=== PATIENT | male | born 1965 | race Caucasian/White ===

== ENCOUNTER 2016-03-30 17:09 | Emergency (ER) | payer BC, OTHER ==
[2016-03-30] MEDS ORDERED: TAMSULOSIN 0.4 MG CAP As Ordered ONE (18:34)
[2016-03-30] MEDS ORDERED: KETOROLAC 30 MG/ML VIAL (J1885) As Ordered ONE (18:34)
[2016-03-30 18:57] LABS: BASO # 0.2 K/mm3 (0.0-0.2); BASO % 2.6 % (0.0-1.0); EOS # 0.1 K/mm3 (0.0-0.50); EOS % 1.7 % (0.0-3.0); LARGE UNSTAINED CELL # 0.2 K/mm3 (0.0-0.4); LARGE UNSTAINED CELL % 2.3 % (0.0-4.0); LYMPH % 22.6 % (24.0-44.0); MEAN CORPUSCULAR HEMOGLOBIN 29.3 pg (27.0-33.0); MEAN CORPUSCULAR HGB CONC 33.4 g/dl (32.0-36.5); MEAN CORPUSCULAR VOLUME 87.9 fl (80.0-96.0); MONO # 0.6 K/mm3 (0.0-0.8); NEUTROPHILS # 5.2 K/mm3 (1.8-7.7); NEUTROPHILS % 63.8 % (36.0-66.0); PLATELET COUNT, AUTOMATED 298 k/mm3 (150-450); RED CELL DISTRIBUTION WIDTH 13.4 % (11.5-14.5); WHITE BLOOD COUNT 8.1 K/mm3 (4.0-10.0)
[2016-03-30 19:35] LABS: ALBUMIN 4.2 GM/DL (3.2-5.2); ALBUMIN/GLOBULIN RATIO 1.08 (1.00-1.93); ALKALINE PHOSPHATASE 65 U/L (45-117); ALT/SGPT 64 U/L (12-78); AMYLASE 64 U/L (25-115); ANION GAP 7 MEQ/L (8-16); AST/SGOT 29 U/L (15-37); BILIRUBIN,DIRECT 0.1 MG/DL (0.0-0.2); BILIRUBIN,TOTAL 0.6 MG/DL (0.2-1.0); BLOOD UREA NITROGEN 14 MG/DL (7-18); CALCIUM LEVEL 9.2 MG/DL (8.5-10.1); CARBON DIOXIDE LEVEL 30 MEQ/L (21-32); CHLORIDE LEVEL 104 MEQ/L (98-107); CREATININE FOR GFR 0.91 MG/DL (0.70-1.30); GLOMERULAR FILTRATION RATE > 60.0 (>60); GLUCOSE, FASTING 97 MG/DL (70-105); SODIUM LEVEL 141 MEQ/L (136-145); TOTAL PROTEIN 8.1 GM/DL (6.4-8.2)
[2016-03-30] MEDS ORDERED: METOCLOPRAMIDE INJ 10MG/2ML VIAL (J2765) As Ordered ONE (19:48)
[2016-03-30] MEDS ORDERED: diphenhydrAMINE INJ 50MG/ML VIAL (J1200) As Ordered ONE (19:48)
--- NOTE | 2016-03-30 20:25 | REP ---
Clinical: Right flank pain. Comparison: 02/17/2016. Findings: Lung bases are clear and stable. Fatty infiltration of the liver appreciated without focal hepatic lesion. Spleen, pancreas, bilateral adrenal glands are normal for noncontrast examination. Cholelithiasis noted without CT evidence for acute cholecystitis. Kidneys demonstrate mild, symmetric, chronic perinephric stranding without hydroureteronephrosis, intrarenal, or obstructing ureteral calculi. The enteric system is without obstruction or acute inflammatory process and a normal terminal ileum and appendix are identified in the right lower quadrant. Pelvis demonstrates normal bladder and age appropriate prostate/seminal vesicles. No ascites. No adenopathy. No free air. Vasculature is normal. Musculoskeletal structures demonstrate chronic L5 spondylolysis with grade 1 anterolisthesis. Impression: 1. Fatty infiltration to the liver. 2. Cholelithiasis without CT evidence for acute cholecystitis. 3. No acute urinary tract pathology. 4. Chronic L5 spondylolysis with grade 1 spondylolisthesis. 5. No free fluid and no acute intra-abdominal or pelvic pathology appreciated. Signed by Boston Beavers MD 03/30/2016 08:16 P
--- NOTE | 2016-03-30 21:12 | EDDOCDS ---
Nurse's Notes [facility] Name: Bang Natarajan Age: 50 yrs Sex: Male : 1965 Arrival Date: 03/30/2016 Time: 17:09 Bed I2 / M2 Private MD: Garrett Diallo P. Diagnosis: Spondylolisthesis, lumbar region;Spondylolysis, lumbar region Presentation: 03/30 17:19 Presenting complaint: Patient states: he was here a month ago for his GB - had an kcs appointment with Dr. Benavides but he got sick and could not go -has another appointment in 2 weeks but he is having another attack today. Mechanism of Injury: No Mechanism of Injury. Adult Sepsis Screening: The patient does not have new or worsening altered mentation. Patient's respiratory rate is less than 22. Systolic blood pressure is greater than 100. Patient has a qSOFA score of 0- Negative Sepsis Screen. Suicide/Homicide risk assessment- the patient denies having any suicidal and/or homicidal ideations and does not present with any other emotional, behavioral or mental health complaints. 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 Transition of care: patient was not received from another setting of care. 17:19 Acuity: RACHEL Level 3 kcs 17:19 Method Of Arrival: Walkin/Carried/Asstd kcs 21:11 Acute neurological deficits are not present. dsf Triage Assessment: 17:21 General: Appears comfortable, well developed, well nourished, well groomed, Behavior is kcs cooperative, pleasant. Pain: Location: Right flank Pain currently is 6 out of 10 on a pain scale. HIV screening NA for this visit Offered previously. Neurological: Level of Consciousness is awake, alert. Respiratory: Airway is patent Respiratory effort is even, unlabored, Respiratory pattern is regular, symmetrical. GI: Denies nausea, vomiting. Derm: Skin is intact, is healthy with good turgor, Skin is dry, Skin is normal. Historical: - Allergies: No known drug Allergies; - Home Meds: 1. omeprazole 20 mg Oral cpDR 1 cap once daily - PMHx: GERD; Cholecystitis; - PSHx: Hernia repair- Umbilical; - Social history: Smoking status: Patient states former smoker of tobacco. No barriers to communication noted, The patient speaks fluent Occitan. - Family history: Not pertinent. - : The pt / caregiver states he / she is not on anticoagulants. Home medication list is obtained from the patient, [employer] import data. - Exposure Risk Screening:: None identified. Screenin:07 Screening information is obtained from the patient. Fall risk: No risks identified. dsf Assistance ADL's: requires no assistance with activities of daily living. Abuse/DV Screen: The patient / caregiver reports he/she is: not in a situation that causes fear, pain or injury. Nutritional screening: No deficits noted. Advance Directives: Currently, there is no health care proxy. home support is adequate. Assessment: 20:18 Adult Sepsis Screening: The patient does not have new or worsening altered mentation. dsf Patient's respiratory rate is less than 22. Systolic blood pressure is greater than 100. Patient has a qSOFA score of 0- Negative Sepsis Screen. General: Appears in no apparent distress, uncomfortable, Behavior is appropriate for age, cooperative. Pain: Location: right flank Pain currently is 7 out of 10 on a pain scale. Quality of pain is described as sharp. Neurological: Level of Consciousness is awake, alert. Cardiovascular: Capillary refill < 3 seconds. Respiratory: Airway is patent Respiratory effort is even, unlabored, Respiratory pattern is regular, symmetrical. Derm: Skin is pink, warm & dry. Musculoskeletal: No deficits noted. 20:44 General: Appears in no apparent distress, comfortable, Behavior is appropriate for age, dsf cooperative. Pain: Location: right flank Pain currently is 3 out of 10 on a pain scale. Cardiovascular: No deficits noted. Respiratory: No deficits noted. Derm: Skin is pink, warm & dry. 21:07 Adult Sepsis Screening: The patient does not have new or worsening altered mentation. dsf Patient's respiratory rate is less than 22. Systolic blood pressure is greater than 100. Patient has a qSOFA score of 0- Negative Sepsis Screen. General: Appears in no apparent distress, comfortable, Behavior is appropriate for age, cooperative. Pain: Pain currently is 3 out of 10 on a pain scale. Neurological: Level of Consciousness is awake, alert. Cardiovascular: No deficits noted. Respiratory: No deficits noted. Derm: Skin is pink, warm & dry. Vital Signs: 17:11 BP 158 / 87; Pulse 76; Resp 18; Temp 97.7(O); Pulse Ox 96% ; Weight 120.2 kg; Height 6 cmb ft. 1 in. (185.42 cm); Pain 6/10; 20:43 Pain 3/10; dsf 20:43 Pain 3/10; dsf 21:07 BP 129 / 72; Pulse 81; Resp 20; Temp 97.0(O); Pulse Ox 96% on R/A; Pain 3/10; dsf 17:11 Body Mass Index 34.96 (120.20 kg, 185.42 cm) cmb Vitals: 17:11 Log In Time: March 30, 2016 at 17:09. cmb ED Course: 17:10 Patient visited by Cynthia Spear. cmb 17:10 Garrett Diallo is Private Physician. cmb 17:10 Patient moved to Waiting cmb 17:12 Patient moved to Pre RCE cmb 17:20 Triage Initiated kcs 18:11 Patient moved to Triage 3 jrd 18:24 Yamil Maddox PA is PHCP. btw 18:24 Janes Zambrano MD is Attending Physician. btw 18:24 Patient visited by Yamil Maddox PA. btw 18:43 Urinalysis Sent. jrd 18:43 Urine Culture Sent. jrd 18:44 Patient moved to TR2 jrd 18:48 Amylase Sent. rs3 18:49 Basic Metabolic Profile Sent. rs3 18:49 CBC with Diff Sent. rs3 18:49 Lipase Sent. rs3 18:49 Liver Profile Sent. rs3 18:52 [facility] Payment Agreement was scanned into [employer] and attached to record. ks16 19:40 Patient moved to PR1 / 25 dsf 19:45 Patient moved to PD2 / 27 dsf 19:45 Patient moved to I2 / M2 dsf 20:18 Inserted saline lock: 20 gauge in right hand The patient tolerated the procedure well. dsf 20:19 Patient visited by Sofia Pimentel,RN. dsf 20:44 Patient visited by Sofia Pimentel,SKY. dsf 20:55 CT ABD & PELVIS: No Contrast Returned. EDMS 21:02 Garrett Diallo is Referral Physician. btw 21:07 The patient / caregiver is instructed regarding the plan of care and ED course. dsf 21:07 Discontinued lock intact, bleeding controlled, pressure dressing applied, No dsf redness/swelling at site. No procedures done that require assistance. Administered Medications: 18:48 Drug: ketorolac 30 mg [ketorolac 30 mg/mL (1 mL) injection solution (1 mL)] Route: IM; rs3 Site: left gluteus; 18:48 Drug: Tamsulosin 0.4 mg [tamsulosin 0.4 mg capsule (1 caps)] Route: PO; rs3 19:47 CANCELLED (Other Intervention Used): Robaxin 500 mg IVPB at 200 mL/hr once over 15 btw mins; dilute in 50mL of NS 20:18 Drug: Metoclopramide 20 mg [metoclopramide 5 mg/mL injection solution] Route: IV; Rate: dsf 80 mg/hr; Infused Over: 15 mins; Site: right hand; 20:43 Follow up: Pain 3/10 Adult; IV Status: Completed infusion; IV Intake: 50ml dsf 20:43 Follow up: Pain 310 Adult dsf 20:18 Drug: diphenhydrAMINE 50 mg [diphenhydramine 50 mg/mL injection solution (1 mL)] Route: dsf IVP; Site: right hand; Intake: 20:43 IV: 50.00ml; Total: 50.00ml. dsf Order Results: Lab Order: Amylase; SPEC'M 03/30/16 18:44 Test: AMYLASE; Value: 64; Range: 25-115; Units: U/L; Status: F Lab Order: Basic Metabolic Profile; SPEC'M 03/30/16 18:44 Test: GLUCOSE, FASTING; Value: 97; Range: 70-105; Units: MG/DL; Status: F Test: BLOOD UREA NITROGEN; Value: 14; Range: 7-18; Units: MG/DL; Status: F Test: CREATININE FOR GFR; Value: 0.91; Range: 0.70-1.30; Units: MG/DL; Status: F Test: GLOMERULAR FILTRATION RATE; Value: > 60.0; Range: >60; Status: F Test: SODIUM LEVEL; Value: 141; Range: 136-145; Units: MEQ/L; Status: F Test: POTASSIUM SERUM; Value: 4.0; Range: 3.5-5.1; Units: MEQ/L; Status: F Test: CHLORIDE LEVEL; Value: 104; Range: 98-107; Units: MEQ/L; Status: F Test: CARBON DIOXIDE LEVEL; Value: 30; Range: 21-32; Units: MEQ/L; Status: F Test: ANION GAP; Value: 7; Range: 8-16; Abnormal: Below low normal; Units: MEQ/L; Status: F Test: CALCIUM LEVEL; Value: 9.2; Range: 8.5-10.1; Units: MG/DL; Status: F Test Note: ; Units are mL/min/1.73 m2 Chronic Kidney Disease Staging per NKF: Stage I & II GFR >=60 Normal to Mildly Decreased Stage III GFR 30-59 Moderately Decreased Stage IV GFR 15-29 Severely Decreased Stage V GFR <15 Very Little GFR Left ESRD GFR <15 on ORDERLIES 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 Lab Order: CBC with Diff; SPEC'M 03/30/16 18:44 Test: WHITE BLOOD COUNT; Value: 8.1; Range: 4.0-10.0; Units: K/mm3; Status: F Test: RED BLOOD COUNT; Value: 5.09; Range: 4.30-6.10; Units: M/mm3; Status: F Test: HEMOGLOBIN; Value: 14.9; Range: 14.0-18.0; Units: g/dl; Status: F Test: HEMATOCRIT; Value: 44.7; Range: 42.0-52.0; Units: %; Status: F Test: MEAN CORPUSCULAR VOLUME; Value: 87.9; Range: 80.0-96.0; Units: fl; Status: F Test: MEAN CORPUSCULAR HEMOGLOBIN; Value: 29.3; Range: 27.0-33.0; Units: pg; Status: F Test: MEAN CORPUSCULAR HGB CONC; Value: 33.4; Range: 32.0-36.5; Units: g/dl; Status: F Test: RED CELL DISTRIBUTION WIDTH; Value: 13.4; Range: 11.5-14.5; Units: %; Status: F Test: PLATELET COUNT, AUTOMATED; Value: 298; Range: 150-450; Units: k/mm3; Status: F Test: NEUTROPHILS %; Value: 63.8; Range: 36.0-66.0; Units: %; Status: F Test: LYMPH %; Value: 22.6; Range: 24.0-44.0; Abnormal: Below low normal; Units: %; Status: F Test: MONO %; Value: 7.0; Range: 0.0-5.0; Abnormal: Above high normal; Units: %; Status: F Test: EOS %; Value: 1.7; Range: 0.0-3.0; Units: %; Status: F Test: BASO %; Value: 2.6; Range: 0.0-1.0; Abnormal: Above high normal; Units: %; Status: F Test: LARGE UNSTAINED CELL %; Value: 2.3; Range: 0.0-4.0; Units: %; Status: F Test: NEUTROPHILS #; Value: 5.2; Range: 1.8-7.7; Units: K/mm3; Status: F Test: LYMPH #; Value: 2.0; Range: 1.5-4.5; Units: K/mm3; Status: F Test: MONO #; Value: 0.6; Range: 0.0-0.8; Units: K/mm3; Status: F Test: EOS #; Value: 0.1; Range: 0.0-0.50; Units: K/mm3; Status: F Test: BASO #; Value: 0.2; Range: 0.0-0.2; Units: K/mm3; Status: F Test: LARGE UNSTAINED CELL #; Value: 0.2; Range: 0.0-0.4; Units: K/mm3; Status: F Lab Order: Lipase; [facility]' 03/30/16 18:44 Test: LIPASE; Value: 135; Range: 73-393; Units: U/L; Status: F Lab Order: Liver Profile; [facility]' 03/30/16 18:44 Test: AST/SGOT; Value: 29; Range: 15-37; Units: U/L; Status: F Test: ALT/SGPT; Value: 64; Range: 12-78; Units: U/L; Status: F Test: ALKALINE PHOSPHATASE; Value: 65; Range: 45-117; Units: U/L; Status: F Test: BILIRUBIN,TOTAL; Value: 0.6; Range: 0.2-1.0; Units: MG/DL; Status: F Test: BILIRUBIN,DIRECT; Value: 0.1; Range: 0.0-0.2; Units: MG/DL; Status: F Test: TOTAL PROTEIN; Value: 8.1; Range: 6.4-8.2; Units: GM/DL; Status: F Test: ALBUMIN; Value: 4.2; Range: 3.2-5.2; Units: GM/DL; Status: F Test: ALBUMIN/GLOBULIN RATIO; Value: 1.08; Range: 1.00-1.93; Status: F Lab Order: Urinalysis; SPEC'M 03/30/16 18:37 Test: APPEARANCE, URINE; Value: HAZY; Range: CLEAR; Status: F Test: COLOR, URINE; Value: YELLOW; Range: YELLOW; Status: F Test: PH,URINE; Value: 5.0; Range: 5.0-9.0; Units: UNITS; Status: F Test: SPECIFIC GRAVITY URINE AUTO; Value: 1.032; Range: 1.002-1.035; Status: F Test: PROTEIN, URINE AUTO; Value: 1+; Range: NEGATIVE; Abnormal: Above high normal; Units: mg/dL; Status: F Test: GLUCOSE, URINE (UA) AUTO; Value: NEGATIVE; Range: NEGATIVE; Units: mg/dL; Status: F Test: KETONE, URINE AUTO; Value: NEGATIVE; Range: NEGATIVE; Units: mg/dL; Status: F Test: UROBILINOGEN, URINE AUTO; Value: 0.2; Range: 0.0-2.0; Units: mg/dL; Status: F Test: BILIRUBIN, URINE AUTO; Value: NEGATIVE; Range: NEGATIVE; Status: F Test: NITRITE, URINE AUTO; Value: NEGATIVE; Range: NEGATIVE; Status: F Test: LEUKOCYTE ESTERASE, URINE AUTO; Value: NEGATIVE; Range: NEGATIVE; Status: F Test: BLOOD, URINE BLOOD; Value: NEGATIVE; Range: NEGATIVE; Status: F Test: WBC, URINE AUTO; Value: 4; Range: 0-3; Abnormal: Above high normal; Units: /HPF; Status: F Test: RBC, URINE AUTO; Value: 1; Range: 0-3; Units: /HPF; Status: F Test: BACTERIA, URINE AUTO; Value: NEGATIVE; Range: NEGATIVE; Status: F Test: SQUAMOUS EPITHELIAL CELL UR AU; Value: 0; Range: 0-6; Units: /HPF; Status: F Test: MUCUS, URINE; Value: MODERATE; Range: NEGATIVE; Status: F Test: HYALINE CAST, URINE AUTO; Value: 1; Range: 0-1; Units: /LPF; Status: F Radiology Order: CT ABD & PELVIS: No Contrast Test: CT ABD & PELVIS: No Contrast REASON FOR EXAMINATION: R flank pain; Clinical: Right flank pain.; ; Comparison: 02/17/2016.; ; Findings:; Lung bases are clear and stable.; ; Fatty infiltration of the liver appreciated without focal hepatic lesion.; Spleen, pancreas, bilateral adrenal glands are normal for noncontrast; examination. Cholelithiasis noted without CT evidence for acute cholecystitis.; Kidneys demonstrate mild, symmetric, chronic perinephric stranding without; hydroureteronephrosis, intrarenal, or obstructing ureteral calculi. The enteric; system is without obstruction or acute inflammatory process and a normal terminal; ileum and appendix are identified in the right lower quadrant. Pelvis; demonstrates normal bladder and age appropriate prostate/seminal vesicles. No; ascites. No adenopathy. No free air. Vasculature is normal. Musculoskeletal; structures demonstrate chronic L5 spondylolysis with grade 1 anterolisthesis.; ; Impression:; 1. Fatty infiltration to the liver.; 2. Cholelithiasis without CT evidence for acute cholecystitis.; 3. No acute urinary tract pathology.; 4. 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 No free fluid and no acute intra-abdominal or pelvic pathology appreciated.; ; ; Signed by; Boston Beavers MD 03/30/2016 08:16 P; Outcome: 21:02 Discharge ordered by Provider. btw 21:07 Discharge Assessment: Patient awake, alert and oriented x 3. No cognitive and/or dsf functional deficits noted. Patient verbalized understanding of disposition instructions. patient administered narcotics - no. The following High Risk Discharge criteria are identified: None. Discharged to home ambulatory. Condition: stable. Discharge instructions given to patient, Instructed on discharge instructions, follow up and referral plans. medication usage, no driving heavy equipment, Demonstrated understanding of instructions, medications, Pt was receptive of discharge instructions/ teaching. Prescriptions given X 2, Work note provided to patient. CT Study completed. Property sent home with patient. 21:11 Patient left the ED. dsf Signatures: Dispatcher [facility] Tamela Del Rosario RN RN kcs Lois MistryRN RN rs3 Yamil Maddox PA PA btw Fuller, Desiree,RN RN Cynthia Candelaria Joseph, SHARMILA RN SURGERY ICU jrd Cindy Negron, Reg Reg ks16 MTDD
--- NOTE | 2016-03-30 21:12 | EDDOCDS ---
Physician Documentation [facility] Name: Bang Natarajan Age: 50 yrs Sex: Male : 1965 Arrival Date: 03/30/2016 Time: 17:09 Bed I2 / M2 Private MD: Garrett Diallo P. Disposition: 03/30/16 21:02 Discharged to Home/Self Care. Impression: Spondylolisthesis, lumbar region, Spondylolysis, lumbar region. - Condition is Stable. - Discharge Instructions: Back Pain, Adult. - Prescriptions for Medrol (Watson) 4 mg Oral Tablets, Dose Pack - take 1 Pack by ORAL route as directed - follow package instructions; 1 packet. Robaxin- 750 750 mg Oral Tablet - take 1 tablet by ORAL route every 6 hours As needed; 40 tablet. - Medication Reconciliation, Local Pharmacy Hours form. - Follow up: Garrett Diallo; When: 1 - 2 days; Reason: Further diagnostic work-up, Recheck today's complaints, Continuance of care. - Problem is an acute exacerbation. - Symptoms have improved. Historical: - Allergies: No known drug Allergies; - Home Meds: 1. omeprazole 20 mg Oral cpDR 1 cap once daily - PMHx: GERD; Cholecystitis; - PSHx: Hernia repair- Umbilical; - Social history: Smoking status: Patient states former smoker of tobacco. No barriers to communication noted, The patient speaks fluent Czech. - Family history: Not pertinent. - : The pt / caregiver states he / she is not on anticoagulants. Home medication list is obtained from the patient, [employer] import data. - Exposure Risk Screening:: None identified. Vital Signs: 03/30 17:11 BP 158 / 87; Pulse 76; Resp 18; Temp 97.7(O); Pulse Ox 96% ; Weight 120.2 kg / 265 lbs; cmb Height 6 ft. 1 in. (185.42 cm); Pain 6/10; 20:43 Pain 3/10; dsf 20:43 Pain 3/10; dsf 21:07 BP 129 / 72; Pulse 81; Resp 20; Temp 97.0(O); Pulse Ox 96% on R/A; Pain 3/10; dsf 17:11 Body Mass Index 34.96 (120.20 kg, 185.42 cm) cmb MDM: 18:32 ketorolac 30 mg IM once ordered. btw 18:32 Tamsulosin Extended Release 24 hour Capsule 0.4 mg PO once ordered. btw 18:33 Amylase Ordered. EDMS 18:33 Basic Metabolic Profile Ordered. EDMS 18:33 CBC with Diff Ordered. EDMS 18:33 Lipase Ordered. EDMS 18:33 Liver Profile Ordered. EDMS 18:33 Urinalysis Ordered. EDMS 18:33 Urine Culture Ordered. EDMS 18:33 NOTHING BY MOUTH+DIET ordered. EDMS 18:50 Financial registration complete. ks16 18:52 [facility] Payment Agreement was scanned into [employer] and attached to record. ks16 19:12 CBC with Diff Reviewed. btw 19:12 Urinalysis Reviewed. btw 19:38 Basic Metabolic Profile Reviewed. btw 19:38 Amylase Reviewed. btw 19:38 Lipase Reviewed. btw 19:38 Liver Profile Reviewed. btw 19:47 IV Saline Lock ordered. btw 19:47 Metoclopramide 20 mg IV at 80 mg/hr once over 15 mins ordered. btw 19:47 diphenhydrAMINE 50 mg IVP once ordered. btw 19:48 CT ABD & PELVIS: No Contrast Ordered. EDMS 20:56 CT ABD & PELVIS: No Contrast Reviewed. btw Administered Medications: 18:48 Drug: ketorolac 30 mg [ketorolac 30 mg/mL (1 mL) injection solution (1 mL)] Route: IM; rs3 Site: left gluteus; 18:48 Drug: Tamsulosin 0.4 mg [tamsulosin 0.4 mg capsule (1 caps)] Route: PO; rs3 19:47 CANCELLED (Other Intervention Used): Robaxin 500 mg IVPB at 200 mL/hr once over 15 btw mins; dilute in 50mL of NS 20:18 Drug: Metoclopramide 20 mg [metoclopramide 5 mg/mL injection solution] Route: IV; Rate: dsf 80 mg/hr; Infused Over: 15 mins; Site: right hand; 20:43 Follow up: Pain 3/10 Adult; IV Status: Completed infusion; IV Intake: 50ml dsf 20:43 Follow up: Pain 3/10 Adult dsf 20:18 Drug: diphenhydrAMINE 50 mg [diphenhydramine 50 mg/mL injection solution (1 mL)] Route: dsf IVP; Site: right hand; Signatures: Dispatcher [employer] Tamela Del Rosario RN RN kcs Wolfenden, Brandon, PA PA Sofia Higgins RN RN dsf Sorenson, Kimberly, Reg Reg ks16 Lois Mistry RN rs3 The chart was reviewed and I authenticate all verbal orders and agree with the evaluation and treatment provided.Corrections: (The following items were deleted from the chart) 19:47 19:47 Robaxin 500 mg IVPB at 200 mL/hr once over 15 mins; dilute in 50mL of NS ordered. shameka myles Attachments: 18:52 [facility] Payment Agreement [email or web address] MTDD
--- NOTE | 2016-04-01 22:12 | EDDOCDS ---
Nurse's Notes [facility] Name: Bang Natarajan Age: 50 yrs Sex: Male : 1965 Arrival Date: 03/30/2016 Time: 17:09 Bed I2 / M2 Private MD: Garrett Diallo P. Diagnosis: Spondylolisthesis, lumbar region;Spondylolysis, lumbar region Presentation: 03/30 17:19 Presenting complaint: Patient states: he was here a month ago for his GB - had an kcs appointment with Dr. Benavides but he got sick and could not go -has another appointment in 2 weeks but he is having another attack today. Mechanism of Injury: No Mechanism of Injury. Adult Sepsis Screening: The patient does not have new or worsening altered mentation. Patient's respiratory rate is less than 22. Systolic blood pressure is greater than 100. Patient has a qSOFA score of 0- Negative Sepsis Screen. Suicide/Homicide risk assessment- the patient denies having any suicidal and/or homicidal ideations and does not present with any other emotional, behavioral or mental health complaints. Status: Patient is not a health services manager or dependent. Transition of care: patient was not received from another setting of care. 17:19 Acuity: RACHEL Level 3 kcs 17:19 Method Of Arrival: Walkin/Carried/Asstd kcs 21:11 Acute neurological deficits are not present. dsf Triage Assessment: 17:21 General: Appears comfortable, well developed, well nourished, well groomed, Behavior is kcs cooperative, pleasant. Pain: Location: Right flank Pain currently is 6 out of 10 on a pain scale. HIV screening NA for this visit Offered previously. Neurological: Level of Consciousness is awake, alert. Respiratory: Airway is patent Respiratory effort is even, unlabored, Respiratory pattern is regular, symmetrical. GI: Denies nausea, vomiting. Derm: Skin is intact, is healthy with good turgor, Skin is dry, Skin is normal. Historical: - Allergies: No known drug Allergies; - Home Meds: 1. omeprazole 20 mg Oral cpDR 1 cap once daily - PMHx: GERD; Cholecystitis; - PSHx: Hernia repair- Umbilical; - Social history: Smoking status: Patient states former smoker of tobacco. No barriers to communication noted, The patient speaks fluent Amharic. - Family history: Not pertinent. - : The pt / caregiver states he / she is not on anticoagulants. Home medication list is obtained from the patient, [employer] import data. - Exposure Risk Screening:: None identified. Screenin:07 Screening information is obtained from the patient. Fall risk: No risks identified. dsf Assistance ADL's: requires no assistance with activities of daily living. Abuse/DV Screen: The patient / caregiver reports he/she is: not in a situation that causes fear, pain or injury. Nutritional screening: No deficits noted. Advance Directives: Currently, there is no health care proxy. home support is adequate. Assessment: 20:18 Adult Sepsis Screening: The patient does not have new or worsening altered mentation. dsf Patient's respiratory rate is less than 22. Systolic blood pressure is greater than 100. Patient has a qSOFA score of 0- Negative Sepsis Screen. General: Appears in no apparent distress, uncomfortable, Behavior is appropriate for age, cooperative. Pain: Location: right flank Pain currently is 7 out of 10 on a pain scale. Quality of pain is described as sharp. Neurological: Level of Consciousness is awake, alert. Cardiovascular: Capillary refill < 3 seconds. Respiratory: Airway is patent Respiratory effort is even, unlabored, Respiratory pattern is regular, symmetrical. Derm: Skin is pink, warm & dry. Musculoskeletal: No deficits noted. 20:44 General: Appears in no apparent distress, comfortable, Behavior is appropriate for age, dsf cooperative. Pain: Location: right flank Pain currently is 3 out of 10 on a pain scale. Cardiovascular: No deficits noted. Respiratory: No deficits noted. Derm: Skin is pink, warm & dry. 21:07 Adult Sepsis Screening: The patient does not have new or worsening altered mentation. dsf Patient's respiratory rate is less than 22. Systolic blood pressure is greater than 100. Patient has a qSOFA score of 0- Negative Sepsis Screen. General: Appears in no apparent distress, comfortable, Behavior is appropriate for age, cooperative. Pain: Pain currently is 3 out of 10 on a pain scale. Neurological: Level of Consciousness is awake, alert. Cardiovascular: No deficits noted. Respiratory: No deficits noted. Derm: Skin is pink, warm & dry. Vital Signs: 17:11 BP 158 / 87; Pulse 76; Resp 18; Temp 97.7(O); Pulse Ox 96% ; Weight 120.2 kg; Height 6 cmb ft. 1 in. (185.42 cm); Pain 6/10; 20:43 Pain 3/10; dsf 20:43 Pain 3/10; dsf 21:07 BP 129 / 72; Pulse 81; Resp 20; Temp 97.0(O); Pulse Ox 96% on R/A; Pain 3/10; dsf 17:11 Body Mass Index 34.96 (120.20 kg, 185.42 cm) cmb Vitals: 17:11 Log In Time: March 30, 2016 at 17:09. cmb ED Course: 17:10 Patient visited by Cynthia Spear. cmb 17:10 Garrett Diallo is Private Physician. cmb 17:10 Patient moved to Waiting cmb 17:12 Patient moved to Pre RCE cmb 17:20 Triage Initiated kcs 18:11 Patient moved to Triage 3 jrd 18:24 Yamil Maddox PA is PHCP. btw 18:24 Janes Zambrano MD is Attending Physician. btw 18:24 Patient visited by Yamil Maddox PA. btw 18:43 Urinalysis Sent. jrd 18:43 Urine Culture Sent. jrd 18:44 Patient moved to TR2 jrd 18:48 Amylase Sent. rs3 18:49 Basic Metabolic Profile Sent. rs3 18:49 CBC with Diff Sent. rs3 18:49 Lipase Sent. rs3 18:49 Liver Profile Sent. rs3 18:52 [facility] [place] Agreement was scanned into [employer] and attached to record. ks16 19:40 Patient moved to PR1 / 25 dsf 19:45 Patient moved to PD2 / 27 dsf 19:45 Patient moved to I2 / M2 dsf 20:18 Inserted saline lock: 20 gauge in right hand The patient tolerated the procedure well. dsf 20:19 Patient visited by Sofia Pimentel,RN. dsf 20:44 Patient visited by Sofia Pimentel,SKY. dsf 20:55 CT ABD & PELVIS: No Contrast Returned. EDMS 21:02 Garrett Diallo is Referral Physician. btw 21:07 The patient / caregiver is instructed regarding the plan of care and ED course. dsf 21:07 Discontinued lock intact, bleeding controlled, pressure dressing applied, No dsf redness/swelling at site. No procedures done that require assistance. 03/31 11:48 T-Sheet-- Draft Copy was scanned into [employer] and attached to record. gb Administered Medications: 03/30 18:48 Drug: ketorolac 30 mg [ketorolac 30 mg/mL (1 mL) injection solution (1 mL)] Route: IM; rs3 Site: left gluteus; 18:48 Drug: Tamsulosin 0.4 mg [tamsulosin 0.4 mg capsule (1 caps)] Route: PO; rs3 19:47 CANCELLED (Other Intervention Used): Robaxin 500 mg IVPB at 200 mL/hr once over 15 btw mins; dilute in 50mL of NS 20:18 Drug: Metoclopramide 20 mg [metoclopramide 5 mg/mL injection solution] Route: IV; Rate: dsf 80 mg/hr; Infused Over: 15 mins; Site: right hand; 20:43 Follow up: Pain 3/10 Adult; IV Status: Completed infusion; IV Intake: 50ml dsf 20:43 Follow up: Pain 3/10 Adult dsf 20:18 Drug: diphenhydrAMINE 50 mg [diphenhydramine 50 mg/mL injection solution (1 mL)] Route: dsf IVP; Site: right hand; Intake: 20:43 IV: 50.00ml; Total: 50.00ml. dsf Order Results: Lab Order: Amylase; SPEC'M 03/30/16 18:44 Test: AMYLASE; Value: 64; Range: 25-115; Units: U/L; Status: F Lab Order: Basic Metabolic Profile; SPEC'M 03/30/16 18:44 Test: GLUCOSE, FASTING; Value: 97; Range: 70-105; Units: MG/DL; Status: F Test: BLOOD UREA NITROGEN; Value: 14; Range: 7-18; Units: MG/DL; Status: F Test: CREATININE FOR GFR; Value: 0.91; Range: 0.70-1.30; Units: MG/DL; Status: F Test: GLOMERULAR FILTRATION RATE; Value: > 60.0; Range: >60; Status: F Test: SODIUM LEVEL; Value: 141; Range: 136-145; Units: MEQ/L; Status: F Test: POTASSIUM SERUM; Value: 4.0; Range: 3.5-5.1; Units: MEQ/L; Status: F Test: CHLORIDE LEVEL; Value: 104; Range: 98-107; Units: MEQ/L; Status: F Test: CARBON DIOXIDE LEVEL; Value: 30; Range: 21-32; Units: MEQ/L; Status: F Test: ANION GAP; Value: 7; Range: 8-16; Abnormal: Below low normal; Units: MEQ/L; Status: F Test: CALCIUM LEVEL; Value: 9.2; Range: 8.5-10.1; Units: MG/DL; Status: F Test Note: ; Units are mL/min/1.73 m2 Chronic Kidney Disease Staging per NKF: Stage I & II GFR >=60 Normal to Mildly Decreased Stage III GFR 30-59 Moderately Decreased Stage IV GFR 15-29 Severely Decreased Stage V GFR <15 Very Little GFR Left ESRD GFR <15 on [employer]INE [employer]OTOGR[employer] Lab Order: CBC with Diff; SPEC'M 03/30/16 18:44 Test: WHITE BLOOD COUNT; Value: 8.1; Range: 4.0-10.0; Units: K/mm3; Status: F Test: RED BLOOD COUNT; Value: 5.09; Range: 4.30-6.10; Units: M/mm3; Status: F Test: HEMOGLOBIN; Value: 14.9; Range: 14.0-18.0; Units: g/dl; Status: F Test: HEMATOCRIT; Value: 44.7; Range: 42.0-52.0; Units: %; Status: F Test: MEAN CORPUSCULAR VOLUME; Value: 87.9; Range: 80.0-96.0; Units: fl; Status: F Test: MEAN CORPUSCULAR HEMOGLOBIN; Value: 29.3; Range: 27.0-33.0; Units: pg; Status: F Test: MEAN CORPUSCULAR HGB CONC; Value: 33.4; Range: 32.0-36.5; Units: g/dl; Status: F Test: RED CELL DISTRIBUTION WIDTH; Value: 13.4; Range: 11.5-14.5; Units: %; Status: F Test: PLATELET COUNT, AUTOMATED; Value: 298; Range: 150-450; Units: k/mm3; Status: F Test: NEUTROPHILS %; Value: 63.8; Range: 36.0-66.0; Units: %; Status: F Test: LYMPH %; Value: 22.6; Range: 24.0-44.0; Abnormal: Below low normal; Units: %; Status: F Test: MONO %; Value: 7.0; Range: 0.0-5.0; Abnormal: Above high normal; Units: %; Status: F Test: EOS %; Value: 1.7; Range: 0.0-3.0; Units: %; Status: F Test: BASO %; Value: 2.6; Range: 0.0-1.0; Abnormal: Above high normal; Units: %; Status: F Test: LARGE UNSTAINED CELL %; Value: 2.3; Range: 0.0-4.0; Units: %; Status: F Test: NEUTROPHILS #; Value: 5.2; Range: 1.8-7.7; Units: K/mm3; Status: F Test: LYMPH #; Value: 2.0; Range: 1.5-4.5; Units: K/mm3; Status: F Test: MONO #; Value: 0.6; Range: 0.0-0.8; Units: K/mm3; Status: F Test: EOS #; Value: 0.1; Range: 0.0-0.50; Units: K/mm3; Status: F Test: BASO #; Value: 0.2; Range: 0.0-0.2; Units: K/mm3; Status: F Test: LARGE UNSTAINED CELL #; Value: 0.2; Range: 0.0-0.4; Units: K/mm3; Status: F Lab Order: Lipase; SPEC'M 03/30/16 18:44 Test: LIPASE; Value: 135; Range: 73-393; Units: U/L; Status: F Lab Order: Liver Profile; SPEC'M 03/30/16 18:44 Test: AST/SGOT; Value: 29; Range: 15-37; Units: U/L; Status: F Test: ALT/SGPT; Value: 64; Range: 12-78; Units: U/L; Status: F Test: ALKALINE PHOSPHATASE; Value: 65; Range: 45-117; Units: U/L; Status: F Test: BILIRUBIN,TOTAL; Value: 0.6; Range: 0.2-1.0; Units: MG/DL; Status: F Test: BILIRUBIN,DIRECT; Value: 0.1; Range: 0.0-0.2; Units: MG/DL; Status: F Test: TOTAL PROTEIN; Value: 8.1; Range: 6.4-8.2; Units: GM/DL; Status: F Test: ALBUMIN; Value: 4.2; Range: 3.2-5.2; Units: GM/DL; Status: F Test: ALBUMIN/GLOBULIN RATIO; Value: 1.08; Range: 1.00-1.93; Status: F Lab Order: Urinalysis; SPEC'M 03/30/16 18:37 Test: APPEARANCE, URINE; Value: HAZY; Range: CLEAR; Status: F Test: COLOR, URINE; Value: YELLOW; Range: YELLOW; Status: F Test: PH,URINE; Value: 5.0; Range: 5.0-9.0; Units: UNITS; Status: F Test: SPECIFIC GRAVITY URINE AUTO; Value: 1.032; Range: 1.002-1.035; Status: F Test: PROTEIN, URINE AUTO; Value: 1+; Range: NEGATIVE; Abnormal: Above high normal; Units: mg/dL; Status: F Test: GLUCOSE, URINE (UA) AUTO; Value: NEGATIVE; Range: NEGATIVE; Units: mg/dL; Status: F Test: KETONE, URINE AUTO; Value: NEGATIVE; Range: NEGATIVE; Units: mg/dL; Status: F Test: UROBILINOGEN, URINE AUTO; Value: 0.2; Range: 0.0-2.0; Units: mg/dL; Status: F Test: BILIRUBIN, URINE AUTO; Value: NEGATIVE; Range: NEGATIVE; Status: F Test: NITRITE, URINE AUTO; Value: NEGATIVE; Range: NEGATIVE; Status: F Test: LEUKOCYTE ESTERASE, URINE AUTO; Value: NEGATIVE; Range: NEGATIVE; Status: F Test: BLOOD, URINE BLOOD; Value: NEGATIVE; Range: NEGATIVE; Status: F Test: WBC, URINE AUTO; Value: 4; Range: 0-3; Abnormal: Above high normal; Units: /HPF; Status: F Test: RBC, URINE AUTO; Value: 1; Range: 0-3; Units: /HPF; Status: F Test: BACTERIA, URINE AUTO; Value: NEGATIVE; Range: NEGATIVE; Status: F Test: SQUAMOUS EPITHELIAL CELL UR AU; Value: 0; Range: 0-6; Units: /HPF; Status: F Test: MUCUS, URINE; Value: MODERATE; Range: NEGATIVE; Status: F Test: HYALINE CAST, URINE AUTO; Value: 1; Range: 0-1; Units: /LPF; Status: F Lab Order: Urine Culture; SPEC'M 03/30/16 18:37 Test: URINE CULTURE; Value: URINE CULTURE RESULT NO GROWTH; Status: F Radiology Order: CT ABD & PELVIS: No Contrast Test: CT ABD & PELVIS: No Contrast REASON FOR EXAMINATION: R flank pain; Clinical: Right flank pain.; ; Comparison: 02/17/2016.; ; Findings:; Lung bases are clear and stable.; ; Fatty infiltration of the liver appreciated without focal hepatic lesion.; Spleen, pancreas, bilateral adrenal glands are normal for noncontrast; examination. Cholelithiasis noted without CT evidence for acute cholecystitis.; Kidneys demonstrate mild, symmetric, chronic perinephric stranding without; hydroureteronephrosis, intrarenal, or obstructing ureteral calculi. The enteric; system is without obstruction or acute inflammatory process and a normal terminal; ileum and appendix are identified in the right lower quadrant. Pelvis; demonstrates normal bladder and age appropriate prostate/seminal vesicles. No; ascites. No adenopathy. No free air. Vasculature is normal. Musculoskeletal; structures demonstrate chronic L5 spondylolysis with grade 1 anterolisthesis.; ; Impression:; 1. Fatty infiltration to the liver.; 2. Cholelithiasis without CT evidence for acute cholecystitis.; 3. No acute urinary tract pathology.; 4. 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 No free fluid and no acute intra-abdominal or pelvic pathology appreciated.; ; ; Signed by; Boston Beavers MD 03/30/2016 08:16 P; Outcome: 21:02 Discharge ordered by Provider. btw 21:07 Discharge Assessment: Patient awake, alert and oriented x 3. No cognitive and/or dsf functional deficits noted. Patient verbalized understanding of disposition instructions. patient administered narcotics - no. The following High Risk Discharge criteria are identified: None. Discharged to home ambulatory. Condition: stable. Discharge instructions given to patient, Instructed on discharge instructions, follow up and referral plans. medication usage, no driving heavy equipment, Demonstrated understanding of instructions, medications, Pt was receptive of discharge instructions/ teaching. Prescriptions given X 2, Work note provided to patient. CT Study completed. Property sent home with patient. 21:11 Patient left the ED. dsf Signatures: Dispatcher [employer] EDTamela Hernandez, RN RN [facility] Siobhan Reynolds, Reg Reg gb Lois Mistry RN RN rs3 Yamil Maddox PA PA btw Fuller, Desiree, RN RN dsf Cynthia Spear Joseph, [employer] Cindy Suh, Reg Reg [email or web address] Chart Complete MTDD
--- NOTE | 2016-04-01 22:12 | EDDOCDS ---
Physician Documentation [facility] Name: Bang Natarajan Age: 50 yrs Sex: Male : 1965 Arrival Date: 03/30/2016 Time: 17:09 Bed I2 / M2 Private MD: Garrett Diallo P. Disposition: 03/30/16 21:02 Discharged to Home/Self Care. Impression: Spondylolisthesis, lumbar region, Spondylolysis, lumbar region. - Condition is Stable. - Discharge Instructions: Back Pain, Adult. - Prescriptions for Medrol (Watson) 4 mg Oral Tablets, Dose Pack - take 1 Pack by ORAL route as directed - follow package instructions; 1 packet. Robaxin- 750 750 mg Oral Tablet - take 1 tablet by ORAL route every 6 hours As needed; 40 tablet. - Medication Reconciliation, Local Pharmacy Hours form. - Follow up: Garrett Diallo; When: 1 - 2 days; Reason: Further diagnostic work-up, Recheck today's complaints, Continuance of care. - Problem is an acute exacerbation. - Symptoms have improved. Historical: - Allergies: No known drug Allergies; - Home Meds: 1. omeprazole 20 mg Oral cpDR 1 cap once daily - PMHx: GERD; Cholecystitis; - PSHx: Hernia repair- Umbilical; - Social history: Smoking status: Patient states former smoker of tobacco. No barriers to communication noted, The patient speaks fluent Arabic. - Family history: Not pertinent. - : The pt / caregiver states he / she is not on anticoagulants. Home medication list is obtained from the patient, [employer] import data. - Exposure Risk Screening:: None identified. Vital Signs: 03/30 17:11 BP 158 / 87; Pulse 76; Resp 18; Temp 97.7(O); Pulse Ox 96% ; Weight 120.2 kg / 265 lbs; cmb Height 6 ft. 1 in. (185.42 cm); Pain 6/10; 20:43 Pain 3/10; dsf 20:43 Pain 3/10; dsf 21:07 BP 129 / 72; Pulse 81; Resp 20; Temp 97.0(O); Pulse Ox 96% on R/A; Pain 3/10; dsf 17:11 Body Mass Index 34.96 (120.20 kg, 185.42 cm) cmb MDM: 18:32 ketorolac 30 mg IM once ordered. btw 18:32 Tamsulosin Extended Release 24 hour Capsule 0.4 mg PO once ordered. btw 18:33 Amylase Ordered. EDMS 18:33 Basic Metabolic Profile Ordered. EDMS 18:33 CBC with Diff Ordered. EDMS 18:33 Lipase Ordered. EDMS 18:33 Liver Profile Ordered. EDMS 18:33 Urinalysis Ordered. EDMS 18:33 Urine Culture Ordered. EDMS 18:33 NOTHING BY MOUTH+DIET ordered. EDMS 18:50 Financial registration complete. [email or web address] 18:52 [facility] Payment Agreement was scanned into [employer] and attached to record. ks16 19:12 CBC with Diff Reviewed. btw 19:12 Urinalysis Reviewed. btw 19:38 Basic Metabolic Profile Reviewed. btw 19:38 Amylase Reviewed. btw 19:38 Lipase Reviewed. btw 19:38 Liver Profile Reviewed. btw 19:47 IV Saline Lock ordered. btw 19:47 Metoclopramide 20 mg IV at 80 mg/hr once over 15 mins ordered. btw 19:47 diphenhydrAMINE 50 mg IVP once ordered. btw 19:48 CT ABD & PELVIS: No Contrast Ordered. EDMS 20:56 CT ABD & PELVIS: No Contrast Reviewed. btw 03/31 11:48 T-Sheet-- Draft Copy was scanned into [employer] and attached to record. gb Administered Medications: 03/30 18:48 Drug: ketorolac 30 mg [ketorolac 30 mg/mL (1 mL) injection solution (1 mL)] Route: IM; rs3 Site: left gluteus; 18:48 Drug: Tamsulosin 0.4 mg [tamsulosin 0.4 mg capsule (1 caps)] Route: PO; rs3 19:47 CANCELLED (Other Intervention Used): Robaxin 500 mg IVPB at 200 mL/hr once over 15 btw mins; dilute in 50mL of NS 20:18 Drug: Metoclopramide 20 mg [metoclopramide 5 mg/mL injection solution] Route: IV; Rate: dsf 80 mg/hr; Infused Over: 15 mins; Site: right hand; 20:43 Follow up: Pain 3/10 Adult; IV Status: Completed infusion; IV Intake: 50ml dsf 20:43 Follow up: Pain 3/10 Adult dsf 20:18 Drug: diphenhydrAMINE 50 mg [diphenhydramine 50 mg/mL injection solution (1 mL)] Route: dsf IVP; Site: right hand; Signatures: Dispatcher [employer] Tamela Del Rosario RN RN [facility] Siobhan Reynolds, Reg Reg gb Yamil Maddox PA PA btw Fuller, Desiree, RN RN dsf Cindy Negron, Reg Reg ks16 Lois Mistry RN rs3 The chart was reviewed and I authenticate all verbal orders and agree with the evaluation and treatment provided.Corrections: (The following items were deleted from the chart) 19:47 19:47 Robaxin 500 mg IVPB at 200 mL/hr once over 15 mins; dilute in 50mL of NS ordered. shameka myles Attachments: 18:52 [facility] Payment Agreement [email or web address] 03/31 11:48 T-Sheet-- Draft Copy Chart Complete MTDD
--- NOTE | 2016-04-01 22:12 | EDDOCDS ---
Physician Documentation [facility] Name: Bang Natarajan Age: 50 yrs Sex: Male : 1965 Arrival Date: 03/30/2016 Time: 17:09 Bed I2 / M2 Private MD: Garrett Diallo P. Disposition: 03/30/16 21:02 Discharged to Home/Self Care. Impression: Spondylolisthesis, lumbar region, Spondylolysis, lumbar region. - Condition is Stable. - Discharge Instructions: Back Pain, Adult. - Prescriptions for Medrol (Watson) 4 mg Oral Tablets, Dose Pack - take 1 Pack by ORAL route as directed - follow package instructions; 1 packet. Robaxin- 750 750 mg Oral Tablet - take 1 tablet by ORAL route every 6 hours As needed; 40 tablet. - Medication Reconciliation, Local Pharmacy Hours form. - Follow up: Garrett Diallo; When: 1 - 2 days; Reason: Further diagnostic work-up, Recheck today's complaints, Continuance of care. - Problem is an acute exacerbation. - Symptoms have improved. Historical: - Allergies: No known drug Allergies; - Home Meds: 1. omeprazole 20 mg Oral cpDR 1 cap once daily - PMHx: GERD; Cholecystitis; - PSHx: Hernia repair- Umbilical; - Social history: Smoking status: Patient states former smoker of tobacco. No barriers to communication noted, The patient speaks fluent Chinese. - Family history: Not pertinent. - : The pt / caregiver states he / she is not on anticoagulants. Home medication list is obtained from the patient, [employer] import data. - Exposure Risk Screening:: None identified. Vital Signs: 03/30 17:11 BP 158 / 87; Pulse 76; Resp 18; Temp 97.7(O); Pulse Ox 96% ; Weight 120.2 kg / 265 lbs; cmb Height 6 ft. 1 in. (185.42 cm); Pain 6/10; 20:43 Pain 3/10; dsf 20:43 Pain 3/10; dsf 21:07 BP 129 / 72; Pulse 81; Resp 20; Temp 97.0(O); Pulse Ox 96% on R/A; Pain 3/10; dsf 17:11 Body Mass Index 34.96 (120.20 kg, 185.42 cm) cmb MDM: 18:32 ketorolac 30 mg IM once ordered. btw 18:32 Tamsulosin Extended Release 24 hour Capsule 0.4 mg PO once ordered. btw 18:33 Amylase Ordered. EDMS 18:33 Basic Metabolic Profile Ordered. EDMS 18:33 CBC with Diff Ordered. EDMS 18:33 Lipase Ordered. EDMS 18:33 Liver Profile Ordered. EDMS 18:33 Urinalysis Ordered. EDMS 18:33 Urine Culture Ordered. EDMS 18:33 NOTHING BY MOUTH+DIET ordered. EDMS 18:50 Financial registration complete. [email or web address] 18:52 [facility] Payment Agreement was scanned into [employer] and attached to record. ks16 19:12 CBC with Diff Reviewed. btw 19:12 Urinalysis Reviewed. btw 19:38 Basic Metabolic Profile Reviewed. btw 19:38 Amylase Reviewed. btw 19:38 Lipase Reviewed. btw 19:38 Liver Profile Reviewed. btw 19:47 IV Saline Lock ordered. btw 19:47 Metoclopramide 20 mg IV at 80 mg/hr once over 15 mins ordered. btw 19:47 diphenhydrAMINE 50 mg IVP once ordered. btw 19:48 CT ABD & PELVIS: No Contrast Ordered. EDMS 20:56 CT ABD & PELVIS: No Contrast Reviewed. btw 03/31 11:48 T-Sheet-- Draft Copy was scanned into [employer] and attached to record. gb Administered Medications: 03/30 18:48 Drug: ketorolac 30 mg [ketorolac 30 mg/mL (1 mL) injection solution (1 mL)] Route: IM; rs3 Site: left gluteus; 18:48 Drug: Tamsulosin 0.4 mg [tamsulosin 0.4 mg capsule (1 caps)] Route: PO; rs3 19:47 CANCELLED (Other Intervention Used): Robaxin 500 mg IVPB at 200 mL/hr once over 15 btw mins; dilute in 50mL of NS 20:18 Drug: Metoclopramide 20 mg [metoclopramide 5 mg/mL injection solution] Route: IV; Rate: dsf 80 mg/hr; Infused Over: 15 mins; Site: right hand; 20:43 Follow up: Pain 3/10 Adult; IV Status: Completed infusion; IV Intake: 50ml dsf 20:43 Follow up: Pain 3/10 Adult dsf 20:18 Drug: diphenhydrAMINE 50 mg [diphenhydramine 50 mg/mL injection solution (1 mL)] Route: dsf IVP; Site: right hand; Signatures: Dispatcher [employer] Tamela Del Rosario RN RN [facility] Siobhan Reynolds, Reg Reg gb Yamil Maddox PA PA btw Fuller, Desiree, RN RN dsf Cindy Negron, Reg Reg ks16 Lois Mistry RN rs3 The chart was reviewed and I authenticate all verbal orders and agree with the evaluation and treatment provided.Corrections: (The following items were deleted from the chart) 19:47 19:47 Robaxin 500 mg IVPB at 200 mL/hr once over 15 mins; dilute in 50mL of NS ordered. shameka myles Attachments: 18:52 [facility] Payment Agreement [email or web address] 03/31 11:48 T-Sheet-- Draft Copy Chart Complete MTDD
== END 2016-03-30 21:11 | disposition home or self-care (01) ==
LOC: M ED 17:09
DX: R10.9 Unspecified abdominal pain (principal); K21.9 Gastro-esophageal reflux disease without esophagitis; Z79.899 Other long term (current) drug therapy
CPT/HCPCS: 74176; 80048; 80076; 81001; 82150; 83690; 85025; 87086; 96365; 96372; 96375; 99284; J1200; J1885; J2765

== ENCOUNTER → 2016-08-29 | Outpatient (REF) | payer OTHER ==
[2016-08-29 14:06] LABS: BASO % 0.7 % (0.0-1.0); EOS # 0.2 K/mm3 (0.0-0.50); EOS % 2.5 % (0.0-3.0); LARGE UNSTAINED CELL # 0.1 K/mm3 (0.0-0.4); LARGE UNSTAINED CELL % 1.9 % (0.0-4.0); LYMPH # 2.3 K/mm3 (1.5-4.5); MEAN CORPUSCULAR HEMOGLOBIN 30.7 pg (27.0-33.0); MEAN CORPUSCULAR HGB CONC 33.7 g/dl (32.0-36.5); MEAN CORPUSCULAR VOLUME 91.1 fl (80.0-96.0); MONO # 0.5 K/mm3 (0.0-0.8); MONO % 8.1 % (0.0-5.0); NEUTROPHILS # 3.3 K/mm3 (1.8-7.7); NEUTROPHILS % 52.9 % (36.0-66.0); PLATELET COUNT, AUTOMATED 217 k/mm3 (150-450); RED CELL DISTRIBUTION WIDTH 12.8 % (11.5-14.5); WHITE BLOOD COUNT 6.3 K/mm3 (4.0-10.0)
[2016-08-29 14:07] LABS: ANION GAP 5 MEQ/L (8-16); BLOOD UREA NITROGEN 13 MG/DL (7-18); CALCIUM LEVEL 8.9 MG/DL (8.5-10.1); CARBON DIOXIDE LEVEL 30 MEQ/L (21-32); CHLORIDE LEVEL 101 MEQ/L (98-107); CHOLESTEROL LEVEL 177 MG/DL (<200); CREATININE FOR GFR 0.91 MG/DL (0.70-1.30); GLOMERULAR FILTRATION RATE > 60.0 (>56); GLUCOSE, FASTING 105 MG/DL (70-105); POTASSIUM SERUM 3.9 MEQ/L (3.5-5.1); SODIUM LEVEL 136 MEQ/L (136-145); TRIGLYCERIDES LEVEL 156 MG/DL (<150)
== END ==
LOC: M LABWUC 13:31
PROVIDERS: ATTEND Physician Assistant Medical
DX: R42 Dizziness and giddiness (principal); R03.0 Elevated blood-pressure reading, without diagnosis of hypertension; R35.8 Other polyuria; Z83.3 Family history of diabetes mellitus; R63.1 Polydipsia

== ENCOUNTER 2017-06-11 15:28 | Emergency (ER) | payer BC, OTHER ==
[2017-06-11 16:16] LABS: BASO % 0.5 % (0.0-1.0); EOS # 0.1 10^3/uL (0.0-0.50); EOS % 1.3 % (0.0-3.0); HEMATOCRIT 41.9 % (42.0-52.0); HEMOGLOBIN 13.8 g/dl (14.0-18.0); IMMATURE GRANULOCYTE % 0.4 % (0-3.0); LYMPH # 2.1 10^3/uL (1.5-4.5); LYMPH % 25.1 % (24.0-44.0); MEAN CORPUSCULAR HEMOGLOBIN 29.6 pg (27.0-33.0); MEAN CORPUSCULAR HGB CONC 32.9 g/dl (32.0-36.5); MEAN CORPUSCULAR VOLUME 89.9 fl (80.0-96.0); MONO % 12.2 % (0.0-5.0); NEUTROPHILS # 4.9 10^3/uL (1.8-7.7); NEUTROPHILS % 60.5 % (36.0-66.0); PLATELET COUNT, AUTOMATED 238 10^3/uL (150-450); RED BLOOD COUNT 4.66 10^6/uL (4.30-6.10); RED CELL DISTRIBUTION WIDTH 12.6 % (11.5-14.5); WHITE BLOOD COUNT 8.2 10^3/uL (4.0-10.0)
[2017-06-11] MEDS: ASPIRIN 81 MG CHEW TABLET PO (16:24)
[2017-06-11 16:25] LABS: INR 0.89; PROTHROMBIN TIME 12.1 SECONDS (12.4-14.5)
[2017-06-11 16:26] LABS: PARTIAL THROMBOPLASTIN TIME 25.5 SECONDS (26.8-37.9)
[2017-06-11] MEDS: NITROGLYCERIN 0.4 MG SUBL TABLET SL (16:26)
[2017-06-11 16:35] LABS: ALBUMIN 3.9 GM/DL (3.2-5.2); ALBUMIN/GLOBULIN RATIO 1.08 (1.00-1.93); ALKALINE PHOSPHATASE 52 U/L (45-117); ALT/SGPT 50 U/L (12-78); ANION GAP 9 MEQ/L (8-16); AST/SGOT 23 U/L (7-37); BILIRUBIN,DIRECT < 0.1 MG/DL (0.0-0.2); BILIRUBIN,TOTAL 0.3 MG/DL (0.2-1.0); BLOOD UREA NITROGEN 17 MG/DL (7-18); CARBON DIOXIDE LEVEL 25 MEQ/L (21-32); CHLORIDE LEVEL 107 MEQ/L (98-107); CPK CREATINE PHOSPHOKINASE 255 U/L (39-308); CREATININE FOR GFR 0.88 MG/DL (0.70-1.30); GLOMERULAR FILTRATION RATE > 60.0 (>56); GLUCOSE, FASTING 88 MG/DL (70-100); LIPASE 163 U/L (73-393); SODIUM LEVEL 141 MEQ/L (136-145); TOTAL PROTEIN 7.5 GM/DL (6.4-8.2); TROPONIN I < 0.02 NG/ML (< 0.10)
[2017-06-11] MEDS: NS 500 ML IV (16:36)
[2017-06-11 16:41] LABS: CK-MB VALUE MASS 2.5 NG/ML (<3.6); MB/CK RELATIVE INDEX 0.98 (< OR =4); NT-PRO BNP 28 PG/ML (<125); THYROID STIMULATING HORMONE 0.986 uIU/ML (0.358-3.740)
[2017-06-11 22:52] LABS: CK-MB VALUE MASS 2.2 NG/ML (<3.6); CPK CREATINE PHOSPHOKINASE 192 U/L (39-308); MB/CK RELATIVE INDEX 1.14 (< OR =4); TROPONIN I < 0.02 NG/ML (< 0.10)
== END 2017-06-11 23:37 | disposition home or self-care (01) ==
LOC: M ED 15:28
DX: R07.89 Other chest pain (principal); R00.1 Bradycardia, unspecified; R06.02 Shortness of breath; K21.9 Gastro-esophageal reflux disease without esophagitis; E66.9 Obesity, unspecified; Z87.828 Personal history of other (healed) physical injury and trauma; Z87.19 Personal history of other diseases of the digestive system; Z87.891 Personal history of nicotine dependence
CPT/HCPCS: 71045

== ENCOUNTER 2017-11-19 19:13 | Emergency (ER) | payer BC, OTHER ==
[2017-11-19] MEDS: PANTOPRAZOLE 40MG INJ (PROTONIX) (C9113) IV (20:06)
[2017-11-19] MEDS: MORPHINE 2 MG/ML 1ML SYRINGE (J2270) IV (20:07)
[2017-11-19] MEDS: ASPIRIN 325 MG TAB PO (20:07)
[2017-11-19 20:16] LABS: BASO # 0.1 10^3/uL (0.0-0.2); BASO % 0.8 % (0.0-1.0); EOS # 0.1 10^3/uL (0.0-0.50); EOS % 1.6 % (0.0-3.0); HEMATOCRIT 40.7 % (42.0-52.0); HEMOGLOBIN 13.5 g/dl (13.5-17.5); IMMATURE GRANULOCYTE % 0.4 % (0-3.0); LYMPH # 2.2 10^3/uL (1.5-4.5); LYMPH % 29.3 % (24.0-44.0); MEAN CORPUSCULAR HEMOGLOBIN 29.9 pg (27.0-33.0); MEAN CORPUSCULAR HGB CONC 33.2 g/dl (32.0-36.5); MEAN CORPUSCULAR VOLUME 90.2 fl (80.0-96.0); MONO # 0.7 10^3/uL (0.0-0.8); MONO % 9.8 % (0.0-5.0); NEUTROPHILS # 4.3 10^3/uL (1.8-7.7); NEUTROPHILS % 58.1 % (36.0-66.0); PLATELET COUNT, AUTOMATED 227 10^3/uL (150-450); RED BLOOD COUNT 4.51 10^6/uL (4.30-6.10); RED CELL DISTRIBUTION WIDTH 12.8 % (11.5-14.5); WHITE BLOOD COUNT 7.4 10^3/uL (4.0-10.0)
[2017-11-19 20:26] LABS: INR 0.99; PROTHROMBIN TIME 13.2 SECONDS (12.1-14.4)
[2017-11-19 20:27] LABS: PARTIAL THROMBOPLASTIN TIME 25.1 SECONDS (25.4-37.6)
[2017-11-19 20:40] LABS: ALBUMIN 3.7 GM/DL (3.2-5.2); ALBUMIN/GLOBULIN RATIO 1.06 (1.00-1.93); ALKALINE PHOSPHATASE 52 U/L (45-117); ALT/SGPT 52 U/L (12-78); ANION GAP 9 MEQ/L (8-16); AST/SGOT 26 U/L (7-37); BILIRUBIN,DIRECT < 0.1 MG/DL (0.0-0.2); BILIRUBIN,TOTAL 0.3 MG/DL (0.2-1.0); BLOOD UREA NITROGEN 13 MG/DL (7-18); CARBON DIOXIDE LEVEL 25 MEQ/L (21-32); CHLORIDE LEVEL 108 MEQ/L (98-107); CPK CREATINE PHOSPHOKINASE 178 U/L (39-308); CREATININE FOR GFR 0.95 MG/DL (0.70-1.30); GLOMERULAR FILTRATION RATE > 60.0 (>56); GLUCOSE, FASTING 126 MG/DL (70-100); LIPASE 181 U/L (73-393); MB/CK RELATIVE INDEX 1.68 (< OR =4); POTASSIUM SERUM 3.7 MEQ/L (3.5-5.1); SODIUM LEVEL 142 MEQ/L (136-145); TOTAL PROTEIN 7.2 GM/DL (6.4-8.2); TROPONIN I < 0.02 NG/ML (< 0.10)
[2017-11-19] MEDS: LORazepam 2 MG/ML VIAL (J2060) IV (20:59)
[2017-11-19] MEDS ORDERED: ISOVUE-370 76% 100ML VIAL (Q9967) As Ordered (21:30)
[2017-11-20 01:36] LABS: CK-MB VALUE MASS 2.3 NG/ML (<3.6); CPK CREATINE PHOSPHOKINASE 147 U/L (39-308); MB/CK RELATIVE INDEX 1.56 (< OR =4); TROPONIN I < 0.02 NG/ML (< 0.10)
== END 2017-11-20 03:16 | disposition home or self-care (01) ==
LOC: M ED 11-20 03:16
DX: R07.89 Other chest pain (principal); F41.1 Generalized anxiety disorder; R20.2 Paresthesia of skin; K21.9 Gastro-esophageal reflux disease without esophagitis; Z87.891 Personal history of nicotine dependence; Z79.899 Other long term (current) drug therapy
CPT/HCPCS: C9113

== ENCOUNTER 2018-10-22 20:03 | Emergency (ER) | payer BC, OTHER ==
[~2018-10-22] VITALS: Ht 185.4 cm; Wt 122.7 kg
[~2018-10-22 20:03] MED LIST: OMEP40CA97 PO
[2018-10-22] MEDS ORDERED: DIAZ2TAB (20:17)
[2018-10-22] MEDS ORDERED: NS 1,000 ML IV SCH (20:32)
[2018-10-22] MEDS ORDERED: ASPIRIN 81 MG CHEW TABLET PO ONE (20:45)
[2018-10-22 21:27] LABS: BASO % 0.6 % (0.0-1.0); EOS # 0.1 10^3/uL (0.0-0.50); EOS % 1.9 % (0.0-3.0); HEMATOCRIT 39.4 % (42.0-52.0); HEMOGLOBIN 13.3 g/dl (13.5-17.5); LYMPH % 29.4 % (24.0-44.0); MEAN CORPUSCULAR HGB CONC 33.8 g/dl (32.0-36.5); MEAN CORPUSCULAR VOLUME 91.8 fl (80.0-96.0); MONO # 0.8 10^3/uL (0.0-0.8); MONO % 11.7 % (0.0-5.0); NEUTROPHILS # 3.9 10^3/uL (1.8-7.7); NEUTROPHILS % 56.1 % (36.0-66.0); PLATELET COUNT, AUTOMATED 210 10^3/uL (150-450); RED BLOOD COUNT 4.29 10^6/uL (4.30-6.10); WHITE BLOOD COUNT 6.9 10^3/uL (4.0-10.0)
[2018-10-22 21:38] LABS: INR 1.06; PROTHROMBIN TIME 13.5 SECONDS (11.8-14.0)
[2018-10-22 21:40] LABS: D-DIMER QUANT 376.67 ng/ml (<500)
[2018-10-22 22:03] LABS: ALBUMIN 3.7 GM/DL (3.2-5.2); ALT/SGPT 53 U/L (12-78); BILIRUBIN,DIRECT < 0.1 MG/DL (0.0-0.2); BILIRUBIN,TOTAL 0.3 MG/DL (0.2-1.0); BLOOD UREA NITROGEN 16 MG/DL (7-18); CALCIUM LEVEL 9.1 MG/DL (8.5-10.1); CARBON DIOXIDE LEVEL 29 MEQ/L (21-32); CHLORIDE LEVEL 110 MEQ/L (98-107); CK-MB VALUE MASS 3.9 NG/ML (<3.6); CPK CREATINE PHOSPHOKINASE 274 U/L (39-308); CREATININE FOR GFR 0.91 MG/DL (0.70-1.30); FREE T4 0.85 NG/DL (0.76-1.46); GLOMERULAR FILTRATION RATE > 60.0 (>56); GLUCOSE, FASTING 93 MG/DL (70-100); LIPASE 128 U/L (73-393); MB/CK RELATIVE INDEX 1.42 (< OR =4); POTASSIUM SERUM 4.7 MEQ/L (3.5-5.1); SODIUM LEVEL 143 MEQ/L (136-145); TROPONIN I < 0.02 NG/ML (< 0.10)
[2018-10-22] MEDS ORDERED: ASPI81TA85 PO (22:14)
[2018-10-22 22:36] VITALS: BP 134/68
--- NOTE | 2018-10-23 01:53 | REP ---
Clinical: Acute chest pain . Comparison: 06/11/2017 . Technique: PA and lateral. Findings: The mediastinum and cardiac silhouette are normal. The lung polanco are clear and without acute consolidation, effusion, or pneumothorax. The skeletal structures are intact and normal. Foreign body material overlies the left shoulder and remain stable. Impression: 1. No acute cardiopulmonary process. Electronically Signed by Boston Beavers MD 10/23/2018 01:44 A
--- NOTE | 2018-10-23 05:44 | ECGEPIP ---
[facility] - ED Test Date: 2018-10-22 Pat Name: DAYNE ENRIQUEZ Department: Room: - Gender: Male Client Support Consultant: melecio : 1965 Requested By: BRANNON BARR Order Number: [id number] Reading MD: Janes Zambrano Measurements Intervals [place] Rate: 73 P: 23 [place]: 186 QRS: -15 QRSD: 93 T: 29 QT: 353 QTc: 390 Interpretive Statements SINUS RHYTHM VOLTAGE CRITERIA FOR LVH NONSPECIFIC T-WAVE ABNORMALITY SIMILAR TO 11/20/17 Electronically Signed on 10-23-2018 5:44:26 EDT by Janes Zambrano
== END 2018-10-22 23:00 | disposition home or self-care (01) ==
LOC: M ED 20:03
DX: R07.89 Other chest pain (principal); F41.9 Anxiety disorder, unspecified; K21.9 Gastro-esophageal reflux disease without esophagitis; Z79.899 Other long term (current) drug therapy; Z79.82 Long term (current) use of aspirin; Z87.891 Personal history of nicotine dependence

== ENCOUNTER 2019-07-08 13:14 | Observation (INO) | payer BC, OTHER ==
[~2019-07-08] VITALS: Ht 182.9 cm; Wt 123.5 kg
[~2019-07-08 13:14] MED LIST changes: +ASPI81TA85 PO; +DIAZ2TAB
[2019-07-08] MEDS ORDERED: ISOVUE-370 76% 100ML VIAL As Ordered ONE (13:25)
[2019-07-08 13:48] LABS: BASO % 0.6 % (0.0-1.0); EOS # 0.1 10^3/uL (0.0-0.5); EOS % 2.2 % (0.0-3.0); HEMATOCRIT 42.9 % (42.0-52.0); LYMPH # 2.1 10^3/uL (1.5-5.0); LYMPH % 32.8 % (24.0-44.0); MEAN CORPUSCULAR HEMOGLOBIN 29.4 pg (27.0-33.0); MEAN CORPUSCULAR HGB CONC 32.6 g/dl (32.0-36.5); MEAN CORPUSCULAR VOLUME 89.9 fl (80.0-96.0); MONO # 0.8 10^3/uL (0.0-0.8); MONO % 11.8 % (0.0-5.0); NEUTROPHILS # 3.3 10^3/uL (1.5-8.5); NEUTROPHILS % 52.1 % (36.0-66.0); PLATELET COUNT, AUTOMATED 259 10^3/uL (150-450); RED BLOOD COUNT 4.77 10^6/uL (4.30-6.10); WHITE BLOOD COUNT 6.4 10^3/uL (4.0-10.0)
[2019-07-08 13:54] LABS: PROTHROMBIN TIME 12.9 SECONDS (11.8-14.0)
[2019-07-08 13:55] LABS: PARTIAL THROMBOPLASTIN TIME 26.8 SECONDS (25.0-38.4)
[2019-07-08] MEDS ORDERED: FAMO40TA3 PO (14:00)
[2019-07-08 14:15] LABS: CPK CREATINE PHOSPHOKINASE 196 U/L (39-308); MB/CK RELATIVE INDEX 1.53 (< OR =4); TROPONIN I < 0.02 NG/ML (< 0.10)
--- NOTE | 2019-07-08 14:44 | REP ---
REASON: Stroke-like symptoms. Single frontal view is obtained. FINDINGS: The superior mediastinal structures are midline. The cardiac silhouette is unremarkable in size, shape, and position. The diaphragmatic surfaces of the lungs are regular, and the costophrenic angles are clear. The pulmonary polanco are clear. The imaged osseous structures are intact. IMPRESSION: There is no acute cardiopulmonary disease. There appears to be artifact from metallic radiodensities in the left shoulder, unchanged from prior chest radiograph, 10/22/2018. Electronically Signed by Sumeet Hsieh DO 07/08/2019 04:50 P
--- NOTE | 2019-07-08 14:44 | REP ---
REASON: Stroke-like symptoms. TECHNIQUE: 4.5 mm contiguous transaxial sections were obtained from the skull base to the cerebral convexities with thin cuts through the posterior fossa without the administration of intravenous contrast. FINDINGS: The ventricles and sulci are consistent with the patient's age. There are no extra-axial fluid collections. There is no mass effect. The deep cerebral white matter is consistent with the patient's age. The orbital and petrous structures , cerebellopontine angles, and posterior fossa are unremarkable. The sella turcica, cavernous, and paracavernous structures are essentially unremarkable. The visualized portions of the paranasal sinuses and mastoid air cells are clear. Images of the skull base show no gross abnormality. IMPRESSION: Essentially unremarkable CT examination of the brain. There has been no significant change compared to the prior exam of 03/29/2009. Electronically Signed by Sumeet Hsieh DO 07/08/2019 04:50 P
--- NOTE | 2019-07-08 14:49 | REP ---
CT ANGIOGRAM OF THE NECK: CT angiogram of the neck is performed following the intravenous administration of 100 mL of Isovue 370. Sagittal, coronal, and 3D MIP reconstruction images are performed. Both common carotid and internal carotid arteries are patent with no significant stenosis. There is no arterial occlusion. There is some mild plaquing of the carotid bulbs bilaterally. Vertebral arteries are patent. There is a small right vertebral with a dominant left vertebral artery. Soft tissue structures appear unremarkable. There are mild degenerative changes of the cervical spine. IMPRESSION: Very mild plaquing of the carotid bulbs with no evidence of significant arterial stenosis. No arterial occlusion of the common carotid or internal carotid arteries bilaterally. Electronically Signed by Ba Mooney MD 07/08/2019 05:02 P
--- NOTE | 2019-07-08 14:51 | REP ---
CT ANGIOGRAM OF THE BRAIN: CT angiogram of the brain is performed following the intravenous administration of 100 mL of Isovue-370. Sagittal, coronal, and 3D MIP reconstruction images are performed. There is dominant left vertebral artery with a thin right vertebral artery. Basilar artery demonstrates no stenosis. Posterior communicating arteries are patent. Posterior cerebral arteries are symmetrical in appearance and patent. Intracranial carotid arteries are patent. Anterior communicating arteries are patent. The anterior and middle cerebral arteries are symmetrical and patent with no evidence for significant arterial stenosis. I see no aneurysm or AVM. IMPRESSION: Essentially negative CT angiogram of the brain, as discussed above. Electronically Signed by Ba Mooney MD 07/08/2019 05:02 P
[2019-07-08] MEDS ORDERED: POTASSIUM CHLORIDE 10 MEQ SR TABLET PO ONE (16:00)
[2019-07-08 16:09] LABS: MAGNESIUM LEVEL 2.1 MG/DL (1.8-2.4); PHOSPHORUS LEVEL 3.5 MG/DL (2.5-4.9)
--- NOTE | 2019-07-08 16:09 | HPEPDOC ---
General Date of Admission 07/08/19 Date of Service: Jul 08, 2019 Chief Complaint The patient is a 54-year-old male admitted with a reason for visit of Neuro Sx. Source: Patient Exam Limitations: No limitations Timing/Duration: 4-6 hours Severity: Mild History of Present Illness Patient is 54 years old male with past medical history of acid reflux presented to the hospital with intermittent face, left arm, left hand numbness. Patient stated that a few hours ago he started feeling numbness in his lips which subsequently spread to his face in both sides. Also patient noticed numbness in his left arm and hand. Patient stated that his numbness sensation was intermittent lasting about 10-15 minutes and then subsided. Patient denied any focal weakness. Patient stated that he has never had this symptoms before. In ER imaging study CT head, neck CTA, CT brain were done and it were negative for bleeding or artery stenosis. Also patient was found to have low ionized calcium level of 4.4 Home Medications Scheduled Famotidine (Famotidine) 40 Mg Tablet, 40 MG PO QPM, (Reported) Omeprazole (Omeprazole) 40 Mg Cap, 40 MG PO DAILY, (Reported) Allergies Coded Allergies: No Known Allergies (Verified , 11/14/07) Past Medical History Medical History GERD Family History His father from cancer, mother has a breast cancer Social History * Smoker: Denies Alcohol: Denies Drugs: denies A-FIB/CHADSVASC A-FIB History Current/History of A-Fib/PAF?: No Current PO Anticoag Therapy: No Review of Systems Constitutional: Denies: Chills, Fever Eyes: Denies: Pain, Vision change ENT: Denies: Head Aches Skin: Denies: Rash, Lesions Pulmonary: Denies: Dyspnea, Cough Cardiovascular: Denies: Chest Pain, Palpitations Gastrointestinal: Denies: Nausea, Vomiting Genitourinary: Denies: Dysuria Hematologic: Denies: Bruising Endocrine: Denies: Polydipsia, Polyphagia Musculoskeletal: Denies: Neck Pain Neurological: Reports: Numbness; Denies: Weakness, Change in speech, Confusion Psych: Reports: Mood Normal Physical Examination General Exam: Positive: Alert, Cooperative Eye Exam: Positive: PERRLA, Conjunctiva & lids normal ENT Exam: Positive: Atraumatic Neck Exam: Positive: Supple; Negative: JVD Heart Exam: Positive: Rate Normal Telemetry: Positive: No significant arrhythmia Abdomen Exam: Positive: Normal bowel sounds Extremity Exam: Negative: Clubbing, Cyanosis Skin Exam: Positive: Nl turgor and temperature Neuro Exam: Positive: Normal Gait, Normal Speech, Strength at 5/5 X4 ext, Normal Tone, Sensation Intact, Cranial Nerves 3-12 NL, Reflexes 2+ Psych Exam: Positive: Mental status NL Vital Signs Vital Signs Date Time Temp Pulse Resp B/P (MAP) Pulse Ox O2 Delivery O2 Flow Rate FiO2 07/08/19 14:04 07/08/19 13:14 97.6 83 18 97 Room Air Laboratory Data Labs 24H Laboratory Tests 2 07/08/19 13:28: Immature Granulocyte % (Auto) 0.5, Neutrophils (%) (Auto) 52.1, Lymphocytes (%) (Auto) 32.8, Monocytes (%) (Auto) 11.8H, Eosinophils (%) (Auto) 2.2, Basophils (%) (Auto) 0.6, Neutrophils # (Auto) 3.3, Lymphocytes # (Auto) 2.1, Monocytes # (Auto) 0.8, Eosinophils # (Auto) 0.1, Basophils # (Auto) 0.0, Nucleated Red Blood Cells % (auto) 0.0, Prothrombin Time 12.9, Prothromb Time International Ratio 1.00, Activated Partial Thromboplast Time 26.8, Total Creatine Kinase 196, Creatine Kinase MB 3.0, Creatine Kinase MB Relative Index 1.53, Troponin I < 0.02 07/08/19 13:31: POC Glucose (Misc Panel) 108H, POC Sodium (Misc Panel) 139, POC Potassium (Misc Panel) 3.3L, POC Chloride (Misc Panel) 99, POC Total CO2 (Misc Panel) 27.0, POC Blood Urea Nitrogen (Misc Panel 14, POC Ionized Calcium (Misc Panel) 4.4L, POC Creatinine (Misc Panel) 0.8, POC Hematocrit (Misc Panel) 43.0 CBC/BMP Laboratory Tests 07/08/19 13:28 Assessment/Plan Patient is 54 years old male with past medical history of acid reflux presented to the hospital with intermittent face, left arm, left hand numbness. Patient stated that a few hours ago he started feeling numbness in his lips which subsequently spread to his face in both sides. Also patient noticed numbness in his left arm and hand. Patient stated that his numbness sensation was intermittent lasting about 10-15 minutes and then subsided. Patient denied any focal weakness. Patient stated that he has never had this symptoms before. In ER imaging study CT head, neck CTA, CT brain were done and it were negative for bl eeding or artery stenosis. Also patient was found to have low ionized calcium level of 4.4 Problems (1) Numbness and tingling Status: Acute Problem Text: Most likely secondary to hypocalcemia Well-known effect with perioral numbness, patient complains of the numbness of his lips and face I will check PTH, vitamin D, recheck calcium, magnesium, phosphorus I will give him calcium gluconate IV We will stop Famotidine (2) TIA (transient ischemic attack) Status: Acute Problem Text: Unlikely given the presentation as bilateral face numbness, or oral numbness. CT of the brain, CTA brain, CTA neck negative Neurology team recommended proceed with MRI brain Plan / VTE VTE Prophylaxis Ordered?: Yes VERO MENDEZ DO Jul 08, 2019 16:09
[2019-07-08] MEDS ORDERED: CALCIUM GLUCONATE 1,000 MG in D5W MINI-BAG PLUS 100 ML IV ONE (16:15)
[2019-07-08 16:21] LABS: PTH INTACT 88.1 PG/ML (18.5-88.0); TOTAL 25(OH) VITAMIN D 14.5 NG/ML (30.0-100.0)
[2019-07-08 16:28] LABS: CALCIUM LEVEL 9.5 MG/DL (8.5-10.1)
[2019-07-08 17:00] VITALS: BP 155/82
--- NOTE | 2019-07-08 19:25 | REPVR ---
PROCEDURE INFORMATION: Exam: MR Head Without Contrast Exam date and time: 07/08/2019 7:01 PM Age: 54 years old Clinical indication: Numbness / parasthesia; Left; Additional info: TIA TECHNIQUE: Imaging protocol: MR of the head without contrast. COMPARISON: CT Head without contrast 07/08/2019 1:18 PM FINDINGS: Brain: No acute infarct identified on the diffusion-weighted imaging. No parenchymal hemorrhage. The T2 weighted imaging demonstrates a few scattered punctate foci of increased signal intensity in the deep and subcortical white matter most likely representing trace chronic small vessel ischemic change. Ventricles: Normal. No ventriculomegaly. Bones/joints: Unremarkable. Soft tissues: Unremarkable. Sinuses: Trace bilateral ethmoid sinus mucosal thickening. Tiny retention cyst or polyp in the left maxillary sinus. No air-fluid levels. Mastoid air cells: Normal as visualized. No mastoid effusion. Orbits: Unremarkable. IMPRESSION: No evidence of acute infarct. Electronically signed by: Natasha Key On 07/08/2019 19:25:21 PM
[2019-07-08] MEDS: HEPARIN SOD (PORCINE) 5000UNITS/ML VIAL (J1644 PER 1000UNITS) SC SCH (20:04)
[2019-07-08 22:00] VITALS: BP 144/82
--- NOTE | 2019-07-09 03:24 | ECGEPIP ---
[facility] - ED Test Date: 2019-07-08 Pat Name: DAYNE ENRIQUEZ Department: Room: - Gender: Male Records Analyst: ej gonzalez : 1965 Requested By: Sonia Lizama Order Number: [id number] Reading MD: Darryn Guerrero Measurements Intervals [place] Rate: 75 P: 15 MD: 188 QRS: -16 QRSD: 100 T: 11 QT: 382 QTc: 427 Interpretive Statements SINUS RHYTHM Left ventricular hypertrophy by aVL criteria Nonspecific T wave abnormality Similar to tracing done 10-22-18 Electronically Signed on 07-09-2019 3:24:14 EDT by Darryn Guerrero
[2019-07-09 06:00] VITALS: BP 116/74
[2019-07-09 06:37] LABS: HEMATOCRIT 40.4 % (42.0-52.0); HEMOGLOBIN 13.1 g/dl (13.5-17.5); MEAN CORPUSCULAR HEMOGLOBIN 29.5 pg (27.0-33.0); MEAN CORPUSCULAR HGB CONC 32.4 g/dl (32.0-36.5); PLATELET COUNT, AUTOMATED 247 10^3/uL (150-450); RED BLOOD COUNT 4.44 10^6/uL (4.30-6.10)
[2019-07-09 07:26] LABS: ALBUMIN 3.6 GM/DL (3.2-5.2); ALT/SGPT 82 U/L (12-78); BILIRUBIN,TOTAL 0.6 MG/DL (0.2-1.0); BLOOD UREA NITROGEN 11 MG/DL (7-18); CALCIUM LEVEL 9.4 MG/DL (8.5-10.1); CARBON DIOXIDE LEVEL 30 MEQ/L (21-32); CHLORIDE LEVEL 104 MEQ/L (98-107); GLOMERULAR FILTRATION RATE > 60.0 (>56); GLUCOSE, FASTING 98 MG/DL (70-100); MAGNESIUM LEVEL 2.5 MG/DL (1.8-2.4); POTASSIUM SERUM 4.1 MEQ/L (3.5-5.1); SODIUM LEVEL 139 MEQ/L (136-145); TOTAL PROTEIN 7.1 GM/DL (6.4-8.2)
[2019-07-09] MEDS: HEPARIN SOD (PORCINE) 5000UNITS/ML VIAL (J1644 PER 1000UNITS) SC SCH (07:54)
[2019-07-09] MEDS ORDERED: OMEPRAZOLE 20 MG CAP PO SCH (09:00)
[2019-07-09] MEDS ORDERED: VITAD1000T PO (12:09)
--- NOTE | 2019-07-09 16:36 | DS.PDOC ---
Discharge Summary General Date of Admission Jul 08, 2019 at 13:15 Date of Discharge 07/09/19 Discharge Summary PROCEDURES PERFORMED DURING STAY: [None]. ADMITTING DIAGNOSES: Numbness and tingling TIA (transient ischemic attack) DISCHARGE DIAGNOSES: Numbness and tingling TIA (transient ischemic attack) COMPLICATIONS/CHIEF COMPLAINT: TIA. HISTORY OF PRESENT ILLNESS: Patient is 54 years old male with past medical history of acid reflux presented to the hospital with intermittent face, left arm, left hand numbness. Patient stated that a few hours ago he started feeling numbness in his lips which subsequently spread to his face in both sides. Also patient noticed numbness in his left arm and hand. Patient stated that his numbness sensation was intermittent lasting about 10-15 minutes and then sub sided. Patient denied any focal weakness. Patient stated that he has never had this symptoms before. In ER imaging study CT head, neck CTA, CT brain were done and it were negative for bleeding or artery stenosis. Also patient was found to have low ionized calcium level of 4.4, and low vitamin D level with elevated PTH HOSPITAL COURSE: During hospital stay following issue addressed (1) Numbness and tingling Most likely secondary to hypocalcemia Well-known effect with perioral numbness, patient complains of the numbness of his lips and face PTH 88.1, vitamin D 14.5 Patient received calcium gluconate IV stopped Famotidine (2) TIA (transient ischemic attack) Status: Acute Problem Text: Unlikely given the presentation as bilateral face numbness, or oral numbness. CT of the brain, CTA brain, CTA neck negative Neurology team recommended proceed with MRI brain, which came back negative DISCHARGE MEDICATIONS: Please see below. ALLERGIES: Please see below. PHYSICAL EXAMINATION ON DISCHARGE: VITAL SIGNS: Please see below. PHYSICAL EXAMINATION ON DISCHARGE: VITAL SIGNS: Please see below. GENERAL: awake, alert, NAD HEENT: NCAT, anicteric sclera, MARCELLA NECK: supple, no JVD CARDIOVASCULAR EXAMINATION: NS1S2, regular rate/rhythm RESPIRATORY EXAMINATION: CTA b/l, no wheezes/rales/rhonchi ABDOMINAL EXAMINATION: positive bowel sounds x 4, NT EXTREMITIES: no cyanosis, clubbing, edema SKIN: warm, no rashes. NEUROLOGICAL EXAMINATION: AAO x 3, no motor/sensory deficits PSYCHIATRIC EXAMINATION: calm, normal affect LABORATORY DATA: Please see below. IMAGING: PROCEDURE INFORMATION: Exam: MR Head Without Contrast Exam date and time: 07/08/2019 7:01 PM Age: 54 years old Clinical indication: Numbness / parasthesia; Left; Additional info: TIA TECHNIQUE: Imaging protocol: MR of the head without contrast. COMPARISON: CT Head without contrast 07/08/2019 1:18 PM FINDINGS: Brain: No acute infarct identified on the diffusion-weighted imaging. No parenchymal hemorrhage. The T2 weighted imaging demonstrates a few scattered punctate foci of increased signal intensity in the deep and subcortical white matter most likely representing trace chronic small vessel ischemic change. Ventricles: Normal. No ventriculomegaly. Bones/joints: Unremarkable. Soft tissues: Unremarkable. Sinuses: Trace bilateral ethmoid sinus mucosal thickening. Tiny retention cyst or polyp in the left maxillary sinus. No air-fluid levels. Mastoid air cells: Normal as visualized. No mastoid effusion. Orbits: Unremarkable. IMPRESSION: No evidence of acute infarct. PROGNOSIS: Good ACTIVITY: [As tolerated]. DIET: Regular DISPOSITION: 01 Home, Self-Care. DISCHARGE INSTRUCTIONS: Take vitamin D ITEMS TO FOLLOWUP ON ON OUTPATIENT: Follow-up with PCP and neurologist DISCHARGE CONDITION: [Stable]. TIME SPENT ON DISCHARGE: Greater than 20 minutes. Vital Signs/I&Os Vital Signs Date Time Temp Pulse Resp B/P (MAP) Pulse Ox O2 Delivery O2 Flow Rate FiO2 07/09/19 06:00 98.0 66 17 116/74 (88) 94 Room Air I&O- Last 24 Hours up to 6 AM 07/09/19 06:00 Intake Total 500 ml Output Total 650 ml Balance -150 ml Laboratory Data Labs 24H Laboratory Tests 2 07/09/19 06:10: Nucleated Red Blood Cells % (auto) 0.0, Anion Gap 5L, Glomerular Filtration Rate > 60.0, Calcium Level 9.4, Magnesium Level 2.5H, Total Bilirubin 0.6, Aspartate Amino Transf (AST/SGOT) 52H, Alanine Aminotransferase (ALT/SGPT) 82H, Alkaline Phosphatase 46, Total Protein 7.1, Albumin 3.6, Albumin/Globulin Ratio 1.03 CBC/BMP Laboratory Tests 07/09/19 06:10 Discharge Medications Scheduled Cholecalciferol (Vitamin D3) (Vitamin D3) 1,000 Unit Tablet, 1,000 UNITS PO DAILY Omeprazole (Omeprazole) 40 Mg Cap, 40 MG PO DAILY, (Reported) Allergies Coded Allergies: No Known Allergies (Verified , 11/14/07) VERO MENDEZ DO Jul 09, 2019 16:36
== END 2019-07-09 13:45 | disposition home or self-care (01) ==
LOC: M ED 13:14 → M ED INP 13:15 → ENRESERV 16:17 → M MSPAV 17:09
PROVIDERS: ADMIT Internal Medicine; ATTEND Internal Medicine
DX: G45.9 Transient cerebral ischemic attack, unspecified (principal); E83.51 Hypocalcemia; R29.700 NIHSS score 0; R20.0 Anesthesia of skin; K21.9 Gastro-esophageal reflux disease without esophagitis; Z79.899 Other long term (current) drug therapy
CPT/HCPCS: 36415; 70450; 70496; 70498; 70551; 71045; 80053; 82306; 82550; 82553; 83735; 83970; 84100; 84484; 85025; 85027; 85610; 85730; 86850; 86900; 86901; 93005; 93041; 94760; 96372; 99285; J0610; J1644; Q9967

== ENCOUNTER → 2019-08-20 | Outpatient (CLI) | payer BC, OTHER ==
[~2019-08-20] MED LIST changes: +FAMO40TA3 PO; +ISOVUE-370 76% 100ML VIAL As Ordered ONE; +VITAD1000T PO
--- NOTE | 2019-08-22 08:04 | REP ---
Clinical: Suspicion for abdominal aortic aneurysm by recent ultrasound. Technique: Axial angiographic images obtained from the lung bases to the pubic symphysis with coronal and sagittal re-formations, multiplanar MIP reconstructions and post process 3-D volume rendered aortic angiogram. 100 ml Isovue 370 intravenous contrast material administered without complication. Findings: The distal descending thoracic aorta and abdominal aorta through the bifurcation to common iliac arteries is normal in caliber and there is no evidence for aneurysmal dilatation, periaortic inflammatory stranding or dissection. The abdominal aorta measures up to 2.8 cm maximal diameter measured just above the level of the celiac axis and tapers to 2.2 cm maximal diameter before the bifurcation to common iliac arteries. Very minimal scattered atheromatous changes are noted. The celiac axis, superior mesenteric artery, bilateral renal arteries, inferior mesenteric artery and common iliac arteries are patent and without evidence for stenosis or occlusion. Liver, spleen, pancreas, bilateral adrenal glands and kidneys are normal. Cholelithiasis noted without acute cholecystitis. Visualized enteric system is without obstruction or acute inflammatory process. Scattered colonic diverticula noted without acute diverticulitis. Normal terminal ileum and appendix are identified in the visualized right lower quadrant. No ascites. No free air. No adenopathy. Lung bases are clear. Impression: 1. Essentially normal appearance to the abdominal aorta and branch vessels without evidence for aneurysm. Minimal atheromatous changes are identified. 2. Cholelithiasis. 3. Scattered colonic diverticula without acute diverticulitis. Electronically Signed by Boston Beavers MD 08/22/2019 07:56 A
== END ==
LOC: M RAD 10:19
PROVIDERS: ATTEND Physician Assistant Medical
DX: R10.11 Right upper quadrant pain (principal)
CPT/HCPCS: 74175; Q9967

== ENCOUNTER → 2020-02-17 | Outpatient (CLI) | payer BC, OTHER ==
[~2020-02-17] MED LIST changes: -ASPI81TA85 PO; +ASPI81TA86 PO; +D31000TA2 PO; -ISOVUE-370 76% 100ML VIAL As Ordered ONE; -VITAD1000T PO
== END ==
LOC: M LABSMTC 13:30
PROVIDERS: ATTEND Family Medicine
DX: Z20.828 Contact with and (suspected) exposure to other viral communicable diseases (principal)

== ENCOUNTER 2020-02-29 08:06 | Emergency (ER) | payer BC, OTHER ==
[~2020-02-29] VITALS: Ht 182.9 cm; Wt 122.7 kg
[2020-02-29 08:54] LABS: BASO # 0.1 10^3/uL (0.0-0.2); BASO % 0.7 % (0.0-1.0); EOS # 0.1 10^3/uL (0.0-0.5); EOS % 1.3 % (0.0-3.0); HEMATOCRIT 43.6 % (42.0-52.0); HEMOGLOBIN 13.8 g/dl (13.5-17.5); LYMPH # 1.6 10^3/uL (1.5-5.0); LYMPH % 23.4 % (24.0-44.0); MEAN CORPUSCULAR HEMOGLOBIN 28.8 pg (27.0-33.0); MEAN CORPUSCULAR HGB CONC 31.7 g/dl (32.0-36.5); MONO # 0.8 10^3/uL (0.0-0.8); NEUTROPHILS # 4.4 10^3/uL (1.5-8.5); NEUTROPHILS % 63.2 % (36.0-66.0); PLATELET COUNT, AUTOMATED 216 10^3/uL (150-450); RED BLOOD COUNT 4.79 10^6/uL (4.30-6.10); WHITE BLOOD COUNT 6.9 10^3/uL (4.0-10.0)
[2020-02-29 09:15] LABS: BLOOD UREA NITROGEN 16 MG/DL (7-18); CALCIUM LEVEL 8.8 MG/DL (8.5-10.1); CARBON DIOXIDE LEVEL 28 MEQ/L (21-32); CHLORIDE LEVEL 107 MEQ/L (98-107); CK-MB VALUE MASS 1.8 NG/ML (<3.6); CPK CREATINE PHOSPHOKINASE 121 U/L (39-308); CREATININE FOR GFR 0.84 MG/DL (0.70-1.30); GLOMERULAR FILTRATION RATE > 60.0 (>56); GLUCOSE, FASTING 107 MG/DL (70-100); MAGNESIUM LEVEL 2.3 MG/DL (1.8-2.4); MB/CK RELATIVE INDEX 1.49 (< OR =4); POTASSIUM SERUM 3.8 MEQ/L (3.5-5.1); SODIUM LEVEL 141 MEQ/L (136-145); TROPONIN I < 0.02 NG/ML (< 0.10)
[2020-02-29 09:21] LABS: APPEARANCE, URINE CLEAR (CLEAR); BACTERIA, URINE AUTO NEGATIVE (NEGATIVE); BILIRUBIN, URINE AUTO NEGATIVE (NEGATIVE); BLOOD, URINE BLOOD NEGATIVE (NEGATIVE); COLOR, URINE COLORLESS (YELLOW); GLUCOSE, URINE (UA) AUTO NEGATIVE (NEGATIVE); KETONE, URINE AUTO NEGATIVE (NEGATIVE); LEUKOCYTE ESTERASE, URINE AUTO NEGATIVE (NEGATIVE); NITRITE, URINE AUTO NEGATIVE (NEGATIVE); PROTEIN, URINE AUTO NEGATIVE (NEGATIVE); RBC, URINE AUTO 0 /HPF (0-3); SPECIFIC GRAVITY URINE AUTO 1.004 (1.002-1.035); SQUAMOUS EPITHELIAL CELL UR AU 0 /HPF (0-6); UROBILINOGEN, URINE AUTO 0.2 mg/dL (0.0-2.0); WBC, URINE AUTO 0 /HPF (0-3)
[2020-02-29 09:25] LABS: INR 0.96
[2020-02-29 10:00] VITALS: BP 119/67
--- NOTE | 2020-02-29 18:11 | ECGEPIP ---
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
== END 2020-02-29 10:19 | disposition home or self-care (01) ==
LOC: EDBD 08:06 → M ED 08:06
DX: R00.2 Palpitations (principal); Z87.891 Personal history of nicotine dependence; Z79.899 Other long term (current) drug therapy

== ENCOUNTER 2020-03-10 10:18 | Emergency (ER) | payer BC, OTHER ==
[~2020-03-10] VITALS: Ht 182.9 cm; Wt 122.7 kg
--- NOTE | 2020-03-10 10:53 | REP ---
INDICATION: CHEST PAIN COMPARISON: 07/08/2019 TECHNIQUE: Portable AP view of the chest FINDINGS: The mediastinum and cardiac silhouette are stable and within normal limits for portable technique. The lung polanco are clear without acute consolidation, effusion, or pneumothorax. Skeletal structures are intact. Fragmented metallic foreign body material overlies left shoulder and remains stable IMPRESSION: No acute cardiopulmonary process appreciated. <Electronically signed by Boston Beavers > 03/10/20 1040
[2020-03-10 10:58] LABS: BASO # 0.1 10^3/uL (0.0-0.2); BASO % 0.7 % (0.0-1.0); EOS # 0.1 10^3/uL (0.0-0.5); EOS % 1.1 % (0.0-3.0); HEMOGLOBIN 14.4 g/dl (13.5-17.5); LYMPH # 1.8 10^3/uL (1.5-5.0); LYMPH % 25.2 % (24.0-44.0); MEAN CORPUSCULAR HEMOGLOBIN 28.9 pg (27.0-33.0); MEAN CORPUSCULAR VOLUME 90.4 fl (80.0-96.0); MONO # 0.7 10^3/uL (0.0-0.8); MONO % 9.5 % (0.0-5.0); NEUTROPHILS # 4.5 10^3/uL (1.5-8.5); NEUTROPHILS % 63.1 % (36.0-66.0); PLATELET COUNT, AUTOMATED 236 10^3/uL (150-450); RED BLOOD COUNT 4.98 10^6/uL (4.30-6.10); WHITE BLOOD COUNT 7.1 10^3/uL (4.0-10.0)
[2020-03-10 11:08] LABS: INR 0.98; PARTIAL THROMBOPLASTIN TIME 25.3 SECONDS (24.2-38.5); PROTHROMBIN TIME 13.2 SECONDS (12.5-14.3)
[2020-03-10 11:28] LABS: ALT/SGPT 56 U/L (12-78); BILIRUBIN,DIRECT 0.1 MG/DL (0.0-0.2); BILIRUBIN,TOTAL 0.4 MG/DL (0.2-1.0); BLOOD UREA NITROGEN 11 MG/DL (7-18); CALCIUM LEVEL 9.2 MG/DL (8.5-10.1); CARBON DIOXIDE LEVEL 30 MEQ/L (21-32); CHLORIDE LEVEL 103 MEQ/L (98-107); CK-MB VALUE MASS 1.7 NG/ML (<3.6); CPK CREATINE PHOSPHOKINASE 113 U/L (39-308); CREATININE FOR GFR 0.88 MG/DL (0.70-1.30); D-DIMER QUANT < 270 ng/ml (<500); FREE T4 0.91 NG/DL (0.76-1.46); GLOMERULAR FILTRATION RATE > 60.0 (>56); GLUCOSE, FASTING 109 MG/DL (70-100); LIPASE 112 U/L (73-393); MAGNESIUM LEVEL 2.3 MG/DL (1.8-2.4); POTASSIUM SERUM 4.4 MEQ/L (3.5-5.1); SODIUM LEVEL 138 MEQ/L (136-145); THYROID STIMULATING HORMONE 0.683 uIU/ML (0.358-3.740); TOTAL PROTEIN 7.3 GM/DL (6.4-8.2); TROPONIN I < 0.02 NG/ML (< 0.10)
[2020-03-10 14:06] LABS: AMPHETAMINES LEVEL URINE NEGATIVE (NEGATIVE); BARBITURATES URINE NEGATIVE (NEGATIVE); BENZODIAZEPINES URINE NEGATIVE (NEGATIVE); CANNABINOIDS URINE NEGATIVE (NEGATIVE); COCAINE METABOLITE URINE NEGATIVE (NEGATIVE); METHADONE URINE NEGATIVE (NEGATIVE); OPIATES URINE NEGATIVE (NEGATIVE); PHENCYCLIDINE URINE NEGATIVE (NEGATIVE)
[2020-03-10 14:15] LABS: CK-MB VALUE MASS 2.3 NG/ML (<3.6); CPK CREATINE PHOSPHOKINASE 98 U/L (39-308); MB/CK RELATIVE INDEX 2.35 (< OR =4); TROPONIN I < 0.02 NG/ML (< 0.10)
[2020-03-10 15:24] VITALS: BP 147/78
--- NOTE | 2020-03-12 07:30 | ECGEPIP ---
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
--- NOTE | 2020-03-12 07:31 | ECGEPIP ---
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 Order Number: [id number] Reading MD: Sonia Lizama Measurements Intervals [place] Rate: 69 P: 3 [place]: 179 QRS: -14 QRSD: 102 T: 12 QT: 355 QTc: 383 Interpretive Statements SINUS RHYTHM MODERATE VOLTAGE CRITERIA FOR LVH, CONSIDER NORMAL VARIANT NSTTW abnormalities SIMILAR 03/10/20 Electronically Signed on 03-12-2020 7:31:24 EST by Sonia Lizama
== END 2020-03-10 15:40 | disposition home or self-care (01) ==
LOC: M ED 10:18
DX: R00.2 Palpitations (principal); R55 Syncope and collapse; Z79.899 Other long term (current) drug therapy

== ENCOUNTER → 2020-03-10 | Outpatient (CLI) | payer BC, OTHER | LOC: M LABSMTC 09:42 | PROVIDERS: ATTEND Family Medicine | DX: Z11.59 Encounter for screening for other viral diseases (principal) ==

== ENCOUNTER 2020-05-03 21:22 | Emergency (ER) | payer BC, OTHER ==
[~2020-05-03] VITALS: Ht 182.9 cm; Wt 122.7 kg
--- OUTSIDE RECORDS SUMMARY | 2020-05-03 21:27 | CCD | Continuity of Care Document ---
Author Author Bang GORDON Organization Unknown Address Formerly [facility] [employer] [facility], [place] [address] Phone [phone] Care Team Providers Care Vocational Rehabilitation Consultant Name Role Phone Simeon Zavala MD AUTM [phone] Kayla Saldana MD AUTM [phone] Axel Barrett AUTM [phone] Problems Active Problems Provider Date Palpitations Simeon Zavala MD Onset: 02/11/2020 Disturbance in sleep behavior Simeon Zavala MD Onset: Edema Simeon Zavala MD Onset: 02/11/2020 Heart murmur Simeon Zavala MD Onset: 02/11/2020 Dyspnea Simeon Zavala MD Onset: 02/11/2020 Body mass index 30+ - obesity Simeon Zavala MD Onset: Gastroesophageal reflux disease Simeon Zavala MD Onset: 1 04/12/2019 Electrocardiogram abnormal Simeon Zavala MD Onset: 2019 Elevated blood-pressure reading without diagnosis of h ypertension Simeon Zavala MD Onset: 02/11/2020 Dizziness and giddiness Simeon Zavala MD Onset: 0 Precordial pain Simeon Zavala MD Onset: 02/11/2020 Social History Type Date Description Comments Sex Unknown ETOH Use Occasionally consumes beer Tobacco Use Start: Unknown End: Unknown Patient is a former smoker started at age 16, at most 1.5 ppd, quit in 1992 Smoking Status Reviewed: 02/11/20 Patient is a former smoker st arted at age 16, at most 1.5 ppd, quit in 1992 Exercise Type/Frequency Does housework twice a w [place] Exercise Type/Frequency Does yardwork three time s a week Exercise Limitations None Allergies, Adverse Reactions, Alerts Active Allergies Reaction Severity Comments Date Nitroglycerin Low BP 02/11/2020 Inactive Allergies NKDA 03/23/2008 Medications Active Medications SIG Qnty Indications Ordering Provide r Date Omeprazole 40mg Capsules DR 1 by mouth every day Unknown 02/10/2020 Immunizations Description No Information Available Vital Signs Date Vital Result Comment 02/11/2020 12:47pm Weight 269.00 lb Height 72 inches 6'0" BMI (Body Mass Index) 36.5 kg/m2 Heart Rate 72 /min regular Respiratory Rate 16 /min BP Systolic Sitting 133 mmHg large cuff, Ra; 134/ 82 LA BP Diastolic Sitting 80 mmHg large cuff, Ra; 134 /82 LA BP Systolic Lying Down 142 mmHg Ra BP Diastolic Lying Down 85 mmHg Ra Results Test Acquired Date Facility Test Result H/L Range Note Basic Metabolic Panel 02/29/2020 [facility] - not interfac ed (315)- - Glucose 107 83-110 Blood Urea Nitrogen 14 7-18 Creatinine 0.84 0.6-1.0 Sodium 141 136-145 Potassium 3.8 3.5-5.1 Chloride 107 98-107 Carbon Dioxide 28 21-32 Calcium 8.8 8.2-9.6 GFR (Calculated) >60.0 >32 CPK & CPK MB 02/29/2020 [facility] - not interfaced (315)- - CPK 121 CPK-MB 1.8 Laboratory test finding 02/29/2020 [facility] - not interf aced (315)- - Magnesium Level 2.3 1.8-2.4 Troponin <0.02 Thyroid Stimulating Hormone 1.130 CBC without Differential 02/29/2020 [facility] - not inter faced (315)- - White Blood Count 6.9 4.0-10.0 Red Blood Count 4.79 4.30-6.10 Platelets 216 172-450 Hemoglobin 13.8 Hematocrit 43.6 Procedures Date Code Description Status 03/24/2020 18634 Echocardiogram 2-D Doppler Color Completed 03/17/2020 87462 Treadmill/Pharmacological Monito ring Completed 02/11/2020 05633 ECG 12-Lead Completed Medical Devices Description No Information Available Encounters Type Date Location Provider Dx Diagnosis Office Visit 02/11/2020 12:45p Main Office Simeon Zavala MD R07.2 Precordial pain R06.02 Shortness of breath R00.2 Palpitations R01.1 Cardiac murmur, unspecified R60.0 Localized edema R94.31 Abnormal electrocardiogram [ ECG] [EKG] G47.9 Sleep disorder, unspecified K21.9 Gastro-esophageal reflux dis ease without esophagitis Z68.36 Body mass index [BMI] 36.0-3 6.9, adult Assessments Date Code Description Provider 03/24/2020 R06.02 Shortness of breath ECHO 03/24/2020 R01.1 Cardiac murmur, unspecified ECHO 03/24/2020 R07.9 Chest pain, unspecified ECHO 03/17/2020 R07.2 Precordial pain Stress Nuclear/R eg Treadmill 03/17/2020 R06.02 Shortness of breath Stress Nucle ar/Reg Treadmill 03/17/2020 R94.31 Abnormal electrocardiogram [ECG] [EKG] Stress Nuclear/Reg Treadmill 02/11/2020 R07.2 Precordial pain Simeon Zavala MD 02/11/2020 R06.02 Shortness of breath Simeon phillip MD 02/11/2020 R00.2 Palpitations Simeon Zavala MD 02/11/2020 R01.1 Cardiac murmur, unspecified Todd Zavala MD 02/11/2020 R60.0 Localized edema Simeon Zavala MD 02/11/2020 R94.31 Abnormal electrocardiogram [ECG] [EKG] Simeon Zavala MD 02/11/2020 G47.9 Sleep disorder, unspecified Todd Zavala MD 02/11/2020 K21.9 Gastro-esophageal reflux disease without esophagitis Simeon Zavala MD 02/11/2020 Z68.36 Body mass index [BMI] 36.0-36.9, adult Simeon Zavala MD Plan of Treatment Future Appointment(s):* 03/25/2020 3:30 pm - Holter/Event/Telemetry at Main Office 02/11/2020 - Simeon Zavala MD* R07.2 Precordial pain* New Labs:* Sedimentation Rate, Scheduled: 02/12/20 * C-Reactive Protein, Scheduled: 02/12/20 * Lipid Panel, Scheduled: 02/12/20 * Recommendations:* Have requested a sedimentation rate, C-reactive protein, and fasting lipid profile. Would also recommend and objective definition of his coronary prognosis. In the absence of baseline repolarization abnormality, a regular treadmill study has been suggested. * R06.02 Shortness of breath* Recommendations:* In light of this symptom, his heart murmur and localized edema, and echocardiogram/Doppler study has been requested to evaluate cardiac chamber sizes and function. Would encourage dietary measures and regular aerobic exercise walking at his own pace for at least 30-60 minutes daily if possible. * R00.2 Palpitations* New Orders:* Event Monitor, Scheduled: 03/25/20 * Recommendations:* In light of this symptom and history of possible transient ischemic attack June 2019, we have requested a 30 day event recording of spontaneous rhythm and have encouraged continued avoiding of all caffeinated beverages, alcohol, nicotine and zhbe-wrx-vcyrici decongestants, pep pills, dietary aids etc. * R01.1 Cardiac murmur, unspecified* Recommendations:* Echocardiogram/Doppler study will document whether there is any valvular structural or functional disturbance that may require followup. * R60.0 Localized edema* Recommendations:* His echocardiogram/Doppler study will allow us to assess right heart chamber sizes, pulmonary arterial and central venous pressures. I am convinced this will improve with dietary measures and weight reduction. Should avoid cooking with salt, adding salt to food at the table, or eating foods that taste salty. * R94.31 Abnormal electrocardiogram [ECG] [EKG]* Recommendations:* Pending noninvasive test findings. * G47.9 Sleep disorder, unspecified* Recommendations:* Should his echocardiogram/Doppler study to document pulmonary hypertension, would recommend an official sleep study be performed. * K21.9 Gastro-esophageal reflux disease without esophagitis* Recommendations:* Would encourage his continued antireflux measures including avoiding eating or drinking for 2-3 hours prior to lying down, and minimizing caffeine and alcohol ingestion. This problem will clearly improve with weight reduction and reduced pressure on his stomach. Remains on omeprazole. * Z68.36 Body mass index [BMI] 36.0-36.9, adult* Recommendations:* Have encouraged a low carbohydrate diet (avoiding bread, potatoes, pasta, rice, fruit, candy, desserts, and beer etc.) as these, along with regular exercise, have been shown to be more effective in leading to weight loss. * All * Comments:* I will ensure that the aforementioned test findings are reported to you along with any further recommendations. Thank you for allowing me to participate in the care of your patient. Best regards. * Follow up:* Clinic visit post testing Functional Status Functional Condition Comment Date Status Independent with all ADL's Activ e Mental Status Description No Information Available Referrals Description No Information Available
--- OUTSIDE RECORDS SUMMARY | 2020-05-03 21:27 | CCD | Continuity of Care Document ---
Author Bang Bryan M.D. Organization Unknown Address [address] [place] [address] Phone [phone] Care Team Providers Care Excel Analyst Name Role Phone [facility] - Physical Therapist AUTM [phone] [facility] Gastroenterology AUTM [phone] Problems Active Problems Provider Date Atopic dermatitis Garrett Diallo M.D. Onset: 2014 Constipation Garrett Diallo M.D. Onset: 2014 Vitamin D deficiency Garrett Diallo M.D. Onset: 04/02 Social History Type Date Description Comments Sex Unknown Tobacco Use Start: Unknown Former Cigarette Smoker Packs Da liz 1 1/2 for 10 years Tobacco Use Start: Unknown , quit 1997 Tobacco Use Start: Unknown Never Used Smokeless Tobacco ETOH Use Currently consumes alcohol ETOH Use , 10-12 drinks a week Tobacco Use Start: Unknown End: Patient is a former smoker Recreational Drug Use Denies Drug Use Smoking Status Reviewed: 05/21/19 Patient is a former smoker Exercise Type/Frequency Exercises sporadically Sun Exposure Moderate amount of sun exposure Sun Exposure Uses sunscreen sometimes Seat Belt/Car Seat Always uses seat belt Bike Helmet Never does not bike ri de Smoke Alarms Yes Smoke Alarms Carbon Monoxide Detector: Yes Allergies, Adverse Reactions, Alerts Active Allergies Reaction Severity Comments Date Nitrostat severe dropped in BP and Pulse 06/15/2017 Inactive Allergies NKDA 01/07/2010 Medications Active Medications SIG Qnty Indications Ordering Provide r Date Amoxicillin/Clavulanate Potassium 875-125mg Tablets 1 by mouth twice a day for 10 days 20tabs J01.90 Kasie Haq ch, FNP 03/02/2020 Cyclobenzaprine HCL 10mg Tablets take one tab by mouth three times a day as needed for muscle spasm 30tabs M5 4.6 Kayla Saldana M.D. 08/25/2019 Vitamin D-3 25mcg (1000 Ut) Capsul es 1 tabs once daily Unknown 07/09/[address] take one capsule by mouth every day for heartburn/acid reflux 90caps K21.9 Kayla Saldana M.D. 08/28/2018 History Medications Medrol 4mg Tablets take each days pills at once in the morning with food 1tabs M94.0 Kayla Saldana M.D. 01/08/2020 - 03/02/2020 Immunizations Description No Information Available Vital Signs Date Vital Result Comment 01/08/2020 10:39am BP Systolic 133 mmHg BP Diastolic 78 mmHg Heart Rate 75 /min Body Temperature 97.1 F Respiratory Rate 20 /min Height 73 inches 6'1" Weight 271.38 lb O2 % BldC Oximetry 97 % Peak Expiratory Flow Rate 576 Estimated Peak Flow Rate Naper Body Weight 184 lb BMI (Body Mass Index) 35.8 kg/m2 05/21/2019 9:47am BP Systolic 119 mmHg BP Diastolic 72 mmHg Heart Rate 75 /min Body Temperature 98.2 F Respiratory Rate 16 /min Height 73 inches 6'1" Weight 278.00 lb O2 % BldC Oximetry 97 % Peak Expiratory Flow Rate 576 Estimated Peak Flow Rate Naper Body Weight 184 lb BMI (Body Mass Index) 36.7 kg/m2 Results Test Acquired Date Facility Test Result H/L Range Note Drug Eval Toxicology ED Only 03/10/2020 Patient Ser vice [facility] [place] [address] [phone] Amphetamines Level Urine NEGATIVE Normal Negativ e Barbiturates Urine NEGATIVE Normal Negative Benzodiazepines Urine NEGATIVE Normal Negative Cannabinoids Urine NEGATIVE Normal Negative Cocaine Metabolite Urine NEGATIVE Normal Negative Methadone Urine NEGATIVE Normal Negative Opiates Urine NEGATIVE Normal Negative Phencyclidine Urine NEGATIVE Normal Negative 1 Cardiac Marker Panel 03/10/2020 Patient Service [facility] [place] [address] [phone] CPK Creatine Phosphokinase 98 U/L Normal 39-30 8 CK-MB Value Mass 2.3 NG/ML Normal <3.6 MB/CK Relative Index 2.35 Normal < Or =4 2 Troponin I < 0.02 NG/ML Normal < 0.10 3 CBC With Differential 03/10/2020 Patient [place] [address] [phone] White Blood Count 7.1 10 Normal 4.0-10.0 Red Blood Count 4.98 10 Normal 4.30-6.10 Hemoglobin 14.4 g/dL Normal 13.5-17.5 Hematocrit 45.0 % Normal 42.0-52.0 Mean Corpuscular Volume 90.4 fl Normal 80.0-96.0 Mean Corpuscular Hemoglobin 28.9 pg Normal 27.0-33.0 Mean Corpuscular HGB Conc 32.0 g/dL Normal 32.0-36.5 Red Cell Distribution Width 12.7 % Normal 11.5-14.5 Platelet Count, Automated 236 10 Normal 150-450 Neutrophils % 63.1 % Normal 36.0-66.0 Lymph % 25.2 % Normal 24.0-44.0 Garfield % 9.5 % High 0.0-5.0 Eos % 1.1 % Normal 0.0-3.0 Baso % 0.7 % Normal 0.0-1.0 Immature Granulocyte % 0.4 % Normal 0-3.0 Nucleated Red Blood Cell % 0.0 % Normal 0-0 Neutrophils # 4.5 10 Normal 1.5-8.5 Lymph # 1.8 10 Normal 1.5-5.0 Garfield # 0.7 10 Normal 0.0-0.8 Eos # 0.1 10 Normal 0.0-0.5 Baso # 0.1 10 Normal 0.0-0.2 Prothrombin Time/Inr 03/10/2020 [place] [address] [phone] Prothrombin Time 13.2 seconds Normal 12.5-14.3 Inr 0.98 Normal 4 Laboratory test finding 03/10/2020 [place] [address] [phone] Partial Thromboplastin Time 25.3 seconds Normal 24 .2-38.5 Cardiac Marker Panel 03/10/2020 [place] [address] [phone] CPK Creatine Phosphokinase 113 U/L Normal 39-30 8 CK-MB Value Mass 1.7 NG/ML Normal <3.6 MB/CK Relative Index 1.50 Normal < Or =4 5 Troponin I < 0.02 NG/ML Normal < 0.10 6 Liver Profile 03/10/2020 Patient Service [place], [place] [id number] [phone] Ast/Sgot 23 U/L Normal 7-37 Alt/SGPT 56 U/L Normal 12-78 Alkaline Phosphatase 57 U/L Normal 45-117 Bilirubin,Total 0.4 mg/dL Normal 0.2-1.0 Bilirubin,Direct 0.1 mg/dL Normal 0.0-0.2 Total Protein 7.3 GM/DL Normal 6.4-8.2 Albumin 4.0 GM/DL Normal 3.2-5.2 Albumin/Globulin Ratio 1.2 Normal Basic Metabolic Profile 03/10/2020 Patient Service [place], [place] [id number] [phone] Glucose, Fasting 109 mg/dL High 70-100 Blood Urea Nitrogen 11 mg/dL Normal 7-18 Creatinine For GFR 0.88 mg/dL Normal 0.70-1.30 Glomerular Filtration Rate > 60.0 Normal >56 7 Sodium Level 138 mEq/L Normal 136-145 Potassium Serum 4.4 mEq/L Normal 3.5-5.1 Chloride Level 103 mEq/L Normal 98-107 Carbon Dioxide Level 30 mEq/L Normal 21-32 Anion Gap 5 mEq/L Low 8-16 Calcium Level 9.2 mg/dL Normal 8.5-10.1 Laboratory test finding 03/10/2020 Patient Service [place], [place] [id number] [phone] Magnesium Level 2.3 mg/dL Normal 1.8-2.4 8 Lipase 112 U/L Normal 73-393 9 Thyroid Stimulating Hormone 0.683 uIU/ML Normal 0.358-3.740 10 Free T4 0.91 ng/dL Normal 0.76-1.46 11 D-Dimer Quant < 270 ng/ml Normal <500 Coronavirus 2019 Nasopharygeal 03/10/2020 Patient S ervice [place], [place] [id number] [phone] Coronavirus 2019 Nasopharygeal This nucleic aci <SEE N OTE> 12 Coronavirus 2019 Nasopharygeal 02/17/2020 [facility] [place] [address] [phone] Coronavirus 2019 Nasopharygeal This nucleic aci <SEE N OTE> 13 1 ALL PRESUMPTIVE POSITIVE FINDINGS ARE UNCONFIRMED THRESHOLD IN NG/ML AMPHETAMINES/METHAMPHET 1000 BARBITURATES 200 BENZODIAZEPINES 200 CANNABINOIDS (THC) 50 COCAINE METABOLITE 300 METHADONE 300 OPIATES 300 PHENCYCLIDINE 25 RESULTS ARE FOR MEDICAL PURPOSES ONLY. ALL URINE SPECIMENS WILL BE SAVED FOR 3 DAYS. IF CONFIRMATION OF A PRESUMPTIVE POSITIVE SCREEN RESULT IS DESIRED, CALL CHEMISTRY ([phone]) AND REQUEST URINE TO BE SENT TO REFERENCE LAB. FOR A LIST OF CLOSELY RELATED COMPOUNDS PLEASE CALL THE LAB. 2 DIAGNOSIS CRITERIA MMB ng/ml Relative Index (RI) NON-AMI < or = 5 N/A HERRERA ZONE > 5 < or = 4 AMI > 5 > 4 3 Troponin I Reference Interva l for [email or web address]: 99th Percentile= 0.00-0.045 ng/ml Risk Stratification: <= 0.10 ng/ml Decreased Risk for Adverse Clinical Events. 0.10-1.50 ng/ml Increased Risk for Adv erse Clinical Events. Evaluation of additional criterion and/or repeat testing in 2-6 hours is suggested to rule out myocardial damage. >= 1.50 ng/ml Indicative of Myocardial Injury. 4 THERAPUTIC HUMAN INR VALUES INDICATIONS NORMAL RANGES PROPHYLAXIS/TREATMENT OF: VENOUS THROMBOSIS 2.0-3.0 PULMONARY EMBOLISM 2.0-3.0 PREVENTION OF SYSTEMIC EMBOLISM FROM: TISSUE HEART VALVES 2.0-3.0 ACUTE MYOCARDIAL INFARCTION 2.0-3.0 VALVULAR HEART DISEASE 2.0-3.0 ATRIAL FIBRILLATION 2.0-3.0 MECHANICAL VALVES(HIGH RISK) 2.5-3.5 RECURRENT MYOCARDIAL INFARCTION 2.5-3.5 5 DIAGNOSIS CRITERIA MMB ng/ml Relative Index (RI) NON-AMI < or = 5 N/A HERRERA ZONE > 5 < or = 4 AMI > 5 > 4 6 Troponin I Reference Interva l for [employer]: 99th Percentile= 0.00-0.045 ng/ml Risk Stratification: <= 0.10 ng/ml Decreased Risk for Adverse Clinical Events. 0.10-1.50 ng/ml Increased Risk for Adv erse Clinical Events. Evaluation of additional criterion and/or repeat testing in 2-6 hours is suggested to rule out myocardial damage. >= 1.50 ng/ml Indicative of Myocardial Injury. 7 Units are mL/min/1.73 m2 Chronic Kidney Disease Staging per NKF: Stage I & II GFR >=60 Normal to Mildly Decreased Stage III GFR 30-59 Moderately Decreased Stage IV GFR 15-29 Severely Decreased Stage V GFR <15 Very Little GFR Left ESRD GFR <15 on PERSONNEL ADVISER 8 COMMENT--- 9 COMMENT--- 10 COMMENT--- 11 COMMENT--- 12 This nucleic acid amplificat ion test was developed and its performance characteristics determined by [facility]. Nucleic acid amplification tests include PCR and TMA. This test has not been FDA cleared or approved. This test has been authorized by FDA under an Emergency Use Authorization (EUA). This test is only authorized for the duration of time the declaration that circumstances exist justifying the authorization of the emergency use of in vitro diagnostic tests for detection of SARS-CoV-2 virus and/or diagnosis of COVID-19 infection under section 564(b)(1) of the Act, 21 U.S.C. 360bbb-3 (b) (1), unless the authorization is terminated or revoked sooner. When diagnostic testing is negative, the possibility of a false negative result should be considered in the context of a patient's recent exposures and the presence of clinical signs and symptoms consistent with COVID-19. An individual without symptoms of COVID-19 and who is not shedding SARS-CoV-2 virus would expect to have a negative (not detected) result in this assay. Performed at: [email or web address] [address] [facility] [facility], [place], [place] [id number] Business Continuity Global Director: Pooja Vidal PhD, Phone: [phone] Not Detected 13 This nucleic acid amplificat ion test was developed and its performance characteristics determined by [facility]. Nucleic acid amplification tests include PCR and TMA. This test has not been FDA cleared or approved. This test has been authorized by FDA under an Emergency Use Authorization (EUA). This test is only authorized for the duration of time the declaration that circumstances exist justifying the authorization of the emergency use of in vitro diagnostic tests for detection of SARS-CoV-2 virus and/or diagnosis of COVID-19 infection under section 564(b)(1) of the Act, 21 U.S.C. 360bbb-3 (b) (1), unless the authorization is terminated or revoked sooner. When diagnostic testing is negative, the possibility of a false negative result should be considered in the context of a patient's recent exposures and the presence of clinical signs and symptoms consistent with COVID-19. An individual without symptoms of COVID-19 and who is not shedding SARS-CoV-2 virus would expect to have a negative (not detected) result in this assay. Performed at: [email or web address] [address] [facility], [place], [place] [id number] Business Continuity Global Director: Pooja Vidal PhD, Phone: [phone] Not Detected Procedures Description No Information Available Medical Devices Description No Information Available Encounters Type Date Location Provider Dx Diagnosis Office Visit 03/02/2020 8:15a Main Office Kasie Smith FNP J01.9 0 Acute sinusitis, unspecified Office Visit 01/08/2020 10:30a Main Office Ines Wilkins PA M94.0 Chondrocostal junction syndrome [Tietze] Assessments Date Code Description Provider 03/02/2020 J01.90 Acute sinusitis, unspecified Kasie Pathak FNP 01/08/2020 M94.0 Chondrocostal junction syndrome [Tietze] Ines Wilkins PA Plan of Treatment 03/02/2020 - Kasie Smith FNP* J01.90 Acute sinusitis, unspecified* New Medication:* Amoxicillin/Clavulanate Potassium 875-125 mg - 1 by mouth twice a day for 10 days Functional Status Functional Condition Comment Date Status Bifocal glasses Active Independent with all ADL's Activ e Mental Status Mental Condition Comment Date Status None Active Referrals Description No Information Available
--- OUTSIDE RECORDS SUMMARY | 2020-05-03 21:27 | CCD | Continuity of Care Document ---
Author Author Bang SMITH Organization Unknown Address [address] [place] [address] Phone [phone] Care Team Providers Care Bit Sharpener Name Role Phone [facility] - Physical Therapist AUTM [phone] [facility] AUTM Problems Active Problems Provider Date Gastroesophageal reflux disease Kasie Smith FNP Onset: 04/27/2020 Vitamin D deficiency Kasie Smith FNP Onset: 04/27/2020 Social History Type Date Description Comments Sex [...] Use Denies Drug Use Smoking Status Reviewed: 04/27/20 Patient is a former smoker Exercise Type/Frequency [...] SIG Qnty Indications Ordering Provide r Date Vitamin D-3 25mcg (1000 Ut) Capsul es 1 tabs once daily Unknown 07/09/[address] take one capsule by mouth every day for heartburn/acid reflux 90caps K21.9 Kayla Saldana M.D. 08/28/2018 Centrum Silver Tablets 1 by mouth every day Unknown Zinc Gummie one daily Unknown History Medications Amoxicillin/Clavulanate Potassium 875-125mg Tablets 1 by mouth twice a day for 10 days 20tabs J01.90 Kasie Haq ch, FNP 03/02/2020 - 04/27/2020 Medrol 4mg Tablets take each days pills at once in the morning with food 1tabs M94.0 Kayla Saldana M.D. 01/08/2020 - 03/02/2020 Immunizations Description No Information Available Vital Signs Date Vital Result Comment 04/27/2020 10:45am BP Systolic 129 mmHg BP Diastolic 69 mmHg Heart Rate 75 /min Body Temperature 97.4 F Respiratory Rate 16 /min Height 73 inches 6'1" Weight 270.50 lb O2 % BldC Oximetry 98 % Peak Expiratory Flow Rate 576 Estimated Peak Flow Rate [place] Body Weight 184 lb BMI (Body Mass Index) 35.7 kg/m2 01/08/2020 10:39am BP Systolic 133 mmHg BP Diastolic 78 mmHg Heart Rate 75 /min Body Temperature 97.1 F Respiratory Rate 20 /min Height 73 inches 6'1" Weight 271.38 lb O2 % BldC Oximetry 97 % Peak Expiratory Flow Rate 576 Estimated Peak Flow Rate [place] Body Weight 184 lb BMI (Body Mass Index) 35.8 kg/m2 Results Test Acquired Date Facility Test Result H/L Range Note Metabolic Panel (14), Comprehensive 04/27/[address] [facility] [address] [address] [phone] Glucose 108 mg/dL High 65-99 BUN 13 mg/dL 6-24 Creatinine 0.78 mg/dL 0.76-1.27 eGFR If NonAfricn Am 103 mL/min/1.73 >59 eGFR If Africn Am 119 mL/min/1.73 >59 BUN/Creatinine Ratio 17 9-20 Sodium 143 mmol/L 134-144 Potassium 4.2 mmol/L 3.5-5.2 Chloride 103 mmol/L 96-106 Carbon Dioxide, Total 25 mmol/L 20-29 Calcium 9.5 mg/dL 8.7-10.2 Protein, Total 7.0 g/dL 6.0-8.5 Albumin 4.3 g/dL 3.8-4.9 Globulin, Total 2.7 g/dL 1.5-4.5 A/G Ratio 1.6 1.2-2.2 Bilirubin, Total 0.3 mg/dL 0.0-1.2 Alkaline Phosphatase 59 IU/L 39-117 Ast (Sgot) 22 IU/L 0-40 Alt (SGPT) 37 IU/L 0-44 Laboratory test finding 04/27/[address] [facility] [address] [place] [address] [phone] Thyroxine (T4) Free, Direct, S 1.09 ng/dL 0 .82-1.77 Vitamin B12 & Folate 04/27/2020 [place] [address] [phone] Folate (Folic Acid), Serum 16.0 ng/mL >3.0 1 Laboratory test finding 04/27/2020 [place] [address] [phone] Vitamin D, 25-Hydroxy 35.3 ng/mL 30.0-100.0 2 TSH And T4 Free ([place]) 04/27/2020 [facility] [place] [id number] [phone] TSH 0.862 uIU/mL 0.450-4.500 Laboratory test finding 04/27/[address] [address] [phone] Rheumatoid Arthritis Factor <10.0 IU/mL 0.0 -13.9 Laboratory test finding 04/27/[address] [facility] [address] [place], [place] [address] [phone] Sedimentation Rate-Westergren 20 mm/hr 0- 30 CBC With Differential 04/27/2020 [place] [address] [phone] WBC 7.4 x10E3/uL 3.4-10.8 RBC 4.85 x10E6/uL 4.14-5.80 Hemoglobin 14.2 g/dL 13.0-17.7 Hematocrit 43.1 % 37.5-51.0 MCV 89 fL 79-97 MCH 29.3 pg 26.6-33.0 MCHC 32.9 g/dL 31.5-35.7 RDW 12.9 % 11.6-15.4 Platelets 236 x10E3/uL 150-450 Neutrophils 61 % Not Estab. Lymphs 26 % Not Estab. Monocytes 10 % Not Estab. Eos 1 % Not Estab. Basos 1 % Not Estab. Immature Cells TNP Neutrophils (Absolute) 4.6 x10E3/uL 1.4-7.0 Lymphs (Absolute) 2.0 x10E3/uL 0.7-3.1 Monocytes(Absolute) 0.8 x10E3/uL 0.1-0.9 Eos (Absolute) 0.1 x10E3/uL 0.0-0.4 Baso (Absolute) 0.1 x10E3/uL 0.0-0.2 Immature Granulocytes 1 % Not Estab. Immature Grans (Abs) 0.1 x10E3/uL 0.0-0.1 NRBC TNP Hematology Comments: TNP Coronavirus 2019 Nasopharygeal 03/10/2020 Patient S ervice [place] [address]420 [phone] Coronavirus 2019 Nasopharygeal This nucleic aci <SEE N OTE> 3 Laboratory test finding 03/10/2020 [facility] [place] [id number] [phone] Magnesium Level 2.3 mg/dL Normal 1.8-2.4 4 Lipase 112 U/L Normal 73-393 5 Thyroid Stimulating Hormone 0.683 uIU/ML Normal 0.358-3.740 6 Free T4 0.91 ng/dL Normal 0.76-1.46 7 D-Dimer Quant < 270 ng/ml Normal <500 Basic Metabolic Profile 03/10/2020 Patient Service [place], [place] [id number] [phone] Glucose, Fasting 109 mg/dL High 70-100 Blood Urea Nitrogen 11 mg/dL Normal 7-18 Creatinine For GFR 0.88 mg/dL Normal 0.70-1.30 Glomerular Filtration Rate > 60.0 Normal >56 8 Sodium Level 138 mEq/L Normal 136-145 Potassium Serum 4.4 mEq/L Normal 3.5-5.1 Chloride Level 103 mEq/L Normal 98-107 Carbon Dioxide Level 30 mEq/L Normal 21-32 Anion Gap 5 mEq/L Low 8-16 Calcium Level 9.2 mg/dL Normal 8.5-10.1 Liver Profile 03/10/2020 [place] [address] [phone] Ast/Sgot 23 U/L Normal 7-37 Alt/SGPT 56 U/L Normal 12-78 Alkaline Phosphatase 57 U/L Normal 45-117 Bilirubin,Total 0.4 mg/dL Normal 0.2-1.0 Bilirubin,Direct 0.1 mg/dL Normal 0.0-0.2 Total Protein 7.3 GM/DL Normal 6.4-8.2 Albumin 4.0 GM/DL Normal 3.2-5.2 Albumin/Globulin Ratio 1.2 Normal Cardiac Marker Panel 03/10/2020 [place] [address] [phone] CPK Creatine Phosphokinase 113 U/L Normal 39-30 8 CK-MB Value Mass 1.7 NG/ML Normal <3.6 MB/CK Relative Index 1.50 Normal < Or =4 9 Troponin I < 0.02 NG/ML Normal < 0.10 10 Laboratory test finding 03/10/2020 [place] [address] [phone] Partial Thromboplastin Time 25.3 seconds Normal 24 .2-38.5 Prothrombin Time/Inr 03/10/2020 [place] [address] [phone] Prothrombin Time 13.2 seconds Normal 12.5-14.3 Inr 0.98 Normal 11 CBC With Differential 03/10/2020 [place] [address] [phone] White Blood Count 7.1 10 Normal 4.0-10.0 [...] 36.0-66.0 Lymph % 25.2 % Normal 24.0-44.0 [place] % 9.5 % High 0.0-5.0 Eos % 1.1 % Normal 0.0-3.0 Baso % 0.7 % Normal 0.0-1.0 Immature Granulocyte % 0.4 % Normal 0-3.0 Nucleated Red Blood Cell % 0.0 % Normal 0-0 Neutrophils # 4.5 10 Normal 1.5-8.5 Lymph # 1.8 10 Normal 1.5-5.0 Beltrami # 0.7 10 Normal 0.0-0.8 Eos # 0.1 10 Normal 0.0-0.5 Baso # 0.1 10 Normal 0.0-0.2 Cardiac Marker Panel 03/10/2020 [place] [address] [phone] CPK Creatine Phosphokinase 98 U/L Normal 39-30 8 CK-MB Value Mass 2.3 NG/ML Normal <3.6 MB/CK Relative Index 2.35 Normal < Or =4 12 Troponin I < 0.02 NG/ML Normal < 0.10 13 Drug Eval Toxicology ED Only 03/10/2020 [place] [address] [phone] Amphetamines Level Urine NEGATIVE Normal Negativ e Barbiturates Urine NEGATIVE Normal Negative Benzodiazepines Urine NEGATIVE Normal Negative Cannabinoids Urine NEGATIVE Normal Negative Cocaine Metabolite Urine NEGATIVE Normal Negative Methadone Urine NEGATIVE Normal Negative Opiates Urine NEGATIVE Normal Negative Phencyclidine Urine NEGATIVE Normal Negative 14 Coronavirus 2019 Nasopharygeal 02/17/2020 [place] [address] [phone] Coronavirus 2019 Nasopharygeal This nucleic aci <SEE N OTE> 15 1 A serum folate concentration of less than 3.1 ng/mL is considered to represent clinical deficiency. 2 Vitamin D deficiency has bee n defined by the [place] of [employer] and an Endocrine Society practice guideline as a level of serum 25-OH vitamin D less than 20 ng/mL (1,2). The Endocrine Society went on to further define vitamin D insufficiency as a level between 21 and 29 ng/mL (2). 1. IOM ([place] [employer]). 2010. Di etary reference intakes for calcium and D. [place]: The National AcademLiveAction Press. 2. Alonzo MF, Yung ESPINOZA, Bruce alvarez CROW, et al. Evaluation, treatment, and prevention of vitamin D deficiency: an Endocrine Society clinical practice guideline. JCEM. 2010; 96(7):1911-30. 3 This nucleic acid amplificat ion test was developed and its performance characteristics determined by [employer]. Nucleic acid amplification tests include PCR and [...] detected) result in this assay. Performed at: [facility] [address] [employer] [facility], [place], [place] [id number] Brand Sales Consultant: Pooja Vidal PhD, Phone: [phone] Not Detected 4 COMMENT--- 5 COMMENT--- 6 COMMENT--- 7 COMMENT--- 8 Units are mL/min/1.73 m2 Chronic Kidney Disease Staging per NKF: Stage I & II GFR >=60 Normal to Mildly Decreased Stage III GFR 30-59 Moderately Decreased Stage IV GFR 15-29 Severely Decreased Stage V GFR <15 Very Little GFR Left ESRD GFR <15 on DATABASE DBA 9 DIAGNOSIS CRITERIA MMB ng/ml Relative Index (RI) NON-AMI < or = 5 N/A HERRERA ZONE > 5 < or = 4 AMI > 5 > 4 10 Troponin I Reference Interva l for Siemens [place] LOCI: 99th Percentile= 0.00-0.045 ng/ml Risk Stratification: <= 0.10 ng/ml Decreased Risk for Adverse Clinical Events. 0.10-1.50 ng/ml Increased Risk for Adv erse Clinical Events. Evaluation of additional criterion and/or repeat testing in 2-6 hours is suggested to rule out myocardial damage. >= 1.50 ng/ml Indicative of Myocardial Injury. 11 THERAPUTIC HUMAN INR VALUES INDICATIONS NORMAL RANGES PROPHYLAXIS/TREATMENT OF: VENOUS THROMBOSIS 2.0-3.0 PULMONARY EMBOLISM 2.0-3.0 PREVENTION OF SYSTEMIC EMBOLISM FROM: TISSUE HEART VALVES 2.0-3.0 ACUTE MYOCARDIAL INFARCTION 2.0-3.0 VALVULAR HEART DISEASE 2.0-3.0 ATRIAL FIBRILLATION 2.0-3.0 MECHANICAL VALVES(HIGH RISK) 2.5-3.5 RECURRENT MYOCARDIAL INFARCTION 2.5-3.5 12 DIAGNOSIS CRITERIA MMB ng/ml Relative Index (RI) NON-AMI < or = 5 N/A HERRERA ZONE > 5 < or = 4 AMI > 5 > 4 13 Troponin I Reference Interva l for Siemens [place] LOCI: 99th Percentile= 0.00-0.045 ng/ml Risk Stratification: <= 0.10 ng/ml Decreased Risk for Adverse Clinical Events. 0.10-1.50 ng/ml Increased Risk for Adv erse Clinical Events. Evaluation of additional criterion and/or repeat testing in 2-6 hours is suggested to rule out myocardial damage. >= 1.50 ng/ml Indicative of Myocardial Injury. 14 ALL PRESUMPTIVE POSITIVE FINDINGS ARE UNCONFIRMED THRESHOLD [...] CLOSELY RELATED COMPOUNDS PLEASE CALL THE LAB. 15 This nucleic acid amplificat ion test was developed and its performance characteristics determined by [employer]. Nucleic acid amplification tests include PCR and [...] detected) result in this assay. Performed at: [facility] [facility], [place], [place] [id number] Brand Sales Consultant: Pooja Vidal PhD, Phone: [phone] Not Detected Procedures Description No Information Available Medical Devices Description No Information Available Encounters Type Date Location Provider Dx Diagnosis Office Visit 04/27/2020 10:30a Main Office Kasie Smith FNP Z00.0 0 Encntr for general adult medical exam w/o abnormal findings R20.2 Paresthesia of skin K21.9 Gastro-esophageal reflux dis ease without esophagitis E55.9 Vitamin D deficiency, unspec ified Office Visit 03/02/2020 8:15a Main Office Kasie Smith FNP J01.9 0 Acute sinusitis, unspecified Office Visit 01/08/2020 10:30a Main Office Ines Wilkins PA M94.0 Chondrocostal junction syndrome [Tietze] Assessments Date Code Description Provider 04/27/2020 Z00.00 Encounter for genera l adult medical examination without abnormal findings Kasie Smith FNP 04/27/2020 R20.2 Paresthesia of skin Donny Smith FNP 04/27/2020 K21.9 Gastro-esophageal reflux disease without esophagitis Kasie Smith FNP 04/27/2020 E55.9 Vitamin D deficiency, unspecifie d Kasie Smith FNP 03/02/2020 J01.90 Acute sinusitis, unspecified Kasie Pathak FNP 01/08/2020 M94.0 Chondrocostal junction syndrome [Tietze] Ines Wilkins PA Plan of Treatment 04/27/2020 - Kasie Smith FNP* Z00.00 Encounter for general adult medical examination without abnormal findings* Comments:* Health maintenance discussed, over due for colonoscopy. Overall doing well. TRACY/PHQ 9/CAGE questionnaire reviewed. Discussed healthy lifestyle choices. * Follow up:* annually * R20.2 Paresthesia of skin* Comments:* will get blood work and proceed based on results, may refer to neurology * K21.9 Gastro-esophageal reflux disease without esophagitis* Comments:* controlled on current medications * E55.9 Vitamin D deficiency, unspecified* Comments:* continue supplementation Functional Status Functional Condition Comment Date Status Bifocal glasses Active Independent with all ADL's Activ e Mental Status Mental Condition Comment Date Status None Active Referrals Description No Information Available
--- OUTSIDE RECORDS SUMMARY | 2020-05-03 21:27 | CCD ---
Continuity of Care Document (CCD) Created on: 04/28/2020 Bang Natarajan External Reference #: [id number] : 1965 Sex: Male Author Author Bang SMITH Organization Unknown Address [address] [place] [address] Phone [phone] Care Team Providers Care Paint Process Engineer Name Role Phone [facility] - Physical Therapist AUTM [phone] [facility] AUTM [phone] Problems Active Problems Provider Date Gastroesophageal reflux [...] Flow Rate 576 Estimated Peak Flow Rate [place] Body Weight 184 lb BMI (Body Mass Index) 35.7 kg/m2 01/08/2020 10:39am BP Systolic 133 mmHg BP Diastolic 78 mmHg Heart Rate 75 /min Body Temperature 97.1 F Respiratory Rate 20 /min Height 73 inches 6'1" Weight 271.38 lb O2 % BldC Oximetry 97 % Peak Expiratory Flow Rate 576 Estimated Peak Flow Rate [place] Body Weight 184 lb BMI (Body Mass Index) 35.8 kg/m2 Results Test Acquired Date Facility Test Result H/L Range Note CBC With Differential 04/27/[address] [facility] [address] [place] [address] [id number] [phone] WBC 7.4 x10E3/uL 3.4-10.8 RBC 4.85 x10E6/uL [...] TNP Coronavirus 2019 Nasopharygeal 03/10/2020 [facility] [place] [address] [phone] Coronavirus 2019 Nasopharygeal This nucleic aci <SEE N OTE> 1 Laboratory test finding 03/10/2020 Patient Service [place] [id number] [phone] Magnesium Level 2.3 mg/dL Normal 1.8-2.4 2 Lipase 112 U/L Normal 73-393 3 Thyroid Stimulating Hormone 0.683 uIU/ML Normal 0.358-3.740 4 Free T4 0.91 ng/dL Normal 0.76-1.46 5 D-Dimer Quant < 270 ng/ml Normal <500 Basic Metabolic Profile 03/10/2020 Patient Service [place] 3102146 [phone] Glucose, Fasting 109 mg/dL High 70-100 Blood Urea Nitrogen 11 mg/dL Normal 7-18 Creatinine For GFR 0.88 mg/dL Normal 0.70-1.30 Glomerular Filtration Rate > 60.0 Normal >56 6 Sodium Level 138 mEq/L Normal 136-145 Potassium Serum 4.4 mEq/L Normal 3.5-5.1 Chloride Level 103 mEq/L Normal 98-107 Carbon Dioxide Level 30 mEq/L Normal 21-32 Anion Gap 5 mEq/L Low 8-16 Calcium Level 9.2 mg/dL Normal 8.5-10.1 Liver Profile 03/10/2020 [place] [address] [phone] Ast/Sgot 23 U/L Normal 7-37 Alt/SGPT 56 U/L Normal 12-78 Alkaline Phosphatase 57 U/L Normal 45-117 Bilirubin,Total 0.4 mg/dL Normal 0.2-1.0 Bilirubin,Direct 0.1 mg/dL Normal 0.0-0.2 Total Protein 7.3 GM/DL Normal 6.4-8.2 Albumin 4.0 GM/DL Normal 3.2-5.2 Albumin/Globulin Ratio 1.2 Normal Cardiac Marker Panel 03/10/2020 [place] [address] [phone] CPK Creatine Phosphokinase 113 U/L Normal 39-30 8 CK-MB Value Mass 1.7 NG/ML Normal <3.6 MB/CK Relative Index 1.50 Normal < Or =4 7 Troponin I < 0.02 NG/ML Normal < 0.10 8 Laboratory test finding 03/10/2020 [place] [address] [phone] Partial Thromboplastin Time 25.3 seconds Normal 24 .2-38.5 Prothrombin Time/Inr 03/10/2020 [place] [address] [phone] Prothrombin Time 13.2 seconds Normal 12.5-14.3 Inr 0.98 Normal 9 CBC With Differential 03/10/2020 [place] [address] [phone] White Blood Count 7.1 10 Normal 4.0-10.0 [...] 36.0-66.0 Lymph % 25.2 % Normal 24.0-44.0 Daniels % 9.5 % High 0.0-5.0 Eos % 1.1 % Normal 0.0-3.0 Baso % 0.7 % Normal 0.0-1.0 Immature Granulocyte % 0.4 % Normal 0-3.0 Nucleated Red Blood Cell % 0.0 % Normal 0-0 Neutrophils # 4.5 10 Normal 1.5-8.5 Lymph # 1.8 10 Normal 1.5-5.0 Daniels # 0.7 10 Normal 0.0-0.8 Eos # 0.1 10 Normal 0.0-0.5 Baso # 0.1 10 Normal 0.0-0.2 Cardiac Marker Panel 03/10/2020 [place] [address] [phone] CPK Creatine Phosphokinase 98 U/L Normal 39-30 8 CK-MB Value Mass 2.3 NG/ML Normal <3.6 MB/CK Relative Index 2.35 Normal < Or =4 10 Troponin I < 0.02 NG/ML Normal < 0.10 11 Drug Eval Toxicology ED Only 03/10/2020 [place] [address] [phone] Amphetamines Level Urine NEGATIVE Normal Negativ e Barbiturates Urine NEGATIVE Normal Negative Benzodiazepines Urine NEGATIVE Normal Negative Cannabinoids Urine NEGATIVE Normal Negative Cocaine Metabolite Urine NEGATIVE Normal Negative Methadone Urine NEGATIVE Normal Negative Opiates Urine NEGATIVE Normal Negative Phencyclidine Urine NEGATIVE Normal Negative 12 Coronavirus 2019 Nasopharygeal 02/17/2020 Patient S ervice [place], [place] [id number] [phone] Coronavirus 2019 Nasopharygeal This nucleic aci <SEE N OTE> 13 1 This nucleic acid amplificat ion test was developed and its performance characteristics determined by [employer]. Nucleic acid amplification tests include PCR and [...] detected) result in this assay. Performed at: [facility] [address] [employer] [facility], [place] [id number] Hand Spring Former: Pooja Vidal PhD, Phone: [phone] Not Detected 2 COMMENT--- 3 COMMENT--- 4 COMMENT--- 5 COMMENT--- 6 Units are mL/min/1.73 m2 Chronic Kidney Disease Staging per NKF: Stage I & II GFR >=60 Normal to Mildly Decreased Stage III GFR 30-59 Moderately Decreased Stage IV GFR 15-29 Severely Decreased Stage V GFR <15 Very Little GFR Left ESRD GFR <15 on SHIP SURVEYOR 7 DIAGNOSIS CRITERIA MMB ng/ml Relative Index (RI) NON-AMI < or = 5 N/A HERRERA ZONE > 5 < or = 4 AMI > 5 > 4 8 Troponin I Reference Interva l for Pouring [place]ounds: 99th Percentile= 0.00-0.045 ng/ml Risk Stratification: <= 0.10 ng/ml Decreased Risk for Adverse Clinical Events. 0.10-1.50 ng/ml Increased Risk for Adv erse Clinical Events. Evaluation of additional criterion and/or repeat testing in 2-6 hours is suggested to rule out myocardial damage. >= 1.50 ng/ml Indicative of Myocardial Injury. 9 THERAPUTIC HUMAN INR VALUES INDICATIONS NORMAL RANGES PROPHYLAXIS/TREATMENT OF: VENOUS THROMBOSIS 2.0-3.0 PULMONARY EMBOLISM 2.0-3.0 PREVENTION OF SYSTEMIC EMBOLISM FROM: TISSUE HEART VALVES 2.0-3.0 ACUTE MYOCARDIAL INFARCTION 2.0-3.0 VALVULAR HEART DISEASE 2.0-3.0 ATRIAL FIBRILLATION 2.0-3.0 MECHANICAL VALVES(HIGH RISK) 2.5-3.5 RECURRENT MYOCARDIAL INFARCTION 2.5-3.5 10 DIAGNOSIS CRITERIA MMB ng/ml Relative Index (RI) NON-AMI < or = 5 N/A HERRERA ZONE > 5 < or = 4 AMI > 5 > 4 11 Troponin I Reference Interva l for Siemens [place] LOCI: 99th Percentile= 0.00-0.045 ng/ml Risk Stratification: <= 0.10 ng/ml Decreased Risk for Adverse Clinical Events. 0.10-1.50 ng/ml Increased Risk for Adv erse Clinical Events. Evaluation of additional criterion and/or repeat testing in 2-6 hours is suggested to rule out myocardial damage. >= 1.50 ng/ml Indicative of Myocardial Injury. 12 ALL PRESUMPTIVE POSITIVE FINDINGS ARE UNCONFIRMED THRESHOLD [...] CLOSELY RELATED COMPOUNDS PLEASE CALL THE LAB. 13 This nucleic acid amplificat ion test was developed and its performance characteristics determined by [employer]. Nucleic acid amplification tests include PCR and [...] detected) result in this assay. Performed at: [facility] [address], [place], [place] [address] [id number] Hand Spring Former: Pooja Vidal PhD, Phone: [phone] Not Detected Procedures Description No Information Available Medical Devices Description No Information Available Encounters Type Date Location Provider Dx Diagnosis Office Visit 04/27/2020 10:30a Main Office Kasie Smith, TRUCK SAFETY INSPECTOR Z00.0 0 Encntr for general adult medical exam w/o abnormal findings R20.2 Paresthesia of skin K21.9 Gastro-esophageal reflux dis ease without esophagitis E55.9 Vitamin D deficiency, unspec ified Office Visit 03/02/2020 8:15a Main Office PlejakubachKasie, TRUCK SAFETY INSPECTOR J01.9 0 Acute sinusitis, unspecified Office Visit 01/08/2020 10:30a Main Office Ines Wilkins PA M94.0 Chondrocostal junction syndrome [Tietze] Assessments Date Code Description Provider 04/27/2020 Z00.00 Encounter for genera l adult medical examination without abnormal findings Kasie Smith FNP 04/27/2020 R20.2 Paresthesia of skin Donny Smith, TRUCK SAFETY INSPECTOR 04/27/2020 K21.9 Gastro-esophageal reflux disease without esophagitis Kasie Smith, TRUCK SAFETY INSPECTOR 04/27/2020 E55.9 Vitamin D deficiency, unspecifie d Kasie Smith, TRUCK SAFETY INSPECTOR 03/02/2020 J01.90 Acute sinusitis, unspecified Ple skSabina guerreroy, TRUCK SAFETY INSPECTOR 01/08/2020 M94.0 Chondrocostal junction syndrome [Tietze] Ines Wilkins PA Plan of Treatment 04/27/2020 - Kasie Smith, TRUCK SAFETY INSPECTOR* Z00.00 Encounter for general adult medical examination [...]
--- OUTSIDE RECORDS SUMMARY | 2020-05-03 21:27 | CCD ---
Continuity of Care Document (CCD) Created on: 04/29/2020 Bang Natarajan External Reference #: [id number] : 1965 Sex: Male Author Author Bang SMITH Organization Unknown Address [address] [place] [address] Phone [phone] Care Team Providers Care Meat Blender Name Role Phone [facility] - Physical Therapist AUTM [phone] [facility] Gastroenterology AUTM Problems Active Problems [...] Flow Rate 576 Estimated Peak Flow Rate [place] Body Weight 184 lb BMI (Body Mass Index) 35.7 kg/m2 01/08/2020 10:39am BP Systolic 133 mmHg BP Diastolic 78 mmHg Heart Rate 75 /min Body Temperature 97.1 F Respiratory Rate 20 /min Height 73 inches 6'1" Weight 271.38 lb O2 % BldC Oximetry 97 % Peak Expiratory Flow Rate 576 Estimated Peak Flow Rate [place] Body Weight 184 lb BMI (Body Mass Index) 35.8 kg/m2 Results Test Acquired Date Facility Test Result H/L Range Note Laboratory test finding 04/27/2020 [facility] [address] [place] [address] [phone] Antinuclear Antibodies, Ifa Negative 1 Lyme AB/Line Blot Reflex 04/27/2020 [facility] [address], [place] [address] [phone] Lyme IgG/IgM Ab <0.91 ISR 0.00-0.90 2 Lyme Disease Ab, Quant, IgM <0.80 index 0.00-0.79 3 Metabolic Panel (14), Comprehensive 04/27/2020 [facility] [address] [place] [address] [phone] Glucose 108 mg/dL High 65-99 BUN 13 [...] IU/L 0-44 Laboratory test finding 04/27/[address] [facility] [address] [place] [address] [phone] Thyroxine (T4) Free, Direct, S 1.09 ng/dL 0 .82-1.77 Vitamin B12 & Folate 04/27/[address] [facility] [address] [place] [phone] Folate (Folic Acid), Serum 16.0 ng/mL >3.0 4 Vitamin B12 320 pg/mL [phone] Laboratory test finding 04/27/[address] [facility] [address] [place] [address] [phone] Vitamin D, 25-Hydroxy 35.3 ng/mL 30.0-100.0 5 TSH And T4 Free ([facility]) 04/27/[address] [facility] [address] [place], [place] [address] [phone] TSH 0.862 uIU/mL 0.450-4.500 Laboratory test finding 04/27/[address] [facility] [address] [place], [place] [address] [phone] Rheumatoid Arthritis Factor <10.0 IU/mL 0.0 -13.9 Laboratory test finding 04/27/2020 [facility] [address], [place] [address] [phone] Sedimentation Rate-Westergren 20 mm/hr 0- 30 CBC With Differential 04/27/2020 [facility] [address], [place] [address] [phone] WBC 7.4 x10E3/uL 3.4-10.8 RBC 4.85 x10E6/uL [...] Coronavirus 2019 Nasopharygeal 03/10/2020 [place] [address] [phone] Coronavirus 2019 Nasopharygeal This nucleic aci <SEE N OTE> 6 Laboratory test finding 03/10/2020 Patient Service [place], [place] [address] [phone] Magnesium Level 2.3 mg/dL Normal 1.8-2.4 7 Lipase 112 U/L Normal 73-393 8 Thyroid Stimulating Hormone 0.683 uIU/ML Normal 0.358-3.740 9 Free T4 0.91 ng/dL Normal 0.76-1.46 10 D-Dimer Quant < 270 ng/ml Normal <500 Basic Metabolic Profile 03/10/2020 [place] [address] [phone] Glucose, Fasting 109 mg/dL High 70-100 Blood Urea Nitrogen 11 mg/dL Normal 7-18 Creatinine For GFR 0.88 mg/dL Normal 0.70-1.30 Glomerular Filtration Rate > 60.0 Normal >56 1 1 Sodium Level 138 mEq/L Normal 136-145 Potassium Serum 4.4 mEq/L Normal 3.5-5.1 Chloride Level 103 mEq/L Normal 98-107 Carbon Dioxide Level 30 mEq/L Normal 21-32 Anion Gap 5 mEq/L Low 8-16 Calcium Level 9.2 mg/dL Normal 8.5-10.1 Liver Profile 03/10/2020 [place] [address] [phone] Ast/Sgot 23 U/L Normal 7-37 Alt/SGPT 56 U/L Normal 12-78 Alkaline Phosphatase 57 U/L Normal 45-117 Bilirubin,Total 0.4 mg/dL Normal 0.2-1.0 Bilirubin,Direct 0.1 mg/dL Normal 0.0-0.2 Total Protein 7.3 GM/DL Normal 6.4-8.2 Albumin 4.0 GM/DL Normal 3.2-5.2 Albumin/Globulin Ratio 1.2 Normal Cardiac Marker Panel 03/10/2020 [place] [address] [phone] CPK Creatine Phosphokinase 113 U/L Normal 39-30 8 CK-MB Value Mass 1.7 NG/ML Normal <3.6 MB/CK Relative Index 1.50 Normal < Or =4 12 Troponin I < 0.02 NG/ML Normal < 0.10 13 Laboratory test finding 03/10/2020 [place] [address] [phone] Partial Thromboplastin Time 25.3 seconds Normal 24 .2-38.5 Prothrombin Time/Inr 03/10/2020 [place] [address] [phone] Prothrombin Time 13.2 seconds Normal 12.5-14.3 Inr 0.98 Normal 14 CBC With Differential 03/10/2020 [place] [address] [phone] White Blood Count 7.1 10 Normal 4.0-10.0 [...] 36.0-66.0 Lymph % 25.2 % Normal 24.0-44.0 [place] % 9.5 % High 0.0-5.0 Eos % 1.1 % Normal 0.0-3.0 Baso % 0.7 % Normal 0.0-1.0 Immature Granulocyte % 0.4 % Normal 0-3.0 Nucleated Red Blood Cell % 0.0 % Normal 0-0 Neutrophils # 4.5 10 Normal 1.5-8.5 Lymph # 1.8 10 Normal 1.5-5.0 Starke # 0.7 10 Normal 0.0-0.8 Eos # 0.1 10 Normal 0.0-0.5 Baso # 0.1 10 Normal 0.0-0.2 Cardiac Marker Panel 03/10/[address] [facility] [place] [address] [phone] CPK Creatine Phosphokinase 98 U/L Normal 39-30 8 CK-MB Value Mass 2.3 NG/ML Normal <3.6 MB/CK Relative Index 2.35 Normal < Or =4 15 Troponin I < 0.02 NG/ML Normal < 0.10 16 Drug Eval Toxicology ED Only 03/10/2020 Patient Ser [facility] [place] [address] [phone] Amphetamines Level Urine NEGATIVE Normal Negativ e Barbiturates Urine NEGATIVE Normal Negative Benzodiazepines Urine NEGATIVE Normal Negative Cannabinoids Urine NEGATIVE Normal Negative Cocaine Metabolite Urine NEGATIVE Normal Negative Methadone Urine NEGATIVE Normal Negative Opiates Urine NEGATIVE Normal Negative Phencyclidine Urine NEGATIVE Normal Negative 17 Coronavirus 2019 Nasopharygeal 02/17/2020 Patient S [facility] [place] [address] [phone] Coronavirus 2019 Nasopharygeal This nucleic aci <SEE N OTE> 18 1 Negative <1:80 Borderline 1:80 Positive >1:80 2 Negative <0.91 Equivocal 0.91 - 1.09 Positive >1.09 3 Negative <0.80 Equivocal 0.80 - 1.19 Positive >1.19 IgM levels may peak at 3-6 weeks post infection, then gradually decline. 4 A serum folate concentration of less than 3.1 ng/mL is considered to represent clinical deficiency. 5 Vitamin D deficiency has bee n defined by the [place] of [employer] and an Endocrine Society practice guideline as a level of serum 25-OH vitamin D less than 20 ng/mL (1,2). The Endocrine Society went on to further define vitamin D insufficiency as a level between 21 and 29 ng/mL (2). 1. IOM ([place] [employer]). 2010. Di etary reference intakes for calcium and D. [place]: The National Academies Press. 2. Alonzo MF, Yung NC, Bruce alvarez CROW, et al. Evaluation, treatment, and prevention of vitamin D deficiency: an Endocrine Society clinical practice guideline. JCEM. 2010; 96(7):1911-30. 6 This nucleic acid amplificat ion test was developed and its performance characteristics determined by [facility]. Nucleic acid amplification tests include PCR and [...] detected) result in this assay. Performed at: [facility] [address], [place], [place] [id number] Linoleum Layer Apprentice: Pooja Vidal PhD, Phone: [phone] Not Detected 7 COMMENT--- 8 COMMENT--- 9 COMMENT--- 10 COMMENT--- 11 Units are mL/min/1.73 m2 Chronic Kidney Disease Staging per NKF: Stage I & II GFR >=60 Normal to Mildly Decreased Stage III GFR 30-59 Moderately Decreased Stage IV GFR 15-29 Severely Decreased Stage V GFR <15 Very Little GFR Left ESRD GFR <15 on SENIOR MANAGEMENT CONSULTANT 12 DIAGNOSIS CRITERIA MMB ng/ml Relative Index (RI) NON-AMI < or = 5 N/A HERRERA ZONE > 5 < or = 4 AMI > 5 > 4 13 Troponin I Reference Interva l for Markr LOCI: 99th Percentile= 0.00-0.045 ng/ml Risk Stratification: <= 0.10 ng/ml Decreased Risk for Adverse Clinical Events. 0.10-1.50 ng/ml Increased Risk for Adv erse Clinical Events. Evaluation of additional criterion and/or repeat testing in 2-6 hours is suggested to rule out myocardial damage. >= 1.50 ng/ml Indicative of Myocardial Injury. 14 THERAPUTIC HUMAN INR VALUES INDICATIONS NORMAL RANGES PROPHYLAXIS/TREATMENT OF: VENOUS THROMBOSIS 2.0-3.0 PULMONARY EMBOLISM 2.0-3.0 PREVENTION OF SYSTEMIC EMBOLISM FROM: TISSUE HEART VALVES 2.0-3.0 ACUTE MYOCARDIAL INFARCTION 2.0-3.0 VALVULAR HEART DISEASE 2.0-3.0 ATRIAL FIBRILLATION 2.0-3.0 MECHANICAL VALVES(HIGH RISK) 2.5-3.5 RECURRENT MYOCARDIAL INFARCTION 2.5-3.5 15 DIAGNOSIS CRITERIA MMB ng/ml Relative Index (RI) NON-AMI < or = 5 N/A HERRERA ZONE > 5 < or = 4 AMI > 5 > 4 16 Troponin I Reference Interva l for [place] LOCI: 99th Percentile= 0.00-0.045 ng/ml Risk Stratification: <= 0.10 ng/ml Decreased Risk for Adverse Clinical Events. 0.10-1.50 ng/ml Increased Risk for Adv erse Clinical Events. Evaluation of additional criterion and/or repeat testing in 2-6 hours is suggested to rule out myocardial damage. >= 1.50 ng/ml Indicative of Myocardial Injury. 17 ALL PRESUMPTIVE POSITIVE FINDINGS ARE UNCONFIRMED THRESHOLD [...] CLOSELY RELATED COMPOUNDS PLEASE CALL THE LAB. 18 This nucleic acid amplificat ion test was developed and its performance characteristics determined by [facility] [facility]. Nucleic acid amplification tests include PCR and [...] detected) result in this assay. Performed at: [facility] [address], [place], [place] [id number] Linoleum Layer Apprentice: Pooja Vidal PhD, Phone: [phone] Not Detected Procedures Description No Information Available [...] Gastro-esophageal reflux disease without esophagitis Kasie Smith, JIN 04/27/2020 E55.9 Vitamin D deficiency, unspecifie d Kasie Smith FNP 03/02/2020 J01.90 Acute sinusitis, unspecified Ple Kasie ybarra, HEALTH PHYSICS TECHNICIAN 01/08/2020 M94.0 Chondrocostal junction syndrome [Tietze] Ines [...]
--- OUTSIDE RECORDS SUMMARY | 2020-05-03 21:27 | CCD ---
Continuity of Care Document (CCD) Created on: 04/28/2020 Bang Natarajan External Reference #: [id number] : [id number] Sex: Male Author Author Bang SMITH Organization Unknown Address [address] [place] [address] Phone [phone] Care Team Providers Care Waist Pleater Name Role Phone [facility] - Physical Therapist AUTM [phone] [facility] - Gastroenterology AUTM Problems Active Problems [...] day for heartburn/acid reflux 90caps K21.9 Kayla Sadlana M.D. 08/28/2018 Centrum Silver Tablets 1 by [...] Flow Rate 576 Estimated Peak Flow Rate [place] Body Weight 184 lb BMI (Body Mass Index) 35.7 kg/m2 01/08/2020 10:39am BP Systolic 133 mmHg BP Diastolic 78 mmHg Heart Rate 75 /min Body Temperature 97.1 F Respiratory Rate 20 /min Height 73 inches 6'1" Weight 271.38 lb O2 % BldC Oximetry 97 % Peak Expiratory Flow Rate 576 Estimated Peak Flow Rate [place] Body Weight 184 lb BMI (Body Mass Index) 35.8 kg/m2 Results Test Acquired Date Facility Test Result H/L Range Note CBC With Differential 04/27/[address] [facility] [address] [place] [id number] [phone] WBC 7.4 x10E3/uL 3.4-10.8 RBC 4.85 x10E6/uL [...] x10E3/uL 0.0-0.1 NRBC TNP Hematology Comments: TNP Laboratory test finding 04/27/[address] [facility] [address] [place] [address] [phone] Sedimentation Rate-Westergren 20 mm/hr 0- 30 Laboratory test finding 04/27/[address] [facility] [address] [place] [address] [phone] Rheumatoid Arthritis Factor <10.0 IU/mL 0.0 -13.9 TSH And T4 Free ([place]) 04/27/[address] [facility] [address] [place] [address] [phone] TSH 0.862 uIU/mL 0.450-4.500 Laboratory test finding 04/27/[address] [facility] [address] [place] [address] [phone] Vitamin D, 25-Hydroxy 35.3 ng/mL 30.0-100.0 1 Vitamin B12 & Folate 04/27/[address] [facility] [address] [place], [place] [address] [phone] Folate (Folic Acid), Serum 16.0 ng/mL >3.0 2 Laboratory test finding 04/27/[address] [facility] [address] [place] [address] [phone] Thyroxine (T4) Free, Direct, S 1.09 ng/dL 0 .82-1.77 Coronavirus 2019 Nasopharygeal 03/10/2020 Patient S [facility] [place] [address] [phone] Coronavirus 2019 Nasopharygeal This nucleic aci <SEE N OTE> 3 Laboratory test finding 03/10/2020 [place] [address] [phone] Magnesium Level 2.3 mg/dL Normal 1.8-2.4 4 Lipase 112 U/L Normal 73-393 5 Thyroid Stimulating Hormone 0.683 uIU/ML Normal 0.358-3.740 6 Free T4 0.91 ng/dL Normal 0.76-1.46 7 D-Dimer Quant < 270 ng/ml Normal <500 Basic Metabolic Profile 03/10/2020 [place] [address] [phone] Glucose, Fasting 109 mg/dL High 70-100 Blood [...] Normal 8.5-10.1 Liver Profile 03/10/2020 Patient Service [place] [address] [phone] Ast/Sgot 23 U/L Normal 7-37 Alt/SGPT 56 U/L Normal 12-78 Alkaline Phosphatase 57 U/L Normal 45-117 Bilirubin,Total 0.4 mg/dL Normal 0.2-1.0 Bilirubin,Direct 0.1 mg/dL Normal 0.0-0.2 Total Protein 7.3 GM/DL Normal 6.4-8.2 Albumin 4.0 GM/DL Normal 3.2-5.2 Albumin/Globulin Ratio 1.2 Normal Cardiac Marker Panel 03/10/[address] [place] [address] [phone] CPK Creatine Phosphokinase 113 U/L Normal 39-30 8 CK-MB Value Mass 1.7 NG/ML Normal <3.6 MB/CK Relative Index 1.50 Normal < Or =4 9 Troponin I < 0.02 NG/ML Normal < 0.10 10 Laboratory test finding 03/10/2020 [place] [address] [phone] Partial Thromboplastin Time 25.3 seconds Normal 24 .2-38.5 Prothrombin Time/Inr 03/10/2020 Patient Service [place] [address]326 [phone] Prothrombin Time 13.2 seconds Normal 12.5-14.3 Inr 0.98 Normal 11 CBC With Differential 03/10/2020 [place] [address] [phone] White Blood Count 7.1 10 Normal 4.0-10.0 [...] 36.0-66.0 Lymph % 25.2 % Normal 24.0-44.0 [place] % 9.5 % High 0.0-5.0 Eos % 1.1 % Normal 0.0-3.0 Baso % 0.7 % Normal 0.0-1.0 Immature Granulocyte % 0.4 % Normal 0-3.0 Nucleated Red Blood Cell % 0.0 % Normal 0-0 Neutrophils # 4.5 10 Normal 1.5-8.5 Lymph # 1.8 10 Normal 1.5-5.0 [place] # 0.7 10 Normal 0.0-0.8 Eos # 0.1 10 Normal 0.0-0.5 Baso # 0.1 10 Normal 0.0-0.2 Cardiac Marker Panel 03/10/2020 [place] [address] [phone] CPK Creatine Phosphokinase 98 U/L Normal 39-30 8 CK-MB Value Mass 2.3 NG/ML Normal <3.6 MB/CK Relative Index 2.35 Normal < Or =4 12 Troponin I < 0.02 NG/ML Normal < 0.10 13 Drug Eval Toxicology ED Only 03/10/2020 [place] [address] [phone] Amphetamines Level Urine NEGATIVE Normal Negativ e Barbiturates Urine NEGATIVE Normal Negative Benzodiazepines Urine NEGATIVE Normal Negative Cannabinoids Urine NEGATIVE Normal Negative Cocaine Metabolite Urine NEGATIVE Normal Negative Methadone Urine NEGATIVE Normal Negative Opiates Urine NEGATIVE Normal Negative Phencyclidine Urine NEGATIVE Normal Negative 14 Coronavirus 2019 Nasopharygeal 02/17/2020 Patient S ervice [place], [place] 4443623 [phone] Coronavirus 2019 Nasopharygeal This nucleic aci <SEE N OTE> 15 1 Vitamin D deficiency has bee n defined by the [place] of [employer] and an Endocrine Society practice guideline as a level of serum 25-OH vitamin D less than 20 ng/mL (1,2). The Endocrine Society went on to further define vitamin D insufficiency as a level between 21 and 29 ng/mL (2). 1. IOM ([place] of [employer]). 2010. Di etary reference intakes for calcium and D. [place]: The National Academies Press. 2. Alonzo MF, Yung NC, Bruce alvarez CROW, et al. Evaluation, treatment, and prevention of vitamin D deficiency: an Endocrine Society clinical practice guideline. JCEM. 2010; 96(7):1911-30. 2 A serum folate concentration of less than 3.1 ng/mL is considered to represent clinical deficiency. 3 This nucleic acid amplificat ion test was developed and its performance characteristics determined by [employer]. Nucleic acid amplification tests include PCR and [...] detected) result in this assay. Performed at: [facility] [address], [place] [id number] Fruit Harvest Machine Operator: Pooja Vidal PhD, Phone: [phone] Not Detected 4 COMMENT--- 5 COMMENT--- 6 COMMENT--- 7 COMMENT--- 8 Units are mL/min/1.73 m2 Chronic Kidney Disease Staging per NKF: Stage I & II GFR >=60 Normal to Mildly Decreased Stage III GFR 30-59 Moderately Decreased Stage IV GFR 15-29 Severely Decreased Stage V GFR <15 Very Little GFR Left ESRD GFR <15 on SOLE CUTTER 9 DIAGNOSIS CRITERIA MMB ng/ml Relative Index (RI) NON-AMI < or = 5 N/A HERRERA ZONE > 5 < or = 4 AMI > 5 > 4 10 Troponin I Reference Interva l for [place]: 99th Percentile= 0.00-0.045 ng/ml Risk Stratification: <= [...] 13 Troponin I Reference Interva l for wiMANta GrayBug: 99th Percentile= 0.00-0.045 ng/ml Risk Stratification: <= [...] developed and its performance characteristics determined by [employer]. Nucleic acid amplification tests include PCR and [...] detected) result in this assay. Performed at: [facility] [address], [place], [place] [id number] Fruit Harvest Machine Operator: Pooja Vidal PhD, Phone: [phone] Not Detected Procedures Description No Information Available Medical Devices Description No Information Available Encounters Type Date Location Provider Dx Diagnosis Office Visit 04/27/2020 10:30a Main Office Pleskach, Kasie, HOT WOUND SPRING PRODUCTION SUPERVISOR Z00.0 0 Encntr for general adult medical exam w/o abnormal findings R20.2 Paresthesia of skin K21.9 Gastro-esophageal reflux dis ease without esophagitis E55.9 Vitamin D deficiency, unspec ified Office Visit 03/02/2020 8:15a Main Office Kasie Smith, HOT WOUND SPRING PRODUCTION SUPERVISOR J01.9 0 Acute sinusitis, unspecified Office Visit 01/08/2020 10:30a Main Office Ines Wilkins PA M94.0 Chondrocostal junction syndrome [Tietze] Assessments Date Code Description Provider 04/27/2020 Z00.00 Encounter for genera l adult medical examination without abnormal findings Kasie Smith FNP 04/27/2020 R20.2 Paresthesia of skin Donny Smith, HOT WOUND SPRING PRODUCTION SUPERVISOR 04/27/2020 K21.9 Gastro-esophageal reflux disease without esophagitis Kasie Smith, HOT WOUND SPRING PRODUCTION SUPERVISOR 04/27/2020 E55.9 Vitamin D deficiency, unspecifie d Kasie Smith, HOT WOUND SPRING PRODUCTION SUPERVISOR 03/02/2020 J01.90 Acute sinusitis, unspecified Ple Kasie ybarra, HOT WOUND SPRING PRODUCTION SUPERVISOR 01/08/2020 M94.0 Chondrocostal junction syndrome [Tietze] Ines [...]
--- OUTSIDE RECORDS SUMMARY | 2020-05-03 21:27 | CCD | Continuity of Care Document ---
Author Author Holter/Event/TelemetryWm Organization Unknown Address [facility], [facility] [employer] [address] [place] [address] Phone [phone] Care Team Providers Care Wave Solder Offbearer Name Role Phone Simeon Zavala MD AUTM [phone] Kayla Saldana MD AUTM [phone] Axel Barrett AUTM [phone] Problems Active Problems Provider Date Palpitations Simeon [...] Exercise Type/Frequency Does housework twice a w igiugig Exercise Type/Frequency Does yardwork three time s [...] H/L Range Note Basic Metabolic Panel 02/29/2020 [facility] - not interfac ed (315)- - Glucose 107 83-110 Blood Urea Nitrogen 14 7-18 Creatinine 0.84 0.6-1.0 Sodium 141 136-145 Potassium 3.8 3.5-5.1 Chloride 107 98-107 Carbon Dioxide 28 21-32 Calcium 8.8 8.2-9.6 GFR (Calculated) >60.0 >32 CPK & CPK MB 02/29/2020 [facility] - not interfaced (315)- - CPK 121 CPK-MB 1.8 Laboratory test finding 02/29/2020 [facility] - not interf aced (315)- - Magnesium Level 2.3 1.8-2.4 Troponin <0.02 Thyroid Stimulating Hormone 1.130 CBC without Differential 02/29/2020 [facility] - not inter faced (315)- - White Blood Count 6.9 4.0-10.0 Red Blood Count 4.79 4.30-6.10 Platelets 216 172-450 Hemoglobin 13.8 Hematocrit 43.6 Procedures Date Code Description Status 03/25/2020 93722 Multi Event Recorder Interpretat ion Completed 03/25/2020 28473 Multi Event Recorder Hookup Comp leted 03/24/2020 96611 Echocardiogram 2-D Doppler Color Completed 03/17/2020 79878 Treadmill/Pharmacological Monito ring Completed 02/11/2020 44727 ECG 12-Lead Completed Medical Devices Description No [...] 6.9, adult Assessments Date Code Description Provider 03/25/2020 R00.2 Palpitations Holter/Event/Tel emetry 03/24/2020 R06.02 Shortness of breath ECHO 03/24/2020 [...] Zavala MD Plan of Treatment Future Appointment(s):* 05/17/2020 12:00 pm - Simeon Zavala MD at Main Office 02/11/2020 - Simeon Zavala [...] minutes daily if possible. * R00.2 Palpitations* Recommendations:* In light of this symptom and history of possible transient ischemic attack June 2019, we have requested a 30 day event recording of spontaneous rhythm and have encouraged continued avoiding of all caffeinated beverages, alcohol, nicotine and rrmi-jer-yhxipsv decongestants, pep pills, dietary aids etc. * [...]
--- OUTSIDE RECORDS SUMMARY | 2020-05-03 21:28 | CCD | Continuity of Care Document ---
Author Bang Bryan M.D. Organization Unknown Address [address] [place] [address] Phone [phone] Care Team Providers Care Repeater Operator Name Role Phone [facility] - Physical Therapist AUTM [phone] [facility]astro[facility] AUTM Problems Active Problems Provider Date Atopic dermatitis [...] Flow Rate 576 Estimated Peak Flow Rate [place] Body Weight 184 lb BMI (Body Mass Index) 35.8 kg/m2 05/21/2019 9:47am BP Systolic 119 mmHg BP Diastolic 72 mmHg Heart Rate 75 /min Body Temperature 98.2 F Respiratory Rate 16 /min Height 73 inches 6'1" Weight 278.00 lb O2 % BldC Oximetry 97 % Peak Expiratory Flow Rate 576 Estimated Peak Flow Rate [place] Body Weight 184 lb BMI (Body Mass Index) 36.7 kg/m2 Results Test Acquired Date Facility Test Result H/L Range Note Drug Eval Toxicology ED Only 03/10/2020 Patient Ser vice [facility] [place] [address] [phone] Amphetamines Level Urine NEGATIVE Normal Negativ e Barbiturates Urine NEGATIVE Normal Negative Benzodiazepines Urine NEGATIVE Normal Negative Cannabinoids Urine NEGATIVE Normal Negative Cocaine Metabolite Urine NEGATIVE Normal Negative Methadone Urine NEGATIVE Normal Negative Opiates Urine NEGATIVE Normal Negative Phencyclidine Urine NEGATIVE Normal Negative 1 Cardiac Marker Panel 03/10/2020 Patient Service [facility] [place] [address] [phone] CPK Creatine Phosphokinase 98 U/L Normal 39-30 8 CK-MB Value Mass 2.3 NG/ML Normal <3.6 MB/CK Relative Index 2.35 Normal < Or =4 2 Troponin I < 0.02 NG/ML Normal < 0.10 3 CBC With Differential 03/10/2020 [place] [address] [phone] White Blood Count 7.1 10 Normal 4.0-10.0 [...] 36.0-66.0 Lymph % 25.2 % Normal 24.0-44.0 [place] % 9.5 % High 0.0-5.0 Eos % 1.1 % Normal 0.0-3.0 Baso % 0.7 % Normal 0.0-1.0 Immature Granulocyte % 0.4 % Normal 0-3.0 Nucleated Red Blood Cell % 0.0 % Normal 0-0 Neutrophils # 4.5 10 Normal 1.5-8.5 Lymph # 1.8 10 Normal 1.5-5.0 [place] # 0.7 10 Normal 0.0-0.8 Eos # 0.1 10 Normal 0.0-0.5 Baso # 0.1 10 Normal 0.0-0.2 Prothrombin Time/Inr 03/10/2020 [place] [address] [phone] Prothrombin Time 13.2 seconds Normal 12.5-14.3 Inr 0.98 Normal 4 Laboratory test finding 03/10/2020 [place] [address] [phone] Partial Thromboplastin Time 25.3 seconds Normal 24 .2-38.5 Cardiac Marker Panel 03/10/2020 [place] [address] [phone] CPK Creatine Phosphokinase 113 U/L Normal 39-30 8 CK-MB Value Mass 1.7 NG/ML Normal <3.6 MB/CK Relative Index 1.50 Normal < Or =4 5 Troponin I < 0.02 NG/ML Normal < 0.10 6 Liver Profile 03/10/2020 Patient Service [place], [place] [id number] [phone] Ast/Sgot 23 U/L Normal 7-37 Alt/SGPT 56 U/L Normal 12-78 Alkaline Phosphatase 57 U/L Normal 45-117 Bilirubin,Total 0.4 mg/dL Normal 0.2-1.0 Bilirubin,Direct 0.1 mg/dL Normal 0.0-0.2 Total Protein 7.3 GM/DL Normal 6.4-8.2 Albumin 4.0 GM/DL Normal 3.2-5.2 Albumin/Globulin Ratio 1.2 Normal Basic Metabolic Profile 03/10/2020 Patient Service [place], [place] [id number] [phone] Glucose, Fasting 109 mg/dL High 70-100 Blood [...] 8.5-10.1 Laboratory test finding 03/10/2020 Patient Service [place], [place] [id number] [phone] Magnesium Level 2.3 mg/dL Normal 1.8-2.4 8 Lipase 112 U/L Normal 73-393 9 Thyroid Stimulating Hormone 0.683 uIU/ML Normal 0.358-3.740 10 Free T4 0.91 ng/dL Normal 0.76-1.46 11 D-Dimer Quant < 270 ng/ml Normal <500 Coronavirus 2019 Nasopharygeal 03/10/2020 Patient S ervice [place], [place] 8272487 [phone] Coronavirus 2019 Nasopharygeal This nucleic aci <SEE N OTE> 12 Coronavirus 2019 Nasopharygeal 02/17/2020 Patient S [facility] [place] [address] [phone] Coronavirus 2019 Nasopharygeal This nucleic aci <SEE [...] 3 Troponin I Reference Interva l for Ar[employer]: 99th Percentile= 0.00-0.045 ng/ml Risk Stratification: <= [...] 6 Troponin I Reference Interva l for [employer]: 99th Percentile= 0.00-0.045 ng/ml Risk Stratification: <= [...] Little GFR Left ESRD GFR <15 on SUPERVISOR MACHINE SETTER 8 COMMENT--- 9 COMMENT--- 10 COMMENT--- 11 COMMENT--- 12 This nucleic acid amplificat ion test was developed and its performance characteristics determined by [employer]. Nucleic acid amplification tests include PCR and [...] detected) result in this assay. Performed at: [employer] [facility] [address] [facility], [place], [place] [id number] Taxation Agent: Pooja Vidal PhD, Phone: [phone] Not Detected 13 This nucleic acid amplificat ion test was developed and its performance characteristics determined by [employer]. Nucleic acid amplification tests include PCR and [...] detected) result in this assay. Performed at: [employer] [facility] [address] [facility], [place], [place] [id number] Taxation Agent: Pooja Vidal PhD, Phone: [phone] Not Detected Procedures Description No Information Available [...]
--- OUTSIDE RECORDS SUMMARY | 2020-05-03 21:28 | CCD | Continuity of Care Document ---
Author Bang Bryan M.D. Organization Unknown Address [address] [place] [address] Phone [phone] Care Team Providers Care Cool Roofing Installer Name Role Phone [facility] - Physical Therapist AUTM [phone] [facility] - Gastroenterology AUTM Problems Active Problems [...] Flow Rate 576 Estimated Peak Flow Rate [place] Body Weight 184 lb BMI (Body Mass Index) 35.8 kg/m2 05/21/2019 9:47am BP Systolic 119 mmHg BP Diastolic 72 mmHg Heart Rate 75 /min Body Temperature 98.2 F Respiratory Rate 16 /min Height 73 inches 6'1" Weight 278.00 lb O2 % BldC Oximetry 97 % Peak Expiratory Flow Rate 576 Estimated Peak Flow Rate [place] Body Weight 184 lb BMI (Body Mass Index) 36.7 kg/m2 Results Test Acquired Date Facility Test Result H/L Range Note Drug Eval Toxicology ED Only 03/10/2020 Patient Ser vice [facility] [place] [address] [phone] Amphetamines Level Urine NEGATIVE Normal Negativ e Barbiturates Urine NEGATIVE Normal Negative Benzodiazepines Urine NEGATIVE Normal Negative Cannabinoids Urine NEGATIVE Normal Negative Cocaine Metabolite Urine NEGATIVE Normal Negative Methadone Urine NEGATIVE Normal Negative Opiates Urine NEGATIVE Normal Negative Phencyclidine Urine NEGATIVE Normal Negative 1 Cardiac Marker Panel 03/10/2020 Patient Service [facility] [address] [phone] CPK Creatine Phosphokinase 98 U/L Normal 39-30 8 CK-MB Value Mass 2.3 NG/ML Normal <3.6 MB/CK Relative Index 2.35 Normal < Or =4 2 Troponin I < 0.02 NG/ML Normal < 0.10 3 CBC With Differential 03/10/2020 [place] [address] [phone] White Blood Count 7.1 10 Normal 4.0-10.0 [...] 36.0-66.0 Lymph % 25.2 % Normal 24.0-44.0 [place] % 9.5 % High 0.0-5.0 Eos % 1.1 % Normal 0.0-3.0 Baso % 0.7 % Normal 0.0-1.0 Immature Granulocyte % 0.4 % Normal 0-3.0 Nucleated Red Blood Cell % 0.0 % Normal 0-0 Neutrophils # 4.5 10 Normal 1.5-8.5 Lymph # 1.8 10 Normal 1.5-5.0 [place] # 0.7 10 Normal 0.0-0.8 Eos # 0.1 10 Normal 0.0-0.5 Baso # 0.1 10 Normal 0.0-0.2 Prothrombin Time/Inr 03/10/2020 [place] [address] [phone] Prothrombin Time 13.2 seconds Normal 12.5-14.3 Inr 0.98 Normal 4 Laboratory test finding 03/10/2020 [place] [address] [phone] Partial Thromboplastin Time 25.3 seconds Normal 24 .2-38.5 Cardiac Marker Panel 03/10/2020 [place] [address] [phone] CPK Creatine Phosphokinase 113 U/L Normal 39-30 8 CK-MB Value Mass 1.7 NG/ML Normal <3.6 MB/CK Relative Index 1.50 Normal < Or =4 5 Troponin I < 0.02 NG/ML Normal < 0.10 6 Liver Profile 03/10/2020 Patient Service [place], [place] [address]24 [phone] Ast/Sgot 23 U/L Normal 7-37 Alt/SGPT 56 U/L Normal 12-78 Alkaline Phosphatase 57 U/L Normal 45-117 Bilirubin,Total 0.4 mg/dL Normal 0.2-1.0 Bilirubin,Direct 0.1 mg/dL Normal 0.0-0.2 Total Protein 7.3 GM/DL Normal 6.4-8.2 Albumin 4.0 GM/DL Normal 3.2-5.2 Albumin/Globulin Ratio 1.2 Normal Basic Metabolic Profile 03/10/2020 Patient Service [place], [place] 3251908 [phone] Glucose, Fasting 109 mg/dL High 70-100 Blood [...] 8.5-10.1 Laboratory test finding 03/10/2020 Patient Service [place], [place] [address]83[address]35 [phone] Magnesium Level 2.3 mg/dL Normal 1.8-2.4 8 Lipase 112 U/L Normal 73-393 9 Thyroid Stimulating Hormone 0.683 uIU/ML Normal 0.358-3.740 10 Free T4 0.91 ng/dL Normal 0.76-1.46 11 D-Dimer Quant < 270 ng/ml Normal <500 Coronavirus 2019 Nasopharygeal 03/10/2020 Patient S ervice [place], [place] [address]563349 [phone] Coronavirus 2019 Nasopharygeal This nucleic aci <SEE N OTE> 12 Coronavirus 2019 Nasopharygeal 02/17/2020 Patient S [facility] [place] [address] [phone] Coronavirus 2019 Nasopharygeal This nucleic aci <SEE [...] 3 Troponin I Reference Interva l for [place]: 99th Percentile= 0.00-0.045 ng/ml Risk Stratification: <= [...] 6 Troponin I Reference Interva l for [employer]: 99th Percentile= 0.00-0.045 ng/ml Risk Stratification: <= [...] Little GFR Left ESRD GFR <15 on HEEL SEAT FITTER 8 COMMENT--- 9 COMMENT--- 10 COMMENT--- 11 COMMENT--- 12 This nucleic acid amplificat ion test was developed and its performance characteristics determined by [employer]. Nucleic acid amplification tests include PCR and [...] detected) result in this assay. Performed at: [employer] [facility] [address] [facility], [place], [place] [id number] Nursing Service Administrator: Pooja Vidal PhD, Phone: [phone] Not Detected 13 This nucleic acid amplificat ion test was developed and its performance characteristics determined by [employer]. Nucleic acid amplification tests include PCR and [...] detected) result in this assay. Performed at: [employer] [address] [facility], [place], [place] [id number] Nursing Service Administrator: Pooja Vidal PhD, Phone: [phone] Not Detected Procedures Description No Information Available [...]
--- OUTSIDE RECORDS SUMMARY | 2020-05-03 21:28 | CCD | Continuity of Care Document ---
Author Bang Bryan M.D. Organization Unknown Address [address] [place] [address] Phone [phone] Care Team Providers Care Dumpman Name Role Phone [facility] - Physical Therapist AUTM [phone] [facility] - Gastroenterology AUTM [phone] Problems Active Problems Provider Date Atopic dermatitis [...] Flow Rate 576 Estimated Peak Flow Rate [place] Body Weight 184 lb BMI (Body Mass Index) 35.8 kg/m2 05/21/2019 9:47am BP Systolic 119 mmHg BP Diastolic 72 mmHg Heart Rate 75 /min Body Temperature 98.2 F Respiratory Rate 16 /min Height 73 inches 6'1" Weight 278.00 lb O2 % BldC Oximetry 97 % Peak Expiratory Flow Rate 576 Estimated Peak Flow Rate [place] Body Weight 184 lb BMI (Body Mass Index) 36.7 kg/m2 Results Test Acquired Date Facility Test Result H/L Range Note Drug Eval Toxicology ED Only 03/10/2020 Patient Ser vice [facility] [address] [phone] Amphetamines Level Urine NEGATIVE Normal Negativ e Barbiturates Urine NEGATIVE Normal Negative Benzodiazepines Urine NEGATIVE Normal Negative Cannabinoids Urine NEGATIVE Normal Negative Cocaine Metabolite Urine NEGATIVE Normal Negative Methadone Urine NEGATIVE Normal Negative Opiates Urine NEGATIVE Normal Negative Phencyclidine Urine NEGATIVE Normal Negative 1 Cardiac Marker Panel 03/10/2020 Patient Service [facility] [place] [address] [phone] CPK Creatine Phosphokinase 98 U/L Normal 39-30 8 CK-MB Value Mass 2.3 NG/ML Normal <3.6 MB/CK Relative Index 2.35 Normal < Or =4 2 Troponin I < 0.02 NG/ML Normal < 0.10 3 CBC With Differential 03/10/2020 [place] [address] [phone] White Blood Count 7.1 10 Normal 4.0-10.0 [...] 36.0-66.0 Lymph % 25.2 % Normal 24.0-44.0 [place] % 9.5 % High 0.0-5.0 Eos % 1.1 % Normal 0.0-3.0 Baso % 0.7 % Normal 0.0-1.0 Immature Granulocyte % 0.4 % Normal 0-3.0 Nucleated Red Blood Cell % 0.0 % Normal 0-0 Neutrophils # 4.5 10 Normal 1.5-8.5 Lymph # 1.8 10 Normal 1.5-5.0 [place] # 0.7 10 Normal 0.0-0.8 Eos # 0.1 10 Normal 0.0-0.5 Baso # 0.1 10 Normal 0.0-0.2 Prothrombin Time/Inr 03/10/2020 [place] [address] [phone] Prothrombin Time 13.2 seconds Normal 12.5-14.3 Inr 0.98 Normal 4 Laboratory test finding 03/10/2020 [place] [address] [phone] Partial Thromboplastin Time 25.3 seconds Normal 24 .2-38.5 Cardiac Marker Panel 03/10/2020 [place] [address] [phone] CPK Creatine Phosphokinase 113 U/L Normal 39-30 8 CK-MB Value Mass 1.7 NG/ML Normal <3.6 MB/CK Relative Index 1.50 Normal < Or =4 5 Troponin I < 0.02 NG/ML Normal < 0.10 6 Liver Profile 03/10/2020 Patient Service [place], [place] 2082684 [phone] Ast/Sgot 23 U/L Normal 7-37 Alt/SGPT 56 U/L Normal 12-78 Alkaline Phosphatase 57 U/L Normal 45-117 Bilirubin,Total 0.4 mg/dL Normal 0.2-1.0 Bilirubin,Direct 0.1 mg/dL Normal 0.0-0.2 Total Protein 7.3 GM/DL Normal 6.4-8.2 Albumin 4.0 GM/DL Normal 3.2-5.2 Albumin/Globulin Ratio 1.2 Normal Basic Metabolic Profile 03/10/2020 Patient Service [place], [place] 98[address]109 [phone] Glucose, Fasting 109 mg/dL High 70-100 Blood [...] 8.5-10.1 Laboratory test finding 03/10/2020 Patient Service [place], [place] 5656322 [phone] Magnesium Level 2.3 mg/dL Normal 1.8-2.4 8 Lipase 112 U/L Normal 73-393 9 Thyroid Stimulating Hormone 0.683 uIU/ML Normal 0.358-3.740 10 Free T4 0.91 ng/dL Normal 0.76-1.46 11 D-Dimer Quant < 270 ng/ml Normal <500 Coronavirus 2019 Nasopharygeal 03/10/2020 Patient S ervice [place], [place] 2793383 [phone] Coronavirus 2019 Nasopharygeal This nucleic aci <SEE N OTE> 12 Coronavirus 2019 Nasopharygeal 02/17/2020 Patient S [facility] [place] [address] [phone] Coronavirus 2019 Nasopharygeal This nucleic aci <SEE [...] 3 Troponin I Reference Interva l for [employer]: 99th Percentile= 0.00-0.045 ng/ml Risk Stratification: <= [...] (RI) NON-AMI < or = 5 N/A HRERERA ZONE > 5 < or = 4 AMI > 5 > 4 6 Troponin I Reference Interva l for [employer] [place]: 99th Percentile= 0.00-0.045 ng/ml Risk Stratification: <= [...] Little GFR Left ESRD GFR <15 on 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 Nucleic acid amplification tests include PCR and [...] detected) result in this assay. Performed at: [employer] [email or web address] [facility], [place], [place] [id number] Gem Technician: Pooja Vidal PhD, Phone: [phone] Not Detected 13 This nucleic acid amplificat ion test was developed and its performance characteristics determined by [employer]. Nucleic acid amplification tests include PCR and [...] detected) result in this assay. Performed at: [employer] [email or web address] [facility], [place], [place] [id number] Gem Technician: Pooja Vidal PhD, Phone: [phone] Not Detected Procedures Description No Information Available [...]
--- OUTSIDE RECORDS SUMMARY | 2020-05-03 21:29 | CCD ---
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 the Food and Drug Administration. Erythrocytes [#/volume] in Blood by Automated count 4.85 x10E6/uL 4.1 4-5.80 [facility] ([facility] Test(s) 986319-Apskugd B6 was developed and its performance characteristics determined by [facility]. It has not been cleared or approved by the Food and Drug Administration. Hemoglobin [Mass/volume] in Blood 14.2 g/dL 13.0-17.7 [facility] ([facility] Test(s) 827377-Tdsvegk B6 was developed and its performance characteristics determined by [facility]. It has not been cleared or approved by the Food and Drug Administration. Erythrocyte mean corpuscular volume [Entitic volume] by Auto mated count 89 fL 79-97 [facility] ([facility] Test(s) 292743-Xdnenir B6 was developed and its performance characteristics determined by [facility]. It has not been cleared or approved by the Food and Drug Administration. Erythrocyte mean corpuscular hemoglobin [Entitic mass] by Automated count 29.3 pg 26.6-33.0 [facility] ([facility] Test(s) 338117-Bopbabs B6 was developed and its performance characteristics determined by [facility]. It has not been cleared or approved by the Food and Drug Administration. Hematocrit [Volume Fraction] of Blood by Automated count 43.1 % 3 7.5-51.0 [facility] ([facility] Test(s) 267002-Vmwaplu B6 was developed and its performance characteristics determined by [facility]. It has not been cleared or approved by the Food and Drug Administration. Erythrocyte distribution width [Ratio] by Automated count 12.9 % 11.6-15.4 [facility] ([facility] Test(s) 900089-Abvyqgb B6 was developed and its performance characteristics determined by [facility]. It has not been cleared or approved by the Food and Drug Administration. Erythrocyte mean corpuscular hemoglobin concentration [Mass/volume] by Automated count 32.9 g/dL 31.5-35.7 [facility] ([facility] Test(s) 227870-Vncoatl B6 was developed and its performance characteristics determined by [facility]. It has not been cleared or approved by the Food and Drug Administration. Platelets [#/volume] in Blood by Automated count 236 x10E3/uL 150-450 [facility] ([facility] Test(s) 156986-Zqqxurt B6 was developed and its performance characteristics determined by [facility]. It has not been cleared or approved by the Food and Drug Administration. Lymphocytes/100 leukocytes in Blood by Automated count 26 % [facility] ([facility] Test(s) 536043-Uwnoeqo B6 was developed and its performance characteristics determined by [facility]. It has not been cleared or approved by the Food and Drug Administration. Neutrophils 61 % [facility] ([facility] Test(s) 594688-Czlgxpw B6 was developed and its performance characteristics determined by [facility]. It has not been cleared or approved by the Food and Drug Administration. Monocytes/100 leukocytes in Blood by Automated count 10 % [facility] ([facility] Test(s) 972561-Mhnhaar B6 was developed and its performance characteristics determined by [facility]. It has not been cleared or approved by the Food and Drug Administration. Eosinophils/100 leukocytes in Blood by Automated count 1 % [facility] ([facility] Test(s) 146538-Dgaxjaa B6 was developed and its performance characteristics determined by [facility]. It has not been cleared or approved by the Food and Drug Administration. Immature cells [#/volume] in Blood Laboratory test result [facility] ([facility] Test(s) 837379-Ashcwph B6 was developed and its performance characteristics determined by [facility]. It has not been cleared or approved by the Food and Drug Administration. Neutrophils [#/volume] in Blood by Automated count 4.6 x10E3/uL 1.4-7 .0 [facility] ([facility] Test(s) 033461-Mxjkmqf B6 was developed and its performance characteristics determined by [facility]. It has not been cleared or approved by the Food and Drug Administration. Basophils/100 leukocytes in Blood by Automated count 1 % [facility] ([facility] Test(s) 605441-Nggshqk B6 was developed and its performance characteristics determined by [facility]. It has not been cleared or approved by the Food and Drug Administration. Lymphocytes [#/volume] in Blood 2.0 x10E3/uL 0.7-3.1 [facility] ([facility] Test(s) 209771-Lwqzbhl B6 was developed and its performance characteristics determined by [facility]. It has not been cleared or approved by the Food and Drug Administration. Monocytes [#/volume] in Blood 0.8 x10E3/uL 0.1-0.9 [facility] ([facility] Test(s) 503233-Fonxiya B6 was developed and its performance characteristics determined by [facility]. It has not been cleared or approved by the Food and Drug Administration. Basophils [#/volume] in Blood by Automated count 0.1 x10E3/uL 0.0-0.2 [facility] ([facility] Test(s) 352727-Jasbxsf B6 was developed and its performance characteristics determined by [facility]. It has not been cleared or approved by the Food and Drug Administration. Eosinophils [#/volume] in Blood by Automated count 0.1 x10E3/uL 0.0-0 .4 [facility] ([facility] Test(s) 954306-Qxuqhaf B6 was developed and its performance characteristics determined by [facility]. It has not been cleared or approved by the Food and Drug Administration. Nucleated erythrocytes/100 leukocytes [Ratio] in Blood by Automated count Laboratory test result [facility] ([facility] Test(s) 007876-Vzdwiss B6 was developed and its performance characteristics determined by [facility]. It has not been cleared or approved by the Food and Drug Administration. Immature granulocytes/100 leukocytes in Blood by Automated count 1 % [facility] ([facility] Test(s) 059394-Egyyevw B6 was developed and its performance characteristics determined by [facility]. It has not been cleared or approved by the Food and Drug Administration. Immature granulocytes [#/volume] in Blood by Automated count 0.1 x10E3/uL 0.0-0.1 [facility] ([facility] Test(s) 548812-Fqaxugj B6 was developed and its performance characteristics determined by [facility]. It has not been cleared or approved by the Food and Drug Administration. Morphology [Interpretation] in Blood Narrative Laboratory test result [facility] ([facility] Test(s) 036139-Lkphobi B6 was developed and its performance characteristics determined by [facility]. It has not been cleared or approved by the Food and Drug Administration. ID Date Data Source [id number] 04/27/2020 02:00:00 PM EST [facility] ([facility] Name Value Range Interpretation Code Description Data Silvia rce(s) Supporting Document(s) Erythrocyte sedimentation rate by 2H Westergren method 20 mm/hr 0-3 0 [facility] ([facility] Test(s) 887916-Ongpzuq B6 was developed and its performance characteristics determined by [facility]. It has not been cleared or approved by the Food and Drug Administration. ID Date Data Source [id number] 04/27/2020 02:00:00 PM EST [facility] ([facility] Name Value Range Interpretation Code Description Data Silvia rce(s) Supporting Document(s) Rheumatoid factor [Units/volume] in Serum or Plasma Laborato ry test result 0.0-13.9 [facility] ([facility] Test(s) 493332-Fcpkexh B6 was developed and its performance characteristics determined by [facility]. It has not been cleared or approved by the Food and Drug Administration. ID Date Data Source [id number] 04/27/2020 02:00:00 PM EST [facility] ([facility] Name Value Range Interpretation Code Description Data Silvia rce(s) Supporting Document(s) Thyrotropin [Units/volume] in Serum or Plasma 0.862 uIU/mL 0.450-4.50 0 [facility] ([facility] Test(s) 601814-Xzqrbtm B6 was developed and its performance characteristics determined by [facility]. It has not been cleared or approved by the Food and Drug Administration. ID Date Data Source [id number] 04/27/2020 02:00:00 PM EST [facility] ([facility] Name Value Range Interpretation Code Description Data Silvia rce(s) Supporting Document(s) Calcidiol [Mass/volume] in Serum or Plasma 35.3 ng/mL 30.0-100.0 [facility] ([facility] Test(s) 272735-Iftwnqe B6 was developed and its performance characteristics determined by [facility]. It has not been cleared or approved by the Food and Drug Administration. Thiamine [Mass/volume] in Blood 125.6 nmol/L 66.5-200.0 [facility] ([facility] Test(s) 295944-Ycnfwwc B6 was developed and its performance characteristics determined by [facility]. It has not been cleared or approved by the Food and Drug Administration. ID Date Data Source [id number] 04/27/2020 02:00:00 PM EST [facility] ([facility] Name Value Range Interpretation Code Description Data Silvia rce(s) Supporting Document(s) Cobalamin (Vitamin B12) [Mass/volume] in Serum or Plasma 320 pg/mL 2 32-1245 [facility] ([facility] Test(s) 132485-Cswupej B6 was developed and its performance characteristics determined by [facility]. It has not been cleared or approved by the Food and Drug Administration. Folate (Folic Acid), Serum 16.0 ng/mL [facility] ([facility] Test(s) 393496-Gixveos B6 was developed and its performance characteristics determined by [facility]. It has not been cleared or approved by the Food and Drug Administration. ID Date Data Source [id number] 04/27/2020 02:00:00 PM EST [facility] ([facility] Name Value Range Interpretation Code Description Data Silvia rce(s) Supporting Document(s) Pyridoxine [Mass/volume] in Serum or Plasma 32.7 ug/L 5.3-46.7 [facility] ([facility] Test(s) 080058-Sgiwonm B6 was developed and its performance characteristics determined by [facility]. It has not been cleared or approved by the Food and Drug Administration. Thyroxine (T4) free [Mass/volume] in Serum or Plasma 1.09 ng/dL 0.82- 1.77 [facility] ([facility] Test(s) 890438-Gswnkqw B6 was developed and its performance characteristics determined by [facility]. It has not been cleared or approved by the Food and Drug Administration. Alpha tocopherol [Mass/volume] in Serum or Plasma 10.8 mg/L 7.0-25.1 [facility] ([facility] Test(s) 396397-Nytyunc B6 was developed and its performance characteristics determined by [facility]. It has not been cleared or approved by the Food and Drug Administration. ID Date Data Source [id number] 04/27/2020 02:00:00 PM EST [facility] ([facility] Name Value Range Interpretation Code Description Data Silvia rce(s) Supporting Document(s) Glucose [Mass/volume] in Serum or Plasma 108 mg/dL 65-99 [facility] ([facility] Test(s) 786236-Prophyu B6 was developed and its performance characteristics determined by [facility]. It has not been cleared or approved by the Food and Drug Administration. Creatinine [Mass/volume] in Serum or Plasma 0.78 mg/dL 0.76-1.27 [facility] ([facility] Test(s) 698645-Hgirwpi B6 was developed and its performance characteristics determined by [facility]. It has not been cleared or approved by the Food and Drug Administration. Urea nitrogen [Mass/volume] in Serum or Plasma 13 mg/dL 6-24 [facility] ([facility] Test(s) 841177-Nvyfqbk B6 was developed and its performance characteristics determined by [facility]. It has not been cleared or approved by the Food and Drug Administration. eGFR If NonAfricn Am 103 mL/min/1.73 [facility] ([facility] Test(s) 468176-Wbxgded B6 was developed and its performance characteristics determined by [facility]. It has not been cleared or approved by the Food and Drug Administration. eGFR If Africn Am 119 mL/min/1.73 [facility] ([facility] Test(s) 863101-Fciglul B6 was developed and its performance characteristics determined by [facility]. It has not been cleared or approved by the Food and Drug Administration. Sodium [Moles/volume] in Serum or Plasma 143 mmol/L 134-144 [facility] ([facility] Test(s) 647791-Vtssacg B6 was developed and its performance characteristics determined by [facility]. It has not been cleared or approved by the Food and Drug Administration. Potassium [Moles/volume] in Serum or Plasma 4.2 mmol/L 3.5-5.2 [facility] ([facility] Test(s) 646733-Xnfbndu B6 was developed and its performance characteristics determined by [facility]. It has not been cleared or approved by the Food and Drug Administration. Urea nitrogen/Creatinine [Mass Ratio] in Serum or Plasma 17 9 -20 [facility] ([facility] Test(s) 374914-Ftuyguh B6 was developed and its performance characteristics determined by [facility]. It has not been cleared or approved by the Food and Drug Administration. Chloride [Moles/volume] in Serum or Plasma 103 mmol/L 96-106 [facility] ([facility] Test(s) 324687-Beshlpk B6 was developed and its performance characteristics determined by [facility]. It has not been cleared or approved by the Food and Drug Administration. Carbon dioxide, total [Moles/volume] in Serum or Plasma 25 mmol/L 20 -29 [facility] ([facility] Test(s) 957399-Gtdsblh B6 was developed and its performance characteristics determined by [facility]. It has not been cleared or approved by the Food and Drug Administration. Albumin [Mass/volume] in Serum or Plasma 4.3 g/dL 3.8-4.9 [facility] ([facility] Test(s) 150335-Zulnmqh B6 was developed and its performance characteristics determined by [facility]. It has not been cleared or approved by the Food and Drug Administration. Calcium [Mass/volume] in Serum or Plasma 9.5 mg/dL 8.7-10.2 [facility] ([facility] Test(s) 493309-Uuskhfo B6 was developed and its performance characteristics determined by [facility]. It has not been cleared or approved by the Food and Drug Administration. Protein, Total 7.0 g/dL 6.0-8.5 [facility] ([facility] Test(s) 394984-Aqowpon B6 was developed and its performance characteristics determined by [facility]. It has not been cleared or approved by the Food and Drug Administration. Globulin [Mass/volume] in Serum by calculation 2.7 g/dL 1.5-4.5 [facility] ([facility] Test(s) 880007-Vdlsaue B6 was developed and its performance characteristics determined by [facility]. It has not been cleared or approved by the Food and Drug Administration. Albumin/Globulin [Mass Ratio] in Serum or Plasma 1.6 1.2-2.2 [facility] ([facility] Test(s) 470372-Rwwxvhm B6 was developed and its performance characteristics determined by [facility]. It has not been cleared or approved by the Food and Drug Administration. Bilirubin.total [Mass/volume] in Serum or Plasma 0.3 mg/dL 0.0-1.2 [facility] ([facility] Test(s) 581158-Gupskym B6 was developed and its performance characteristics determined by [facility]. It has not been cleared or approved by the Food and Drug Administration. Aspartate aminotransferase [Enzymatic activity/volume] in Serum or Plasma 22 IU/L 0-40 [facility] ([facility] Test(s) 193893-Mthfqli B6 was developed and its performance characteristics determined by [facility]. It has not been cleared or approved by the Food and Drug Administration. Alkaline phosphatase [Enzymatic activity/volume] in Serum or Plasma 59 IU/L 39-117 [facility] ([facility] Test(s) 550685-Tqqdtmi B6 was developed and its performance characteristics determined by [facility]. It has not been cleared or approved by the Food and Drug Administration. Alanine aminotransferase [Enzymatic activity/volume] in Seru m or Plasma 37 IU/L 0-44 [facility] ([facility] Test(s) 005659-Mgtgngh B6 was developed and its performance characteristics determined by [facility]. It has not been cleared or approved by the Food and Drug Administration. ID Date Data Source [id number] 04/27/2020 02:00:00 PM EST [facility] ([facility] Name Value Range Interpretation Code Description Data Silvia rce(s) Supporting Document(s) Lyme IgG/IgM Ab Laboratory test result 0.00-0.90 [facility] ([facility] Test(s) 686574-Cdimatm B6 was developed and its performance characteristics determined by [facility]. It has not been cleared or approved by the Food and Drug Administration. Borrelia burgdorferi IgM Ab [Units/volume] in Serum Laborato ry test result 0.00-0.79 [facility] ([facility] Test(s) 360082-Vpckcyl B6 was developed and its performance characteristics determined by [facility]. It has not been cleared or approved by the Food and Drug Administration. ID Date Data Source [id number] 04/27/2020 02:00:00 PM EST [facility] ([facility] Name Value Range Interpretation Code Description Data Silvia rce(s) Supporting Document(s) Nuclear Ab [Titer] in Serum by Immunofluorescence Laboratory test res ult [facility] ([facility] Test(s) 645295-Krsgbeq B6 was developed and its performance characteristics determined by [facility]. It has not been cleared or approved by the Food and Drug Administration. ID Date Data Source [id number] 04/27/2020 02:00:00 PM EST [facility] ([facility] Name Value Range Interpretation Code Description Data Silvia rce(s) Supporting Document(s) Vitamin E(Gamma Tocopherol) 1.4 mg/L 0.5-5.5 [facility] ([facility] Test(s) 275552-Ahxxrlk B6 was developed and its performance characteristics determined by [facility]. It has not been cleared or approved by the Food and Drug Administration. ID Date Data Source [id number] 04/28/2020 07:05:00 AM EST [facility] Name Value Range Interpretation Code Description Data Silvia rce(s) Supporting Document(s) WBC 7.4 x10E3/uL 3.4-10.8 [facility] RBC 4.85 x10E6/uL 4.14-5.80 [facility] Hemoglobin 14.2 g/dL 13.0-17.7 [facility] Hematocrit 43.1 % 37.5-51.0 [facility] MCV 89 fL 79-97 [facility] MCH 29.3 pg 26.6-33.0 [facility] MCHC 32.9 g/dL 31.5-35.7 [facility] RDW 12.9 % 11.6-15.4 [facility] Platelets 236 x10E3/uL 150-450 [facility] Neutrophils 61 % Not Estab. [facility] Lymphs 26 % Not Estab. [facility] Monocytes 10 % Not Estab. [facility] Eos 1 % Not Estab. [facility] Basos 1 % Not Estab. [facility] Neutrophils (Absolute) 4.6 x10E3/uL 1.4-7.0 [facility] orp Lymphs (Absolute) 2.0 x10E3/uL 0.7-3.1 [facility] Monocytes(Absolute) 0.8 x10E3/uL 0.1-0.9 [facility] Eos (Absolute) 0.1 x10E3/uL 0.0-0.4 [facility] Baso (Absolute) 0.1 x10E3/uL 0.0-0.2 [facility] Immature Granulocytes 1 % Not Estab. [facility] Immature Grans (Abs) 0.1 x10E3/uL 0.0-0.1 [facility] ID Date Data Source [id number] 04/28/2020 08:08:00 AM EST [facility] Name Value Range Interpretation Code Description Data Silvia rce(s) Supporting Document(s) T4,Free(Direct) 1.09 ng/dL 0.82-1.77 [facility] ID Date Data Source [id number] 04/28/2020 09:06:00 AM EST [facility] Name Value Range Interpretation Code Description Data Silvia rce(s) Supporting Document(s) Glucose 108 mg/dL 65-99 Above high normal [facility] BUN 13 mg/dL 6-24 [facility] Creatinine 0.78 mg/dL 0.76-1.27 [facility] eGFR If NonAfricn Am 103 mL/min/1.73 >59 [facility] eGFR If Africn Am 119 mL/min/1.73 >59 [facility] p BUN/Creatinine Ratio 17 9-20 [facility] Sodium 143 mmol/L 134-144 [facility] Potassium 4.2 mmol/L 3.5-5.2 [facility] Chloride 103 mmol/L 96-106 [facility] Carbon Dioxide, Total 25 mmol/L 20-29 [facility] Calcium 9.5 mg/dL 8.7-10.2 [facility] Protein, Total 7.0 g/dL 6.0-8.5 [facility] Albumin 4.3 g/dL 3.8-4.9 [facility] Globulin, Total 2.7 g/dL 1.5-4.5 [facility] A/G Ratio 1.6 1.2-2.2 [facility] Bilirubin, Total 0.3 mg/dL 0.0-1.2 [facility] Alkaline Phosphatase 59 IU/L 39-117 [facility] AST (SGOT) 22 IU/L 0-40 [facility] ALT (SGPT) 37 IU/L 0-44 [facility] ID Date Data Source [id number] 04/28/2020 02:06:00 PM EST [facility] Name Value Range Interpretation Code Description Data Silvia rce(s) Supporting Document(s) Lyme IgG/IgM Ab 0.00-0.90 [facility] Negative <0.91 Equivocal 0.91 - 1.09 Positive >1.09 Lyme Disease Ab, Quant, IgM 0.00-0.79 [facility] Negative <0.80 Equivocal 0.80 - 1.19 Positive >1.19 IgM levels may peak at 3-6 weeks post infection, then gradually decline. ID Date Data Source [id number] 04/28/2020 03:06:00 PM EST [facility] Name Value Range Interpretation Code Description Data Silvia rce(s) Supporting Document(s) Vitamin B12 320 pg/mL 232-1245 [facility] Folate (Folic Acid), Serum 16.0 ng/mL >3.0 [facility] A serum folate concentration of less brent n 3.1 ng/mL isconsidered to represent clinical deficiency. ID Date Data Source [id number] 04/28/2020 11:05:00 PM EST [facility] Name Value Range Interpretation Code Description Data Silvia rce(s) Supporting Document(s) Antinuclear Antibodies, IFA Negative [facility] Negative <1:80 Borderline 1:80 Positive >1:80 ID Date Data Source [id number] 05/01/2020 07:05:00 PM EST [facility] Name Value Range Interpretation Code Description Data Silvia rce(s) Supporting Document(s) Vitamin B6 32.7 ug/L 5.3-46.7 [facility] ID Date Data Source [id number] 05/02/2020 03:05:00 PM EST [facility] Name Value Range Interpretation Code Description Data Silvia rce(s) Supporting Document(s) Vitamin E(Alpha Tocopherol) 10.8 mg/L 7.0-25.1 [facility] Vitamin E(Gamma Tocopherol) 1.4 mg/L 0.5-5.5 [facility] Reference intervals for alpha and gamma- tocopherol determined from[facility] [place] [facility] and Nutrition Examination Survey, 8913-0384.Individuals with alpha- tocopherol levels less than 5.0 mg/L areconsidered vitamin E deficient. ID Date Data Source [id number] 04/28/2020 08:08:00 AM EST [facility] Name Value Range Interpretation Code Description Data Silvia rce(s) Supporting Document(s) TSH 0.862 uIU/mL 0.450-4.500 [facility] ID Date Data Source [id number] 05/02/2020 03:05:00 PM EST [facility] Name Value Range Interpretation Code Description Data Silvia rce(s) Supporting Document(s) Vit. B1, Whole Blood 125.6 nmol/L 66.5-200.0 [facility] ID Date Data Source [id number] 04/28/2020 08:08:00 AM EST [facility] Name Value Range Interpretation Code Description Data Silvia rce(s) Supporting Document(s) RA Latex Turbid. 0.0-13.9 [facility] ID Date Data Source [id number] 04/28/2020 08:08:00 AM EST [facility] Name Value Range Interpretation Code Description Data Silvia rce(s) Supporting Document(s) Vitamin D, 25-Hydroxy 35.3 ng/mL 30.0-100.0 [facility] Vitamin D deficiency has been defined by the [place] [employer] and an Endocrine Society practice guideline as alevel of serum 25-OH vitamin D less than 20 ng/mL (1,2).The Endocrine Society went on to further define vitamin Dinsufficiency as a level between 21 and 29 ng/mL (2).1. IOM ([place] [employer]). 2010. Dietary reference intakes for calcium and D. [place]: The National Academies Press.2. Alonzo MF, Yung NC, Liliya CROW, et al. Evaluation, treatment, and prevention of vitamin D deficiency: an Endocrine Society clinical practice guideline. JCEM. 2010; 96(6):2571-30. ID Date Data Source [id number] 04/28/2020 08:08:00 AM EST [facility] Name Value Range Interpretation Code Description Data Silvia rce(s) Supporting Document(s) Sedimentation Rate-Westergren 20 mm/hr 0-30 [facility] ID Date Data Source [id number] 04/27/2020 02:00:00 PM EST [facility] ([facility] Name Value Range Interpretation Code Description Data Silvia rce(s) Supporting Document(s) Thyroxine (T4) free [Mass/volume] in Serum or Plasma 1.09 ng/dL 0.82- 1.77 [facility] ([facility] ID Date Data Source [id number] 03/10/2020 01:10:00 PM EST [facility] ([facility] Name Value Range Interpretation Code Description Data [facility] rce(s) Supporting Document(s) Amphetamines Level Urine Laboratory test result [facility] ([facility] Barbiturates Urine Laboratory test result [facility] ([facility] Benzodiazepines Urine Laboratory test result [facility] Cocaine Metabolite Urine Laboratory test result [facility] Methadone Urine Laboratory test result [facility] Cannabinoids Urine Laboratory test result [facility] Opiates Urine Laboratory test result [facility] Phencyclidine Urine Laboratory test result [facility] ([facility] ALL PRESUMPTIVE POSITIVE FINDINGS AR E UNCONFIRMED THRESHOLD IN NG/ML AMPHETAMINES/METHAMPHET 1000 BARBITURATES [...] CLOSELY RELATED COMPOUNDS PLEASE CALL THE LAB. ID Date Data Source [id number] 03/10/2020 01:01:00 PM EST [facility] ([facility] Name Value Range Interpretation Code Description Data Silvia rce(s) Supporting Document(s) CPK Creatine Phosphokinase 98 U/L 39-308 [facility] CK-MB Value Mass 2.3 ng/mL [facility] MB/CK Relative Index 2.35 [facility] ([facility] <content>DIAGNOSIS CRITERIA</content>
<content>MMB ng/ml Relative Index (RI)</content>
<content>NON-AMI < or = 5 N/A</content>
<content>HERRERA ZONE > 5 < or = 4</content>
<content>AMI > 5 > 4</content>
<content></content> Troponin I Laboratory test result [facility] ([facility] <content>Troponin I Reference Interval f or Siemens [place] LOCI:</content>
<content></content>
<content>99th Percentile= 0.00-0.045 ng/ml</content>
<content></content>
<content>Risk Stratification:</content>
<content><= 0.10 ng/ml Decreased Risk for Adverse Clinical</content>
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 2.0-10.0 [facility] EOS % 2.2 % 0-5.0 [facility] BASO % 0.7 % 0.0-2.0 [facility] GRAN # 4.4 K/mm3 2.0-8.00 [facility] IG# 0.0 K/mm3 0.0-0.2 [facility] LYMPH # 1.9 K/mm3 1.0-5.0 [facility] MONO # 0.5 K/mm3 0.10-1.20 [facility] EOS # 0.2 K/mm3 0.0-0.5 [facility] BASO # 0.1 K/mm3 0.0-0.2 [facility] Procedure Social History Code Duration Value Status Description Data Source(s ) Smoking 04/27/2020 12:00:00 AM EST - 03/19/1990 12:00:00 AM EST Patient is a former smoker completed Patient is a former smoker [facility] Smoking 02/11/2020 12:00:00 AM EST Patient is a former smoker completed Patient is a former smoker [facility] ([facility]) Vital Signs ID Date Data Source [id number] Name Value Range Interpretation Code Description Data Source(s) Body mass index (BMI) [Ratio] 35.7 kg/m2 35.7 k g/m2 [facility] [place] body weight 184 [lb_av] 184 [lb_av] [facility] T ([facility] Oxygen saturation in Arterial blood by Pulse oximetry 98 % 98 % [facility] ([facility] Body weight 270.50 [lb_av] 270.50 [lb_av] [facility] T ([facility] Body height 73 [in_i] 73 [in_i] [facility] 6'1" Respiratory rate 16 /min 16 /min [facility] ( [facility] Body temperature 97.4 [degF] 97.4 [degF] [facility] Heart rate 75 /min 75 /min [facility] Diastolic blood pressure 69 mm[Hg] 69 mm[Hg] [facility] Systolic blood pressure 129 mm[Hg] 129 mm[Hg] M ED[facility] ([facility] Diastolic blood pressure--supine 85 mm[Hg] 85 mm[Hg] [facility] ([facility]) Ra Systolic blood pressure--supine 142 mm[Hg] 142 mm[Hg] [facility] ([facility]) Ra Diastolic blood pressure--sitting 80 mm[Hg] 80 mm[Hg] [facility] ([facility]) large cuff, Ra; 134/82 [place] Systolic blood pressure--sitting 133 mm[Hg] 133 mm[Hg] [facility] ([facility]) large cuff, Ra; 134/82 [place] Respiratory rate 16 /min 16 /min [facility] ( [facility]) Heart rate 72 /min 72 /min [facility] ([facility]) regular Body mass index (BMI) [Ratio] 36.5 kg/m2 36.5 k g/m2 [facility] ([facility]) Body height 72 [in_i] 72 [in_i] [facility]) 6'0" Body weight 269.00 [lb_av] 269.00 [lb_av] [facility] T ([facility]) Systolic blood pressure 133 mm[Hg] 133 mm[Hg] M [facility] ([facility] Body mass index (BMI) [Ratio] 35.8 kg/m2 35.8 k g/m2 [facility] [place] body weight 184 [lb_av] 184 [lb_av] [facility] ([facility] Oxygen saturation in Arterial blood by Pulse oximetry 97 % 97 % [facility] ([facility] Body weight 271.38 [lb_av] 271.38 [lb_av] [facility] ([facility] Body height 73 [in_i] 73 [in_i] [facility] 6'1" Respiratory rate 20 /min 20 /min [facility] ( [facility] Body temperature 97.1 [degF] 97.1 [degF] [facility] ([facility] Heart rate 75 /min 75 /min [facility] ([facility] Diastolic blood pressure 78 mm[Hg] 78 mm[Hg] [facility] Body mass index (BMI) [Ratio] 36.7 kg/m2 36.7 k g/m2 [facility] [place] body weight 184 [lb_av] 184 [lb_av] [facility] ([facility] Oxygen saturation in Arterial blood by Pulse oximetry 97 % 97 % [facility] Body weight 278.00 [lb_av] 278.00 [lb_av] [facility] ([facility] Body height 73 [in_i] 73 [in_i] [facility] 6'1" Respiratory rate 16 /min 16 /min [facility] ( [facility] Body temperature 98.2 [degF] 98.2 [degF] [facility] ([facility] Heart rate 75 /min 75 /min [facility] ([facility] Diastolic blood pressure 72 mm[Hg] 72 mm[Hg] [facility] ([facility] Systolic blood pressure 119 mm[Hg] 119 mm[Hg] [facility] Body weight 124.286 kg 124.286 kg [facility] Body mass index (BMI) [Ratio] 37.2 kg/m2 37.2 k g/m2 [facility] ([facility]) Body weight 274.00 [lb_av] 274.00 [lb_av] [facility] T ([facility]) Body height 72 [in_i] 72 [in_i] [facility] ([facility]) 6'0" Diastolic blood pressure 82 mm[Hg] 82 mm[Hg] [facility] ([facility]) Systolic blood pressure 122 mm[Hg] 122 mm[Hg] [facility] Body mass index (BMI) [Ratio] 36.7 kg/m2 36.7 k g/m2 [facility] [place] body weight 184 [lb_av] 184 [lb_av] [facility] ([facility] Oxygen saturation in Arterial blood by Pulse oximetry 96 % 96 % [facility] ([facility] Body weight 278.00 [lb_av] 278.00 [lb_av] [facility] ([facility] Body height 73 [in_i] 73 [in_i] [facility] ([facility] 6'1" Respiratory rate 16 /min 16 /min [facility] ( [facility] Body temperature 98.1 [degF] 98.1 [degF] [facility] ([facility] Heart rate 80 /min 80 /min [facility] ([facility] Diastolic blood pressure 69 mm[Hg] 69 mm[Hg] [facility] ([facility] Systolic blood pressure 132 mm[Hg] 132 mm[Hg] [facility] ([facility]
[2020-05-03] MEDS ORDERED: D31000TA2 PO (22:24)
[2020-05-03] MEDS ORDERED: ZINC220CA PO (22:24)
--- NOTE | 2020-05-03 23:26 | REPVR ---
PROCEDURE INFORMATION: "STROKE PROTOCOL" Exam: CT Head without Contrast Exam date and time: 05/03/20 (11:13pm) Age: 54 years old Clinical indication: Facial weakness. CVA. TECHNIQUE: Imaging protocol: Computed tomography of the head without contrast. Radiation optimization: All CT scans at this facility use at least one of these dose optimization techniques: automated exposure control; mA and/or kV adjustment per patient size (includes targeted exams where dose is matched to clinical indication); or iterative reconstruction. Other technique: STROKE PROTOCOL was implemented. COMPARISON: CT HEAD of 07/08/19 FINDINGS: Brain: Mild age-appropriate atrophic changes. No acute hemorrhage. No mass effect. Cerebral ventricles: No ventriculomegaly. Bones/joints: Unremarkable. No acute fracture. Paranasal sinuses: Visualized sinuses are unremarkable. No air-fluid levels. Mastoid air cells: Visualized mastoid air cells are well aerated. Soft tissues: Unremarkable. IMPRESSION: No acute intracranial pathology is appreciated. ASSESSMENT: ASPECTS (Araceli Stroke Program Early CT Score) is 10. Electronically signed by: Jeanette Hooper On 05/03/2020 23:26:43 PM
[2020-05-03 23:50] LABS: INR 0.96
[2020-05-03 23:51] LABS: PARTIAL THROMBOPLASTIN TIME 25.8 SECONDS (24.2-38.5)
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
[2020-05-03] MEDS ORDERED: ISOVUE-370 76% 100ML VIAL As Ordered ONE (23:56)
[2020-05-04 00:08] LABS: CK-MB VALUE MASS 2.5 NG/ML (<3.6); CPK CREATINE PHOSPHOKINASE 130 U/L (39-308); MAGNESIUM LEVEL 2.2 MG/DL (1.8-2.4); MB/CK RELATIVE INDEX 1.92 (< OR =4); TROPONIN I < 0.02 NG/ML (< 0.10)
[2020-05-04 00:15] LABS: BASO # 0.1 10^3/uL (0.0-0.2); BASO % 0.7 % (0.0-1.0); EOS # 0.1 10^3/uL (0.0-0.5); EOS % 1.7 % (0.0-3.0); HEMATOCRIT 42.2 % (42.0-52.0); HEMOGLOBIN 13.6 g/dl (13.5-17.5); LYMPH # 1.7 10^3/uL (1.5-5.0); LYMPH % 23.3 % (24.0-44.0); MEAN CORPUSCULAR HEMOGLOBIN 29.3 pg (27.0-33.0); MEAN CORPUSCULAR HGB CONC 32.2 g/dl (32.0-36.5); MEAN CORPUSCULAR VOLUME 90.9 fl (80.0-96.0); MONO # 0.7 10^3/uL (0.0-0.8); MONO % 10.3 % (0.0-8.0); NEUTROPHILS # 4.5 10^3/uL (1.5-8.5); NEUTROPHILS % 63.3 % (36.0-66.0); PLATELET COUNT, AUTOMATED 218 10^3/uL (150-450); RED BLOOD COUNT 4.64 10^6/uL (4.30-6.10); WHITE BLOOD COUNT 7.1 10^3/uL (4.0-10.0)
--- NOTE | 2020-05-04 00:43 | REPVR ---
PROCEDURE INFORMATION: Exam: CT Angiography Neck With Contrast Exam date and time: 05/03/2020 12:15 AM Age: 54 years old Clinical indication: Weakness; Additional info: Right leg parethesia, right sided neck pain TECHNIQUE: Imaging protocol: Computed tomography angiography of the neck with intravenous contrast. 3D rendering (Not supervised by radiologist): MIP and/or 3D reconstructed images were created by the technologist. Radiation optimization: All CT scans at this facility use at least one of these dose optimization techniques: automated exposure control; mA and/or kV adjustment per patient size (includes targeted exams where dose is matched to clinical indication); or iterative reconstruction. Contrast material: ISOVUE 370; Contrast volume: 100 ml; Contrast route: INTRAVENOUS (IV); COMPARISON: CT ANGIO NECK 07/08/2019 1:18 PM FINDINGS: Right common carotid artery: No stenosis. No dissection or occlusion. Right internal carotid artery: No stenosis of the extracranial segment. No dissection or occlusion. Right external carotid artery: No occlusion or stenosis of the origin. Right vertebral artery: No stenosis. No dissection or occlusion. Left common carotid artery: No stenosis. No dissection or occlusion. Left internal carotid artery: No stenosis of the extracranial segment. No dissection or occlusion. Left external carotid artery: No occlusion or stenosis of the origin. Left vertebral artery: No stenosis. No dissection or occlusion. Bones/joints: No acute fracture. Soft tissues: Normal. No significant soft tissue swelling. IMPRESSION: No stenosis or occlusion. REFERENCES: NASCET CRITERIA. The degree of internal carotid artery stenosis is based on NASCET criteria. Normal is no stenosis. Mild is less than 50% stenosis. Moderate is 50-69% stenosis. Severe is 70% to 99% stenosis. Total occlusion is no detectable patent lumen. Electronically signed by: Joey Vela On 05/04/2020 00:44:06 AM
--- OUTSIDE RECORDS SUMMARY | 2020-05-04 00:48 | CCD | Continuity of Care Document ---
Author Author Bang SMITH Organization Unknown Address [address] [place] [address] Phone [phone] Care Team Providers Care Quality Control Coordinator Name Role Phone [facility] - Physical Therapist AUTM [phone] [facility]M Problems Active Problems [...] Flow Rate 576 Estimated Peak Flow Rate Maud Body Weight 184 lb BMI (Body Mass Index) 35.7 kg/m2 01/08/2020 10:39am BP Systolic 133 mmHg BP Diastolic 78 mmHg Heart Rate 75 /min Body Temperature 97.1 F Respiratory Rate 20 /min Height 73 inches 6'1" Weight 271.38 lb O2 % BldC Oximetry 97 % Peak Expiratory Flow Rate 576 Estimated Peak Flow Rate Maud Body Weight 184 lb BMI (Body Mass Index) 35.8 kg/m2 Results Test Acquired Date Facility Test Result H/L Range Note Vitamin E 04/27/[address] [facility] [address] [place] [phone] Vitamin E(Gamma Tocopherol) 1.4 mg/L 0.5- 5.5 1, 2 Laboratory test finding 04/27/[address] [facility] [address] [place] [address] [phone] Antinuclear Antibodies, Ifa Negative 3 Lyme AB/Line Blot Reflex 04/27/[address] [facility] [address] [place] [address] [phone] Lyme IgG/IgM Ab <0.91 ISR 0.00-0.90 4 Lyme Disease Ab, Quant, IgM <0.80 index 0.00-0.79 5 Metabolic Panel (14), Comprehensive 04/27/2020 [facility] [address] [place] [address] [phone] Glucose 108 mg/dL High 65-99 BUN 13 [...] IU/L 0-44 Laboratory test finding 04/27/[address] [facility] [address] [place] [address] [phone] Vitamin B6, Plasma 32.7 ug/L 5.3-46.7 Vitamin E(Alpha Tocopherol) 10.8 mg/L 7.0-25.1 Thyroxine (T4) Free, Direct, S 1.09 ng/dL 0.82-1.77 Vitamin B12 & Folate 04/27/[address] [facility] [address] [place] [address] [phone] Folate (Folic Acid), Serum 16.0 ng/mL >3.0 6 Vitamin B12 320 pg/mL [phone] Laboratory test finding 04/27/[address] [facility] [address] [place] [address] [phone] Vitamin D, 25-Hydroxy 35.3 ng/mL 30.0-100.0 7 Vitamin B1 (Thiamine), Blood 125.6 nmol/L 66.5-200.0 TSH And T4 Free (Channing) 04/27/[address] [facility] [address] [place] [address] [phone] TSH 0.862 uIU/mL 0.450-4.500 Laboratory test finding 04/27/[address] [facility] [address] [place] [address] [phone] Rheumatoid Arthritis Factor <10.0 IU/mL 0.0 -13.9 Laboratory test finding 04/27/[address] [facility] [address] [place], [place] [id number] [phone] Sedimentation Rate-Westergren 20 mm/hr 0- 30 CBC With Differential 04/27/[address] [address] [phone] WBC 7.4 x10E3/uL 3.4-10.8 RBC 4.85 x10E6/uL [...] TNP Coronavirus 2019 Nasopharygeal 03/10/[place] [address] [phone] Coronavirus 2019 Nasopharygeal This nucleic aci <SEE N OTE> 8 Laboratory test finding 03/10/2020 [place] [address] [phone] Magnesium Level 2.3 mg/dL Normal 1.8-2.4 9 Lipase 112 U/L Normal 73-393 10 Thyroid Stimulating Hormone 0.683 uIU/ML Normal 0.358-3.740 11 Free T4 0.91 ng/dL Normal 0.76-1.46 12 D-Dimer Quant < 270 ng/ml Normal <500 Basic Metabolic Profile 03/10/2020 [place] [address] [phone] Glucose, Fasting 109 mg/dL High 70-100 Blood Urea Nitrogen 11 mg/dL Normal 7-18 Creatinine For GFR 0.88 mg/dL Normal 0.70-1.30 Glomerular Filtration Rate > 60.0 Normal >56 1 3 Sodium Level 138 mEq/L Normal 136-145 Potassium Serum 4.4 mEq/L Normal 3.5-5.1 Chloride Level 103 mEq/L Normal 98-107 Carbon Dioxide Level 30 mEq/L Normal 21-32 Anion Gap 5 mEq/L Low 8-16 Calcium Level 9.2 mg/dL Normal 8.5-10.1 Liver Profile 03/10/2020 Patient Service [place] [id number] [phone] Ast/Sgot 23 U/L Normal 7-37 Alt/SGPT 56 U/L Normal 12-78 Alkaline Phosphatase 57 U/L Normal 45-117 Bilirubin,Total 0.4 mg/dL Normal 0.2-1.0 Bilirubin,Direct 0.1 mg/dL Normal 0.0-0.2 Total Protein 7.3 GM/DL Normal 6.4-8.2 Albumin 4.0 GM/DL Normal 3.2-5.2 Albumin/Globulin Ratio 1.2 Normal Cardiac Marker Panel 03/10/2020 Patient Service [facility] [place] [address] [phone] CPK Creatine Phosphokinase 113 U/L Normal 39-30 8 CK-MB Value Mass 1.7 NG/ML Normal <3.6 MB/CK Relative Index 1.50 Normal < Or =4 14 Troponin I < 0.02 NG/ML Normal < 0.10 15 Laboratory test finding 03/10/2020 [place] [address] [phone] Partial Thromboplastin Time 25.3 seconds Normal 24 .2-38.5 Prothrombin Time/Inr 03/10/2020 [place] [address] [phone] Prothrombin Time 13.2 seconds Normal 12.5-14.3 Inr 0.98 Normal 16 CBC With Differential 03/10/2020 Patient [place] [address] [phone] White Blood Count 7.1 10 Normal 4.0-10.0 [...] 36.0-66.0 Lymph % 25.2 % Normal 24.0-44.0 Moca % 9.5 % High 0.0-5.0 Eos % 1.1 % Normal 0.0-3.0 Baso % 0.7 % Normal 0.0-1.0 Immature Granulocyte % 0.4 % Normal 0-3.0 Nucleated Red Blood Cell % 0.0 % Normal 0-0 Neutrophils # 4.5 10 Normal 1.5-8.5 Lymph # 1.8 10 Normal 1.5-5.0 Moca # 0.7 10 Normal 0.0-0.8 Eos # 0.1 10 Normal 0.0-0.5 Baso # 0.1 10 Normal 0.0-0.2 Cardiac Marker Panel 03/10/2020 [place] [address] [phone] CPK Creatine Phosphokinase 98 U/L Normal 39-30 8 CK-MB Value Mass 2.3 NG/ML Normal <3.6 MB/CK Relative Index 2.35 Normal < Or =4 17 Troponin I < 0.02 NG/ML Normal < 0.10 18 Drug Eval Toxicology ED Only 03/10/2020 [place] [address] [phone] Amphetamines Level Urine NEGATIVE Normal Negativ e Barbiturates Urine NEGATIVE Normal Negative Benzodiazepines Urine NEGATIVE Normal Negative Cannabinoids Urine NEGATIVE Normal Negative Cocaine Metabolite Urine NEGATIVE Normal Negative Methadone Urine NEGATIVE Normal Negative Opiates Urine NEGATIVE Normal Negative Phencyclidine Urine NEGATIVE Normal Negative 19 Coronavirus 2019 Nasopharygeal 02/17/2020 [place] [address] [phone] Coronavirus 2019 Nasopharygeal This nucleic aci <SEE N OTE> 20 1 Test(s) 040212-[id number] B6 wa s developed and its performance characteristics determined by [facility]. It has not been cleared or approved by the Food and Drug Administration. 2 Reference intervals for alph a and gamma-tocopherol determined from National Health and Nutrition Examination Survey, 4123-6934. Individuals with alpha-tocopherol levels less than 5.0 mg/L are considered vitamin E deficient. 3 Negative <1:80 Borderline 1:80 Positive >1:80 4 Negative <0.91 Equivocal 0.91 - 1.09 Positive >1.09 5 Negative <0.80 Equivocal 0.80 - 1.19 Positive >1.19 IgM levels may peak at 3-6 weeks post infection, then gradually decline. 6 A serum folate concentration of less than 3.1 ng/mL is considered to represent clinical deficiency. 7 Vitamin D deficiency has bee n defined by the [employer] and an Endocrine Society practice guideline as a level of serum 25-OH vitamin D less than 20 ng/mL (1,2). The Endocrine Society went on to further define vitamin D insufficiency as a level between 21 and 29 ng/mL (2). 1. IOM ([employer]). 2010. Di etary reference intakes for calcium and D. [place]: The National Academies Press. 2. Alonzo MF, Yung NC, Bruce alvarez CROW, et al. Evaluation, treatment, and prevention of vitamin D deficiency: an Endocrine Society clinical practice guideline. JCEM. 2010; 96(7):1911-30. 8 This nucleic acid amplificat ion test was developed and its performance characteristics determined by [facility]. Nucleic acid amplification tests include PCR and [...] detected) result in this assay. Performed at: [facility] [address], [place], [place] [id number] Vinyl Hanger: Pooja Vidla PhD, Phone: [phone] Not Detected 9 COMMENT--- 10 COMMENT--- 11 COMMENT--- 12 COMMENT--- 13 Units are mL/min/1.73 m2 Chronic Kidney Disease Staging per NKF: Stage I & II GFR >=60 Normal to Mildly Decreased Stage III GFR 30-59 Moderately Decreased Stage IV GFR 15-29 Severely Decreased Stage V GFR <15 Very Little GFR Left ESRD GFR <15 on FINAL TESTER 14 DIAGNOSIS CRITERIA MMB ng/ml Relative Index (RI) NON-AMI < or = 5 N/A HERRERA ZONE > 5 < or = 4 AMI > 5 > 4 15 Troponin I Reference Interva l for [place] LOCI: 99th Percentile= 0.00-0.045 ng/ml Risk Stratification: <= 0.10 ng/ml Decreased Risk for Adverse Clinical Events. 0.10-1.50 ng/ml Increased Risk for Adv erse Clinical Events. Evaluation of additional criterion and/or repeat testing in 2-6 hours is suggested to rule out myocardial damage. >= 1.50 ng/ml Indicative of Myocardial Injury. 16 THERAPUTIC HUMAN INR VALUES INDICATIONS NORMAL RANGES PROPHYLAXIS/TREATMENT OF: VENOUS THROMBOSIS 2.0-3.0 PULMONARY EMBOLISM 2.0-3.0 PREVENTION OF SYSTEMIC EMBOLISM FROM: TISSUE HEART VALVES 2.0-3.0 ACUTE MYOCARDIAL INFARCTION 2.0-3.0 VALVULAR HEART DISEASE 2.0-3.0 ATRIAL FIBRILLATION 2.0-3.0 MECHANICAL VALVES(HIGH RISK) 2.5-3.5 RECURRENT MYOCARDIAL INFARCTION 2.5-3.5 17 DIAGNOSIS CRITERIA MMB ng/ml Relative Index (RI) NON-AMI < or = 5 N/A HERRERA ZONE > 5 < or = 4 AMI > 5 > 4 18 Troponin I Reference Interva l for [place] LOCI: 99th Percentile= 0.00-0.045 ng/ml Risk Stratification: <= 0.10 ng/ml Decreased Risk for Adverse Clinical Events. 0.10-1.50 ng/ml Increased Risk for Adv erse Clinical Events. Evaluation of additional criterion and/or repeat testing in 2-6 hours is suggested to rule out myocardial damage. >= 1.50 ng/ml Indicative of Myocardial Injury. 19 ALL PRESUMPTIVE POSITIVE FINDINGS ARE UNCONFIRMED THRESHOLD [...] CLOSELY RELATED COMPOUNDS PLEASE CALL THE LAB. 20 This nucleic acid amplificat ion test was developed and its performance characteristics determined by [facility]. Nucleic acid amplification tests include PCR and [...] detected) result in this assay. Performed at: [facility] [address] [facility], [place], [place] [id number] Vinyl Hanger: Pooja Vidal PhD, Phone: [phone] Not Detected Procedures Description No Information Available [...] J01.90 Acute sinusitis, unspecified Ple Kasie ybarra, LOCKST[employer] FR[employer] T[employer] SEWER 01/08/2020 M94.0 Chondrocostal junction syndrome [Tietze] Ines [...]
--- NOTE | 2020-05-04 00:49 | REPVR ---
PROCEDURE INFORMATION: Exam: CT Angiography Head With Contrast, Arteries Exam date and time: 05/03/2020 12:15 AM Age: 54 years old Clinical indication: Weakness; Additional info: CVA - nursing interventions must not delay CT TECHNIQUE: Imaging protocol: Computed tomography angiography of the head with intravenous contrast. 3D rendering (Not supervised by radiologist): MIP and/or 3D reconstructed images were created by the technologist. Radiation optimization: All CT scans at this facility use at least one of these dose optimization techniques: automated exposure control; mA and/or kV adjustment per patient size (includes targeted exams where dose is matched to clinical indication); or iterative reconstruction. Contrast material: ISOVUE 370; Contrast volume: 100 ml; Contrast route: INTRAVENOUS (IV); COMPARISON: No relevant prior studies available. FINDINGS: ANTERIOR CIRCULATION: Right internal carotid artery: Unremarkable. Intracranial segment is patent with no significant stenosis. No aneurysm. Right middle cerebral artery: Unremarkable. No occlusion or significant stenosis. No aneurysm. Right anterior cerebral artery: Unremarkable. No occlusion or significant stenosis. No aneurysm. Left internal carotid artery: Unremarkable. Intracranial segment is patent with no significant stenosis. No aneurysm. Left middle cerebral artery: Unremarkable. No occlusion or significant stenosis. No aneurysm. Left anterior cerebral artery: Unremarkable. No occlusion or significant stenosis. No aneurysm. POSTERIOR CIRCULATION: Right vertebral artery: Unremarkable. No occlusion or significant stenosis. No aneurysm. Left vertebral artery: Unremarkable. No occlusion or significant stenosis. No aneurysm. Basilar artery: Unremarkable. No occlusion or significant stenosis. No aneurysm. Right posterior cerebral artery: Unremarkable. No occlusion or significant stenosis. No aneurysm. Left posterior cerebral artery: Unremarkable. No occlusion or significant stenosis. No aneurysm. Brain: No definite mass, mass effect, or midline shift. Cerebral ventricles: No ventriculomegaly. Bones/joints: Unremarkable. No acute fracture. Soft tissues: Unremarkable. IMPRESSION: No large vessel stenosis or occlusion. Electronically signed by: Joey Vela On 05/04/2020 00:50:13 AM
--- OUTSIDE RECORDS SUMMARY | 2020-05-04 00:50 | CCD ---
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 determined by [facility]. It has not been cleared or approved by the Food and Drug Administration. Thiamine [Mass/volume] in Blood 125.6 nmol/L 66.5-200.0 [facility] ([facility] Test(s) 579750-Bzkpkqz B6 was developed and its performance characteristics determined by [facility]. It has not been cleared or approved by the Food and Drug Administration. ID Date Data Source [id number] 04/27/2020 02:00:00 PM EST [facility] ([facility] Name Value Range Interpretation Code Description Data [facility] rce(s) Supporting Document(s) Cobalamin (Vitamin B12) [Mass/volume] in Serum or Plasma 320 pg/mL 2 32-1245 [facility] ([facility] Test(s) 748647-Wwgkytl B6 was developed and its performance characteristics determined by [facility]. It has not been cleared or approved by the Food and Drug Administration. Folate (Folic Acid), Serum 16.0 ng/mL [facility] ([facility] Test(s) 586833-Mzvbzrz B6 was developed and its performance characteristics determined by [facility]. It has not been cleared or approved by the Food and Drug Administration. ID Date Data Source [id number] 04/27/2020 02:00:00 PM EST [facility] ([facility] Name Value Range Interpretation Code Description Data Silvia rce(s) Supporting Document(s) Pyridoxine [Mass/volume] in Serum or Plasma 32.7 ug/L 5.3-46.7 [facility] ([facility] Test(s) 236349-Pfdybys B6 was developed and its performance characteristics determined by [facility]. It has not been cleared or approved by the Food and Drug Administration. Thyroxine (T4) free [Mass/volume] in Serum or Plasma 1.09 ng/dL 0.82- 1.77 [facility] ([facility] Test(s) 106005-Ctcbfbl B6 was developed and its performance characteristics determined by [facility]. It has not been cleared or approved by the Food and Drug Administration. Alpha tocopherol [Mass/volume] in Serum or Plasma 10.8 mg/L 7.0-25.1 [facility] ([facility] Test(s) 156992-Uhitnkg B6 was developed and its performance characteristics determined by [facility]. It has not been cleared or approved by the Food and Drug Administration. ID Date Data Source [id number] 04/27/2020 02:00:00 PM EST [facility] ([facility] Name Value Range Interpretation Code Description Data Silvia rce(s) Supporting Document(s) Glucose [Mass/volume] in Serum or Plasma 108 mg/dL 65-99 [facility] ([facility] Test(s) 234359-Vshjyzd B6 was developed and its performance characteristics determined by [facility]. It has not been cleared or approved by the Food and Drug Administration. Creatinine [Mass/volume] in Serum or Plasma 0.78 mg/dL 0.76-1.27 [facility] ([facility] Test(s) 231100-Wumktbz B6 was developed and its performance characteristics determined by [facility]. It has not been cleared or approved by the Food and Drug Administration. Urea nitrogen [Mass/volume] in Serum or Plasma 13 mg/dL 6-24 [facility] ([facility] Test(s) 646092-Oybcgdw B6 was developed and its performance characteristics determined by [facility]. It has not been cleared or approved by the Food and Drug Administration. eGFR If NonAfricn Am 103 mL/min/1.73 [facility] ([facility] Test(s) 092218-Ipkkoxm B6 was developed and its performance characteristics determined by [facility]. It has not been cleared or approved by the Food and Drug Administration. eGFR If Africn Am 119 mL/min/1.73 [facility] ([facility] Test(s) 286824-Jnbwckn B6 was developed and its performance characteristics determined by [facility]. It has not been cleared or approved by the Food and Drug Administration. Sodium [Moles/volume] in Serum or Plasma 143 mmol/L 134-144 [facility] ([facility] Test(s) 148925-Eearjtj B6 was developed and its performance characteristics determined by [facility]. It has not been cleared or approved by the Food and Drug Administration. Potassium [Moles/volume] in Serum or Plasma 4.2 mmol/L 3.5-5.2 [facility] ([facility] Test(s) 464544-Rxeptdb B6 was developed and its performance characteristics determined by [facility]. It has not been cleared or approved by the Food and Drug Administration. Urea nitrogen/Creatinine [Mass Ratio] in Serum or Plasma 17 9 -20 [facility] ([facility] Test(s) 097857-Pswckwe B6 was developed and its performance characteristics determined by [facility]. It has not been cleared or approved by the Food and Drug Administration. Chloride [Moles/volume] in Serum or Plasma 103 mmol/L 96-106 [facility] ([facility] Test(s) 014957-Uakjgej B6 was developed and its performance characteristics determined by [facility]. It has not been cleared or approved by the Food and Drug Administration. Carbon dioxide, total [Moles/volume] in Serum or Plasma 25 mmol/L 20 -29 [facility] ([facility] Test(s) 830111-Cwpocmw B6 was developed and its performance characteristics determined by [facility]. It has not been cleared or approved by the Food and Drug Administration. Albumin [Mass/volume] in Serum or Plasma 4.3 g/dL 3.8-4.9 [facility] ([facility] Test(s) 054838-Ozlesvh B6 was developed and its performance characteristics determined by [facility]. It has not been cleared or approved by the Food and Drug Administration. Calcium [Mass/volume] in Serum or Plasma 9.5 mg/dL 8.7-10.2 [facility] ([facility] Test(s) 609366-Vmuhmgd B6 was developed and its performance characteristics determined by [facility]. It has not been cleared or approved by the Food and Drug Administration. Protein, Total 7.0 g/dL 6.0-8.5 [facility] ([facility] Test(s) 160097-Qkohxci B6 was developed and its performance characteristics determined by [facility]. It has not been cleared or approved by the Food and Drug Administration. Globulin [Mass/volume] in Serum by calculation 2.7 g/dL 1.5-4.5 [facility] ([facility] Test(s) 364514-Rcsitez B6 was developed and its performance characteristics determined by [facility]. It has not been cleared or approved by the Food and Drug Administration. Albumin/Globulin [Mass Ratio] in Serum or Plasma 1.6 1.2-2.2 [facility] ([facility] Test(s) 379760-Yandmrf B6 was developed and its performance characteristics determined by [facility]. It has not been cleared or approved by the Food and Drug Administration. Bilirubin.total [Mass/volume] in Serum or Plasma 0.3 mg/dL 0.0-1.2 [facility] ([facility] Test(s) 959570-Dpfrahc B6 was developed and its performance characteristics determined by [facility]. It has not been cleared or approved by the Food and Drug Administration. Aspartate aminotransferase [Enzymatic activity/volume] in Serum or Plasma 22 IU/L 0-40 [facility] ([facility] Test(s) 718155-Jazylsu B6 was developed and its performance characteristics determined by [facility]. It has not been cleared or approved by the Food and Drug Administration. Alkaline phosphatase [Enzymatic activity/volume] in Serum or Plasma 59 IU/L 39-117 [facility] ([facility] Test(s) 466834-Resfsii B6 was developed and its performance characteristics determined by [facility]. It has not been cleared or approved by the Food and Drug Administration. Alanine aminotransferase [Enzymatic activity/volume] in Seru m or Plasma 37 IU/L 0-44 [facility] ([facility] Test(s) 675237-Pwtrtfq B6 was developed and its performance characteristics determined by [facility]. It has not been cleared or approved by the Food and Drug Administration. ID Date Data Source [id number] 04/27/2020 02:00:00 PM EST [facility] ([facility] Name Value Range Interpretation Code Description Data Silvia rce(s) Supporting Document(s) Lyme IgG/IgM Ab Laboratory test result 0.00-0.90 [facility] ([facility] Test(s) 301334-Ckshffq B6 was developed and its performance characteristics determined by [facility]. It has not been cleared or approved by the Food and Drug Administration. Borrelia burgdorferi IgM Ab [Units/volume] in Serum Laborato ry test result 0.00-0.79 [facility] ([facility] Test(s) 453348-Rlsxrnl B6 was developed and its performance characteristics determined by [facility]. It has not been cleared or approved by the Food and Drug Administration. ID Date Data Source [id number] 04/27/2020 02:00:00 PM EST [facility] ([facility] Name Value Range Interpretation Code Description Data Silvia rce(s) Supporting Document(s) Nuclear Ab [Titer] in Serum by Immunofluorescence Laboratory test res ult [facility] ([facility] Test(s) 931876-Rugfehq B6 was developed and its performance characteristics determined by [facility]. It has not been cleared or approved by the Food and Drug Administration. ID Date Data Source [id number] 04/27/2020 02:00:00 PM EST [facility] ([facility] Name Value Range Interpretation Code Description Data Silvia rce(s) Supporting Document(s) Vitamin E(Gamma Tocopherol) 1.4 mg/L 0.5-5.5 [facility] ([facility] Test(s) 245549-Bnguwom B6 was developed and its performance characteristics determined by [facility]. It has not been cleared or approved by the Food and Drug Administration. ID Date Data Source [id number] 04/28/2020 07:05:00 AM EST [facility] Name Value [...] 0.0-0.1 [facility] ID Date Data Source [id number] 04/28/2020 08:08:00 AM EST [facility] Name Value Range Interpretation Code Description Data Silvia rce(s) Supporting Document(s) T4,Free(Direct) 1.09 ng/dL 0.82-1.77 [facility] ID Date Data Source [id number] 04/28/2020 09:06:00 AM EST [facility] Name Value [...] IU/L 0-44 [facility] ID Date Data Source [id number] 04/28/2020 02:06:00 PM EST [facility] Name Value Range Interpretation Code Description Data Silvia rce(s) Supporting Document(s) Lyme IgG/IgM Ab 0.00-0.90 [facility] Negative <0.91 Equiv[facility] 0.91 - 1.09 Positive >1.09 Lyme Disease Ab, Quant, IgM 0.00-0.79 [facility] Negative <0.80 Equivocal 0.80 - 1.19 Positive >1.19 IgM levels may peak at 3-6 weeks post infection, then gradually decline. ID Date Data Source [id number] 04/28/2020 03:06:00 PM EST [facility] Name Value Range Interpretation Code Description Data Silvia rce(s) Supporting Document(s) Vitamin B12 320 pg/mL 232-1245 [facility] Folate (Folic Acid), Serum 16.0 ng/mL >3.0 [facility] A serum folate concentration of less brent n 3.1 ng/mL isconsidered to represent clinical deficiency. ID Date Data Source [id number] 04/28/2020 11:05:00 PM EST [facility] Name Value Range Interpretation Code Description Data Silvia rce(s) Supporting Document(s) Antinuclear Antibodies, IFA Negative [facility] Negative <1:80 Borderline 1:80 Positive >1:80 ID Date Data Source [id number] 05/01/2020 07:05:00 PM EST [facility] Name Value Range Interpretation Code Description Data Silvia rce(s) Supporting Document(s) Vitamin B6 32.7 ug/L 5.3-46.7 [facility] ID Date Data Source [id number] 05/02/2020 03:05:00 PM EST [facility] Name Value Range Interpretation Code Description Data Silvia rce(s) Supporting Document(s) Vitamin E(Alpha Tocopherol) 10.8 mg/L 7.0-25.1 [facility] Vitamin E(Gamma Tocopherol) 1.4 mg/L 0.5-5.5 [facility] Reference intervals for alpha and gamma- tocopherol determined from[place] Health and Nutrition Examination Survey, 1210-9849.Individuals with alpha- tocopherol levels less than 5.0 mg/L areconsidered vitamin E deficient. ID Date Data Source [id number] 04/28/2020 08:08:00 AM EST [facility] Name Value Range Interpretation Code Description Data Silvia rce(s) Supporting Document(s) TSH 0.862 uIU/mL 0.450-4.500 [facility] ID Date Data Source [id number] 05/02/2020 03:05:00 PM EST [facility] Name Value Range Interpretation Code Description Data Silvia rce(s) Supporting Document(s) Vit. B1, Whole Blood 125.6 nmol/L 66.5-200.0 [facility] ID Date Data Source [id number] 04/28/2020 08:08:00 AM EST [facility] Name Value Range Interpretation Code Description Data Silvia rce(s) Supporting Document(s) RA Latex Turbid. 0.0-13.9 [facility] ID Date Data Source [id number] 04/28/2020 08:08:00 AM EST [facility] Name Value Range Interpretation Code Description Data Silvia rce(s) Supporting Document(s) Vitamin D, 25-Hydroxy 35.3 ng/mL 30.0-100.0 [facility] Vitamin D deficiency has been defined by the [place] of[place] and an Endocrine Society practice guideline as alevel of serum 25-OH vitamin D less than 20 ng/mL (1,2).The Endocrine Society went on to further define vitamin Dinsufficiency as a level between 21 and 29 ng/mL (2).1. IOM ([place] [employer]). 2010. Dietary reference intakes for calcium and D. [place]: The National Academies Press.2. Alonzo MF, Yung NC, Liliya CROW, et al. Evaluation, treatment, and prevention of vitamin D deficiency: an Endocrine Society clinical practice guideline. JCEM. 2010; 96(8):6001-30. ID Date Data Source [id number] 04/28/2020 08:08:00 AM EST [facility] Name Value Range Interpretation Code Description Data Silvia rce(s) Supporting Document(s) Sedimentation Rate-Westergren 20 mm/hr 0-30 [facility] ID Date Data Source [id number] 04/27/2020 02:00:00 PM EST [facility] ([facility] Name Value Range Interpretation Code Description Data [facility] rce(s) Supporting Document(s) Thyroxine (T4) free [Mass/volume] in Serum or Plasma 1.09 ng/dL 0.82- 1.77 [facility] ([facility] ID Date Data Source [id number] 03/10/2020 01:10:00 PM EST [facility] ([facility] Name Value Range Interpretation Code [facility]) Amphetamines Level Urine Laboratory test result [facility] ([facility] Barbiturates Urine Laboratory test result [facility] ([facility] Benzodiazepines Urine Laboratory test [...] CALL THE LAB. ID Date Data Source [id number] 03/10/2020 01:01:00 PM EST [facility] (Kayla Saldana [...] <content>Troponin I Reference Interval f or Siemens Elmer LOCI:</content>
<content></content>
<content>99th Percentile= 0.00-0.045 ng/ml</content>
<content></content>
<content>Risk Stratification:</content>
<content><= 0.10 ng/ml Decreased Risk for Adverse Clinical</content>
<content>Events.</content>
<content>0.10-1.50 ng/ml Increased Risk for Adverse Clinical</content>
<content>Events. Evaluation of additional</content>
<content>criterion and/or repeat testing in 2-6</content>
<content>hours is suggested to rule out myocardial</content>
<content>damage.</content>
<content>>= 1.50 ng/ml Indicative of Myocardial Injury.</content>
<content></content> ID Date Data Source [id number] 03/10/2020 10:34:00 AM EST [facility] (Kayla Saldana [...] % 36.0-66.0 [facility] ([facility] [place] % 9.5 % 0.0-5.0 [facility] ([facility] Eos % 1.1 % 0.0-3.0 [facility] ([facility] Nucleated Red Blood Cell % 0.0 % 0-0 [facility] ([facility] Baso % 0.7 % 0.0-1.0 [facility] ([facility] Immature Granulocyte % 0.4 % 0-3.0 [facility] ([facility] [place] # 0.7 10 0.0-0.8 [facility] ([facility] Neutrophils # 4.5 10 1.5-8.5 [facility] ([facility] Lymph # 1.8 10 1.5-5.0 [facility] ([facility] Baso # 0.1 10 0.0-0.2 [facility] ([facility] Eos # 0.1 10 0.0-0.5 [facility] ([facility] ID Date Data Source [id number] 03/10/2020 10:34:00 AM EST [facility] (Kayla Saldana [...] MYOCARDIAL INFARCTION 2.5-3.5 ID Date Data Source [id number] 03/10/2020 10:34:00 AM EST [facility] ([facility] Name Value Range Interpretation Code Description Data Silvia rce(s) Supporting Document(s) aPTT in Platelet poor plasma by Coagulation assay 25.3 s 24.2-38. 5 [facility] ([facility] ID Date Data Source [id number] 03/10/2020 10:34:00 AM EST [facility] (Kayla Saldana [...] <content>Troponin I Reference Interval f or Siemens Elmer LOCI:</content>
<content></content>
<content>99th Percentile= 0.00-0.045 ng/ml</content>
<content></content>
<content>Risk Stratification:</content>
<content><= 0.10 ng/ml Decreased Risk for Adverse Clinical</content>
<content>Events.</content>
<content>0.10-1.50 ng/ml Increased Risk for Adverse Clinical</content>
<content>Events. Evaluation of additional</content>
<content>criterion and/or repeat testing in 2-6</content>
<content>hours is suggested to rule out myocardial</content>
<content>damage.</content>
<content>>= 1.50 ng/ml Indicative of Myocardial Injury.</content>
<content></content> ID Date Data Source [id number] 03/10/2020 10:34:00 AM EST [facility] ([facility]la Saldana [...] [facility] ID Date Data Source [id number] 03/10/2020 10:34:00 AM EST [facility] (Kayla Saldana [...] Little GFR Left</content>
<content>ESRD GFR <15 on [employer]</content>
<content></content> Potassium Serum 4.4 meq/L 3.5-5.1 [facility] ([facility] Carbon Dioxide Level 30 meq/L 21-32 [facility] ([facility] Chloride Level 103 meq/L 98-107 [facility] Anion Gap 5 meq/L 8-16 [facility] ([facility] Calcium Level 9.2 mg/dL 8.5-10.1 [facility] ([facility] ID Date Data Source [id number] 03/10/2020 10:34:00 AM EST [facility] ([facility]la Saldana [...] [facility] ID Date Data Source [id number] 03/10/2020 10:00:00 AM EST [facility] ([facility] Name Value Range Interpretation Code Description [facility] Supporting Document(s) Coronavirus 2019 Nasopharygeal Laboratory test result [facility] ([facility] This nucleic acid amplification test was developed and its performance characteristics determined by [employer]. Nucleic acid amplification tests include PCR and [...] detected) result in this assay. Performed at: [employer] [facility] [address] [facility], [place] [id number] [employer]aper Machine: Pooja Vidal PhD, Phone: [phone] Not Detected ID Date Data Source [id number] 03/10/2020 10:00:00 AM EST [facility] Name Value Range Interpretation Code Description Data Silvia rce(s) Supporting Document(s) SARS coronavirus 2 RNA [facility] This lab was ordered by [facility] and reported by [facility]. ID Date Data Source [id number] 02/29/2020 08:40:00 AM EST [facility] Name Value Range Interpretation Code Description Data Silvia rce(s) Supporting Document(s) Red Blood Count 4.79 4.30-6.10 [facility] ([facility]) White Blood Count 6.9 4.0-10.0 [facility] ([facility]) Platelets 216 172-450 [facility] ([facility]) Hemoglobin 13.8 [facility] ([facility]) Hematocrit 43.6 [facility] ([facility]) ID Date Data Source [id number] 02/29/2020 08:40:00 AM EST [facility] Name Value Range Interpretation Code Description Data Silvia rce(s) Supporting Document(s) Magnesium Level 2.3 1.8-2.4 [facility] ([facility]) Troponin Laboratory test result [facility] ([facility]) Thyroid Stimulating Hormone 1.130 [facility] ([facility]) ID Date Data Source [id number] 02/29/2020 08:40:00 AM EST [facility] ([facility]) Name Value Range Interpretation Code Description Data Silvia rce(s) Supporting Document(s) Creatine kinase [Enzymatic activity/volume] in Serum or Plasma 121 [facility] ([facility]) CPK-MB 1.8 [facility] ([facility]) ID Date Data Source [id number] 02/29/2020 08:40:00 AM EST [facility] ([facility]) Name Value Range Interpretation Code Description Data Silvia rce(s) Supporting Document(s) Glucose 107 83-110 [facility] ([facility]) Blood Urea Nitrogen 14 7-18 [facility] ([facility]) Creatinine 0.84 0.6-1.0 [facility] ([facility]) Sodium 141 136-145 [facility] Potassium 3.8 3.5-5.1 [facility] Chloride 107 98-107 [facility] Carbon Dioxide 28 21-32 [facility] ([facility]) Calcium 8.8 8.2-9.6 [facility] Glomerular filtration rate/1.73 sq M.pre dicted [Volume Rate/Area] in Serum or Plasma by Creatinine-based formula (MDRD) Laboratory test result [facility] ([facility] [facility]) ID Date Data Source [id number] 02/17/2020 12:00:00 PM EST [facility] ([facility] Name Value Range Interpretation Code Description Data Silvia rce(s) Supporting Document(s) Coronavirus 2019 Nasopharygeal Laboratory test result [facility] ([facility] This nucleic acid amplification test was developed and its performance characteristics determined by [employer]. Nucleic acid amplification tests include PCR and [...] detected) result in this assay. Performed at: [employer] [facility] [address], [place] [address] [id number] Taper Machine: Pooja Vidal PhD, Phone: [phone] Not Detected ID Date Data Source [id number] 02/17/2020 12:00:00 PM EST [facility] Name Value Range Interpretation Code Description Data Silvia rce(s) Supporting Document(s) SARS coronavirus 2 RNA [facility] This lab was ordered by [facility] and reported by [facility]. ID Date Data Source [id number] 08/04/2019 12:00:00 AM EDT [facility] Ines Wilkins Rpa, C Patient Name:DAYNE [id number] Date of : 1965[place] [address] Date of Exam: 08/04/2019#: Fax: [phone] EXAM: [...] above. Consider CTA forfurther evaluation.Accredited by the [employer] in General Ultrasound.DEJUAN Phillips/Paul you for referring DAYNE ENRIQUEZ to our office. Electronically Signed - GREGOR AGRAWAL DO 08/04/19 16:55 Name Value Range Interpretation Code Description Data Silvia rce(s) Supporting Document(s) ID Date Data Source [id number] 07/18/2019 12:00:00 AM EDT [facility] Ines Wilkins Rpa, C Patient Name:DAYNE [id number] Date of : 1965[place] [address] Date of Exam: 07/18/2019#: Fax: [phone] EXAM: [...] Complete abdominal aorticultrasound is recommended.Accredited by the [employer] in General Ultrasound.DEJUAN Phillips/Paul you for referring DAYNE ENRIQUEZ to our office. Electronically Signed - GREGOR AGRAWAL DO 07/18/19 12:04 Name Value Range Interpretation Code Description Data Silvia rce(s) Supporting Document(s) ID Date Data Source [id number] 07/08/2019 01:31:00 PM EDT [facility] ([facility] [...] finding (navigational concept) 0.8 mg/dL 0.6-1.3 [facility] ([facility] ID Date Data Source [id number] 07/08/2019 01:28:00 PM EDT [facility] ([facility] Name Value Range Interpretation Code Description Data Silvia rce(s) Supporting Document(s) Blood Type Laboratory test result [facility] ([facility] AB Screen (Indirect Merary)Vis Laboratory test result [facility] ([facility] ID Date Data Source [id number] 07/08/2019 01:28:00 PM EDT [facility] ([facility] Name Value Range Interpretation Code Description Data Silvia rce(s) Supporting Document(s) CPK Creatine Phosphokinase 196 U/L 39-308 [facility] ([facility] Troponin I Laboratory test result [facility] ([facility] <content>Troponin I Reference Interval f or Siemens Elmer LOCI:</content>
<content></content>
<content>99th Percentile= 0.00-0.045 ng/ml</content>
<content></content>
[...] [facility] ID Date Data Source [id number] 07/08/2019 01:28:00 PM EDT [facility] ([facility] Name Value Range Interpretation Code Description Data [facility] rce(s) Supporting Document(s) aPTT in Platelet poor plasma by Coagulation assay 26.8 s 25.0-38. 4 [facility] ([facility] ID Date Data Source [id number] 07/08/2019 01:28:00 PM EDT [facility] ([facility]la Saldana [...] MYOCARDIAL INFARCTION 2.5-3.5 ID Date Data Source [id number] 07/08/2019 01:28:00 PM EDT [facility] ([facility] Name Value Range Interpretation Code Description [facility] Document(s) White Blood Count 6.4 10 [...] % 36.0-66.0 [facility] ([facility] [place] % 11.8 % 0.0-5.0 [facility] (Kayla max [...] 10 1.5-5.0 [facility] ([facility] [place] # 0.8 10 0.0-0.8 [facility] ([facility] Eos # 0.1 10 0.0-0.5 [facility] ([facility] Baso # 0.0 10 0.0-0.2 [facility] ([facility] ID Date Data Source [id number] 05/21/2019 10:11:00 AM EST [facility] ([facility] Name Value Range Interpretation Code Description Data Silvia rce(s) Supporting Document(s) Influenza virus A+B Ag [Presence] in Throat by Immunof luorescence Laboratory test result [facility] ([facility] ID Date Data Source [id number] 05/17/2019 12:31:00 AM EST [facility] Patient: DAYNE ENRIQUEZ Observation Report - Phys[facility].VisitID: [id number] [place] [address] [phone], MRegistration Date/Time: 05/16/2019 19:48 Weight:127 kg. Height/Length:72 [...] capsule daily, Last: today. (Electronically signed by Cyndi Braxton, PEmely 05/17/2019 00:23) Name Value Range Interpretation Code Description Data Silvia rce(s) Supporting Document(s) ID Date Data Source [id number] 05/17/2019 12:06:00 AM EST [facility] TSYSORDER [id number] Name Value Range Interpretation Code Description Data Silvia rce(s) Supporting Document(s) TROPONIN I < 0.017 ng/mL 0.0-0.056 [facility] ID Date Data Source [id number] 05/16/2019 09:19:00 PM EST [facility] [...] rce(s) Supporting Document(s) ID Date Data Source [id number] 05/16/2019 08:42:00 PM EST [facility] TSYSORDER [id number] Name Value Range Interpretation Code Description Data Silvia rce(s) Supporting Document(s) PARTIAL THROMBOPLASTIN TIME 24.5 SECONDS 21.4-30.2 [facility] ID Date Data Source [id number] 05/16/2019 08:42:00 PM EST [facility] TSYSORDER [id number] Name Value Range Interpretation Code Description Data Silvia rce(s) Supporting Document(s) DDIMER 0.41 mg/LFEU 0.19-0.60 [facility] ID Date Data Source [id number] 05/16/2019 08:42:00 PM EST [facility] TSYSORDER [id number] Name Value Range Interpretation Code Description Data Silvia rce(s) Supporting Document(s) PROTHROMBIN TIME (PATIENT) 10.4 SECONDS 9.2-11.6 [facility] INR 1.00 0.87-1.06 [facility] ID Date Data Source [id number] 05/16/2019 08:40:00 PM EST [facility] TSYSORDER [id number] Name Value Range Interpretation Code Description Data Silvia rce(s) Supporting Document(s) FREE T4 0.90 ng/dL 0.76-1.46 [facility] ID Date Data Source [id number] 05/16/2019 08:40:00 PM EST [facility] TSYSORDER [id number] Name Value Range Interpretation Code Description Data Silvia rce(s) Supporting Document(s) TSH 1.15 uIU/mL 0.36-3.74 [facility] ID Date Data Source [id number] 05/16/2019 08:37:00 PM EST [facility] TSYSORDER [id number] Name Value Range Interpretation Code Description Data Silvia rce(s) Supporting Document(s) MAGNESIUM 2.0 mg/dL 1.8-2.4 [facility] ID Date Data Source [id number] 05/16/2019 08:37:00 PM EST [facility] TSYSORDER [id number] Name Value Range Interpretation Code Description Data Silvia rce(s) Supporting Document(s) B-TYPE NATRIURETIC PEPTIDE 16 pg/ml 0-125 [facility] ID Date Data Source [id number] 05/16/2019 08:37:00 PM EST [facility] TSYSORDER [id number] Name Value Range Interpretation Code Description Data Silvia rce(s) Supporting Document(s) LIPASE 124 U/L 73-393 [facility] ID Date Data Source [id number] 05/16/2019 08:37:00 PM EST [facility] TSYSORDER [id number] Name Value Range Interpretation Code Description Data Silvia rce(s) Supporting Document(s) TROPONIN I < 0.017 ng/mL 0.0-0.056 [facility] ID Date Data Source [id number] 05/16/2019 08:37:00 PM EST [facility] TSYSORDER [id number] Name Value Range Interpretation Code Description Data Silvia rce(s) Supporting Document(s) GLUCOSE 161 mg/dL 74-106 H [facility] BLOOD UREA NITROGEN 12 mg/dL 7-18 [facility] ital CREATININE 0.9 mg/dL 0.7-1.3 [facility] SODIUM 143 mmol/L 136-145 [facility] POTASSIUM 3.6 mmol/L 3.5-5.1 [facility] CHLORIDE 102 mmol/L 98-107 [facility] CO2 30 mmol/L 21-32 [facility] CALCIUM 9.0 mg/dL 8.5-10.1 [facility] ANION GAP 11.0 mmol/L 5-12 [facility] GLOMERULAR FILTRATION RATE 89 mL/min [facility] GFR IS CALCULATED IN mL/min/1.73m2 NGOZI L FUNCTION: >90MILDLY DECREASED: 60-89MILDY TO MODERATELY DECREASED: 45-59 MODERATELY TO SEVERELY DECREASED: 30-44SEVERELY DECREASED: 15-29RENAL FAILURE: <15 AST 33 U/L 15-37 [facility] ALT 71 U/L 12-78 [facility] ALKALINE PHOSPHATASE 51 U/L 46-116 [facility] TOTAL BILIRUBIN 0.3 mg/dL 0.2-1.0 [facility] TOTAL PROTEIN 7.6 g/dl 6.4-8.2 [facility] ALBUMIN 4.2 gm/dL 3.4-5.0 [facility] ID Date Data Source [id number] 05/16/2019 08:26:00 PM [facility] TSYSORDER [id number] Name Value Range Interpretation Code Description Data Silvia e(s) Supporting Document(s) WHITE BLOOD COUNT 6.9 K/mm3 4.0-10.0 [facility] al RED BLOOD COUNT 4.53 M/mm3 4.50-6.00 [facility] HEMOGLOBIN 13.4 gm/dL 14.0-18.0 [facility] HEMATOCRIT 40.7 % 42.0-54.0 [facility] MEAN CELL VOLUME 89.8 fl 80-96 [facility] MEAN CORPUSCULAR HEMOGLOBIN 29.6 pg 27.0-31.0 [facility] MEAN CORPUSCULAR HGB CONC 32.9 g/dl 32.0-36.0 [facility] RED CELL DISTRIBUTION WIDTH 12.7 % 10.0-14.5 [facility] PLATELET COUNT 213 K/mm3 172-450 [facility] MEAN PLATELET VOLUME 10.5 fl 9.0-13.0 [facility] pital GRAN % 62.7 % 50-80.0 [facility] IG% 0.3 % 0.0-0.2 [facility] LYMPH % 27.2 % 25.0-50.0 [facility] MONO % 6.9 % 2.0-10.0 [facility] EOS % 2.2 % 0-5.0 [facility] BASO % 0.7 % 0.0-2.0 [facility] GRAN # 4.4 K/mm3 2.0-8.00 [facility] IG# 0.0 K/mm3 0.0-0.2 [facility] LYMPH # 1.9 K/mm3 1.0-5.0 [facility] MONO # 0.5 K/mm3 0.10-1.20 [facility] EOS # 0.2 K/mm3 0.0-0.5 [facility] BASO # 0.1 K/mm3 0.0-0.2 [facility] Procedure Social History Code Duration Value Status Description Data Source(s ) Smoking 04/27/2020 12:00:00 AM EST - 03/19/1990 12:00:00 AM EST Patient is a former smoker completed Patient is a former smoker [facility] Smoking 02/11/2020 12:00:00 AM EST Patient is a former smoker completed Patient is a former smoker [facility] ([facility]) Vital Signs ID Date Data Source [id number] Name Value Range Interpretation Code Description Data Source(s) Body mass index (BMI) [Ratio] 35.7 kg/m2 35.7 k g/m2 [facility] ([facility] [place] body weight 184 [lb_av] 184 [lb_av] [facility] [...] 85 mm[Hg] 85 mm[Hg] [facility] ([facility]) Ra Systolic blood pressure--supine 142 mm[Hg] 142 mm[Hg] [facility] ([facility]) Ra Diastolic blood pressure--sitting 80 mm[Hg] 80 mm[Hg] [facility] ([facility]) large cuff, Ra; 134/82 LA Systolic blood pressure--sitting 133 mm[Hg] 133 mm[Hg] [facility] ([facility]) large cuff, Ra; 134/82 LA Respiratory rate 16 /min 16 /min [facility] ( [facility]) Heart rate 72 /min 72 /min [facility] ([facility]io [facility]y [facility]) regular Body mass index (BMI) [Ratio] 36.5 kg/m2 36.5 k g/m2 [facility] ([facility]) Body height 72 [in_i] 72 [in_i] [facility] ([facility]i [facility]) 6'0" Body weight 269.00 [lb_av] 269.00 [lb_av] [facility] T ([facility]) Systolic blood pressure 133 mm[Hg] 133 mm[Hg] M [facility] ([facility] Body mass index (BMI) [Ratio] 35.8 kg/m2 35.8 k g/m2 [facility] ([facility] [place] body weight 184 [lb_av] 184 [lb_av] MED[facility] [...] k g/m2 [facility] ([facility] [place] body weight 184 [lb_av] 184 [lb_av] [facility] [...] Systolic blood pressure 119 mm[Hg] 119 [facility]Hg] [facility] Body weight 124.286 kg 124.286 kg [facility] ([facility]) Body mass index (BMI) [Ratio] 37.2 kg/m2 37.2 k g/m2 [facility] ([facility]) Body weight 274.00 [lb_av] 274.00 [lb_av] [facility] T ([facility]) Body height 72 [in_i] 72 [in_i] [facility] ([facility]) 6'0" Diastolic blood pressure 82 mm[Hg] 82 mm[Hg] [facility] ([facility]) Systolic blood pressure 122 mm[Hg] 122 mm[Hg] [facility] ([facility]) Body mass index (BMI) [Ratio] 36.7 kg/m2 36.7 k g/m2 [facility] ([facility] [place] body weight 184 [lb_av] 184 [lb_av] [facility] Oxygen saturation [...] P.C.) Heart rate 80 /min 80 /min [facility] ([facility] Diastolic blood pressure 69 mm[Hg] 69 mm[Hg] [facility] ([facility] Systolic blood pressure 132 mm[Hg] 132 mm[Hg] [facility] ([facility]
[2020-05-04 01:00] VITALS: BP 128/68
--- NOTE | 2020-05-05 15:33 | ECGEPIP ---
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
== END 2020-05-04 01:37 | disposition home or self-care (01) ==
LOC: M ED 21:22
DX: R20.2 Paresthesia of skin (principal); M54.2 Cervicalgia; R01.1 Cardiac murmur, unspecified; Z79.899 Other long term (current) drug therapy
CPT/HCPCS: 70450; 70496; 70498; 71045; 80047; 82330; 82550; 82553; 83735; 84484; 85025; 85610; 85730; 93005; 93041; 94760; 99285; Q9967

== ENCOUNTER → 2020-05-28 | Outpatient (CLI) | payer BC, OTHER ==
[~2020-05-28] MED LIST changes: +ZINC220CA PO
--- NOTE | 2020-05-31 16:18 | SLEEPHOME ---
DATE: 05/28/2020 ORDERED BY: Simeon Zavala MD Diagnostic home sleep testing was performed due to concern for the obstructive sleep apnea syndrome in this patient with a history of pulmonary hypertension. For testing, a nocturnal T3 respiratory monitoring device was used. Continuous record was made of pulse, oxygen saturation, air flow, chest and abdominal strain, and body position. Nine hours and 59 minutes of data were reviewed. There were 8 hours and 51 minutes marked as time in bed. During the interval marked time in bed, there were 45 respiratory events identified of 10 seconds in duration or greater for a respiratory event index of 5.1. The events were primarily obstructive. Baseline pulse rate was 62 beats per minute. Pulse rate ranged 55 to 92. Baseline saturation was 92%. Saturations did fall to 83% and the oxygen desaturation index was 2. Testing was performed in both the supine and nonsupine positions. IMPRESSION: Abnormal home sleep testing with repetitive respiratory events and oxygen desaturations to 83% with a respiratory event index of 5.1 is consistent with the obstructive sleep apnea syndrome. RECOMMENDATION: Given this patient's history of pulmonary hypertension, referral for formal sleep evaluation is recommended.
== END ==
LOC: M SLEEP HO 10:06
PROVIDERS: ATTEND Internal Medicine Cardiovascular Disease
DX: I27.20 Pulmonary hypertension, unspecified (principal)

== ENCOUNTER 2020-10-19 12:56 | Emergency (ER) | payer BC, OTHER ==
[~2020-10-19] VITALS: Ht 185.4 cm; Wt 125.0 kg
[~2020-10-19 12:56] MED LIST changes: +OMEP40CA4 PO; -OMEP40CA97 PO
[2020-10-19] MEDS ORDERED: NS 1,000 ML IV ONE (17:00)
[2020-10-19 17:37] LABS: BASO # 0.1 10^3/uL (0.0-0.2); BASO % 0.7 % (0.0-1.0); EOS # 0.1 10^3/uL (0.0-0.5); EOS % 1.7 % (0.0-3.0); HEMATOCRIT 45.9 % (42.0-52.0); HEMOGLOBIN 14.9 g/dl (13.5-17.5); LYMPH # 1.8 10^3/uL (1.5-5.0); LYMPH % 26.1 % (24.0-44.0); MEAN CORPUSCULAR HEMOGLOBIN 29.4 pg (27.0-33.0); MEAN CORPUSCULAR HGB CONC 32.5 g/dl (32.0-36.5); MEAN CORPUSCULAR VOLUME 90.7 fl (80.0-96.0); MONO # 0.7 10^3/uL (0.0-0.8); MONO % 10.5 % (2.0-8.0); NEUTROPHILS # 4.2 10^3/uL (1.5-8.5); NEUTROPHILS % 60.7 % (36.0-66.0); PLATELET COUNT, AUTOMATED 252 10^3/uL (150-450); RED BLOOD COUNT 5.06 10^6/uL (4.30-6.10)
[2020-10-19 18:02] LABS: ALBUMIN 4.1 GM/DL (3.2-5.2); BILIRUBIN,DIRECT 0.1 MG/DL (0.0-0.2); BILIRUBIN,TOTAL 0.4 MG/DL (0.2-1.0)
[2020-10-19 18:03] LABS: CK-MB VALUE MASS 1.2 NG/ML (<3.6); CPK CREATINE PHOSPHOKINASE 111 U/L (39-308); MB/CK RELATIVE INDEX 1.08 (< OR =4); TROPONIN I < 0.02 NG/ML (< 0.10)
[2020-10-19] MEDS ORDERED: ISOVUE-370 76% 100ML VIAL As Ordered ONE (19:51)
[2020-10-19 21:26] VITALS: BP 138/83
== END 2020-10-19 21:29 | disposition home or self-care (01) ==
LOC: M ED 12:56
DX: R22.41 Localized swelling, mass and lump, right lower limb (principal); K80.20 Calculus of gallbladder without cholecystitis without obstruction; I71.2 Thoracic aortic aneurysm, without rupture; Z87.891 Personal history of nicotine dependence; Z79.899 Other long term (current) drug therapy
CPT/HCPCS: 71046; 71275; 80047; 80076; 82550; 82553; 83690; 84484; 85025; 85379; 93005; 93971; 96360; 96361; 99284; Q9967

== ENCOUNTER → 2021-01-31 | Outpatient (REF) | payer OTHER, BC ==
[2021-01-31 14:25] LABS: CRYSTALS, BODY FLUID NONE SEEN (NONE SEEN); SOURCE, BODY FLUID CRYSTALS RT KNEE
[2021-01-31 14:39] LABS: SOURCE, BODY FLUID RT KNEE; SYNOVIAL FLUID COLOR YELLOW (COLORLESS)
[2021-01-31 15:08] LABS: SOURCE, BODY FLUID GLUCOSE RT KNEE
[2021-02-01 09:50] LABS: BODY FLUID RHEUMATOID SCREEN NEGATIVE (NEGATIVE)
[2021-02-01 09:51] LABS: MUCIN CLOT TEST 4+ (4+)
== END ==
LOC: M LAB REF 13:27
PROVIDERS: ATTEND Physician Assistant Surgical
DX: S83.281D Other tear of lateral meniscus, current injury, right knee, subsequent encounter (principal)

== ENCOUNTER → 2021-10-21 | Outpatient (REF) | payer OTHER ==
[~2021-10-21] MED LIST changes: -D31000TA2 PO; +VITA100093 PO
[2021-10-21 17:06] LABS: BASO # 0.1 10^3/uL (0.0-0.2); BASO % 0.7 % (0.0-1.0); EOS # 0.2 10^3/uL (0.0-0.5); EOS % 2.1 % (0.0-3.0); HEMATOCRIT 42.8 % (42.0-52.0); HEMOGLOBIN 13.7 g/dl (13.5-17.5); LYMPH # 1.6 10^3/uL (1.5-5.0); LYMPH % 19.7 % (24.0-44.0); MEAN CORPUSCULAR VOLUME 90.5 fl (80.0-96.0); MONO # 0.8 10^3/uL (0.0-0.8); MONO % 9.1 % (2.0-8.0); NEUTROPHILS # 5.6 10^3/uL (1.5-8.5); PLATELET COUNT, AUTOMATED 209 10^3/uL (150-450); RED BLOOD COUNT 4.73 10^6/uL (4.30-6.10); WHITE BLOOD COUNT 8.2 10^3/uL (4.0-10.0)
[2021-10-21 17:32] LABS: ALBUMIN 3.6 GM/DL (3.2-5.2); ALT/SGPT 65 U/L (12-78); BILIRUBIN,TOTAL 0.4 MG/DL (0.2-1.0); BLOOD UREA NITROGEN 12 MG/DL (7-18); C REACTIVE PROTEIN QUANTITATIV 0.79 MG/DL (0.00-0.30); CALCIUM LEVEL 9.3 MG/DL (8.5-10.1); CARBON DIOXIDE LEVEL 30 MEQ/L (21-32); CHLORIDE LEVEL 104 MEQ/L (98-107); CREATININE FOR GFR 0.73 MG/DL (0.70-1.30); GLOMERULAR FILTRATION RATE > 60.0 (>56); GLUCOSE, FASTING 97 MG/DL (70-100); POTASSIUM SERUM 4.1 MEQ/L (3.5-5.1); SODIUM LEVEL 140 MEQ/L (136-145); TOTAL PROTEIN 7.5 GM/DL (6.4-8.2)
[2021-10-21 17:51] LABS: ERYTHROCYTE SEDIMENTATION RATE 18 mm/hr (0-20)
[2021-10-21 18:09] LABS: HEPATITIS B SURFACE ANTIGEN NEGATIVE (NEGATIVE)
[2021-10-21 18:35] LABS: HEPATITIS C VIRUS ABY INDEX < 0.0 INDEX (<0.8)
[2021-10-21 18:36] LABS: HEPATITIS B CORE ANTIBODY IGM NEGATIVE (NEGATIVE)
== END ==
LOC: M SFHCRHEU 12:47
PROVIDERS: ATTEND Internal Medicine Rheumatology
DX: L40.8 Other psoriasis (principal); M25.50 Pain in unspecified joint

== ENCOUNTER → 2021-11-04 | Outpatient (CLI) | payer OTHER | LOC: M WUC 09:45 | PROVIDERS: ATTEND Internal Medicine Rheumatology | DX: M25.78 Osteophyte, vertebrae (principal); M50.20 Other cervical disc displacement, unspecified cervical region; M77.32 Calcaneal spur, left foot; M43.17 Spondylolisthesis, lumbosacral region; L40.8 Other psoriasis; M25.50 Pain in unspecified joint ==

== ENCOUNTER → 2021-12-13 | Outpatient (CLI) | payer OTHER | LOC: M WUC 14:35 | PROVIDERS: ATTEND Nurse Practitioner Family | DX: R22.0 Localized swelling, mass and lump, head (principal) ==

== ENCOUNTER → 2022-04-17 | Outpatient (CLI) | payer BC, OTHER | LOC: M WHC 12:57 | PROVIDERS: ATTEND Nurse Practitioner Family | DX: R22.1 Localized swelling, mass and lump, neck (principal) ==

== ENCOUNTER 2022-05-06 21:35 | Emergency (ER) | payer BC, OTHER ==
[~2022-05-06] VITALS: Ht 182.9 cm; Wt 124.1 kg
[2022-05-06] MEDS ORDERED: DEPA250T32 PO (21:51)
[2022-05-06] MEDS ORDERED: CALC0.009 TOP (21:51)
[2022-05-06] MEDS ORDERED: CARV3.12 PO (21:51)
[2022-05-06] MEDS ORDERED: AUGM0.05 TOP (21:51)
[2022-05-06] MEDS ORDERED: PROT0.1O TOP (21:51)
[2022-05-07] MEDS ORDERED: NS 1,000 ML IV ONE
[2022-05-07 00:26] LABS: BASO % 0.6 % (0.0-1.0); EOS # 0.2 10^3/uL (0.0-0.5); EOS % 2.4 % (0.0-3.0); HEMATOCRIT 43.5 % (42.0-52.0); HEMOGLOBIN 13.8 g/dl (13.5-17.5); LYMPH # 2.2 10^3/uL (1.5-5.0); LYMPH % 32.7 % (24.0-44.0); MEAN CORPUSCULAR HEMOGLOBIN 29.1 pg (27.0-33.0); MEAN CORPUSCULAR HGB CONC 31.7 g/dl (32.0-36.5); MEAN CORPUSCULAR VOLUME 91.6 fl (80.0-96.0); MONO # 0.8 10^3/uL (0.0-0.8); MONO % 12.4 % (2.0-8.0); NEUTROPHILS # 3.4 10^3/uL (1.5-8.5); NEUTROPHILS % 51.6 % (36.0-66.0); PLATELET COUNT, AUTOMATED 339 10^3/uL (150-450); RED BLOOD COUNT 4.75 10^6/uL (4.30-6.10); WHITE BLOOD COUNT 6.6 10^3/uL (4.0-10.0)
[2022-05-07 00:28] LABS: BLOOD UREA NITROGEN 14 MG/DL (9-23); CARBON DIOXIDE LEVEL 28 MMOL/L (20-31); CHLORIDE LEVEL 104 MMOL/L (98-107); CK-MB VALUE MASS 1.1 NG/ML (<3.6); CPK CREATINE PHOSPHOKINASE 100 U/L (46-171); CREATININE FOR GFR 0.76 MG/DL (0.70-1.30); GLOMERULAR FILTRATION RATE > 60.0 (>56); GLUCOSE, FASTING 111 MG/DL (60-100); MAGNESIUM LEVEL 2.1 MG/DL (1.8-2.4); POTASSIUM SERUM 4.1 MMOL/L (3.5-5.1); SODIUM LEVEL 139 MMOL/L (136-145)
[2022-05-07 00:30] LABS: FREE T4 1.09 NG/DL (0.89-1.76); THYROID STIMULATING HORMONE 2.792 uIU/ML (0.55-4.78)
[2022-05-07 01:02] LABS: RSV AMPLIFICATION NEGATIVE (NEGATIVE)
[2022-05-07 01:37] LABS: CK-MB VALUE MASS < 1.0 NG/ML (<3.6)
[2022-05-07 01:41] LABS: CPK CREATINE PHOSPHOKINASE 82 U/L (46-171); MB/CK RELATIVE INDEX 1.21 (< OR =4)
[2022-05-07 02:00] VITALS: BP 143/85
== END 2022-05-07 02:14 | disposition home or self-care (01) ==
LOC: M ED 21:35
DX: R53.83 Other fatigue (principal); R42 Dizziness and giddiness; I44.4 Left anterior fascicular block; K21.9 Gastro-esophageal reflux disease without esophagitis; I10 Essential (primary) hypertension; Z88.8 Allergy status to other drugs, medicaments and biological substances; F17.200 Nicotine dependence, unspecified, uncomplicated; Z79.83 Long term (current) use of bisphosphonates; Z79.899 Other long term (current) drug therapy

== ENCOUNTER → 2022-06-05 | Outpatient (CLI) | payer BC, OTHER ==
[~2022-06-05] MED LIST changes: +AUGM0.05 TOP; +CALC0.009 TOP; +CARV3.12 PO; +DEPA250T32 PO; +PROT0.1O TOP
== END ==
LOC: M CARPUL 13:14
PROVIDERS: ATTEND Nurse Practitioner Family
DX: I42.9 Cardiomyopathy, unspecified (principal); I08.2 Rheumatic disorders of both aortic and tricuspid valves

== ENCOUNTER → 2022-12-25 | Outpatient (CLI) | payer BC, OTHER | LOC: M PLAIMG 10:03 | PROVIDERS: ATTEND Psychiatry & Neurology Neurology | DX: G44.009 Cluster headache syndrome, unspecified, not intractable (principal); H53.8 Other visual disturbances; R42 Dizziness and giddiness ==

== ENCOUNTER → 2023-04-18 | Outpatient (REF) | payer OTHER ==
[2023-04-18 15:24] LABS: HIV 1&2 SCREEN NEGATIVE (NEGATIVE)
[2023-04-18 15:32] LABS: HEPATITIS B CORE ANTIBODY IGM NEGATIVE (NEGATIVE); HEPATITIS C VIRUS ABY INDEX 0.02 INDEX (<0.8)
== END ==
LOC: M SFHCADAM 07:51
PROVIDERS: ATTEND Physician Assistant
DX: L40.9 Psoriasis, unspecified (principal)

== ENCOUNTER 2023-05-29 19:14 | Observation (INO) | payer BC, OTHER ==
[~2023-05-29] VITALS: Ht 182.9 cm; Wt 125.6 kg
[~2023-05-29 19:14] MED LIST changes: +CALC0.0017 TOP; -CALC0.009 TOP
[2023-05-29 20:55] LABS: BASO # 0.1 10^3/uL (0.0-0.2); BASO % 0.7 % (0.0-1.0); EOS # 0.1 10^3/uL (0.0-0.5); EOS % 1.7 % (0.0-3.0); HEMATOCRIT 45.3 % (42.0-52.0); HEMOGLOBIN 14.9 g/dl (13.5-17.5); LYMPH # 2.3 10^3/uL (1.5-5.0); LYMPH % 27.4 % (24.0-44.0); MEAN CORPUSCULAR HEMOGLOBIN 29.6 pg (27.0-33.0); MEAN CORPUSCULAR HGB CONC 32.9 g/dl (32.0-36.5); MEAN CORPUSCULAR VOLUME 89.9 fl (80.0-96.0); MONO # 0.9 10^3/uL (0.0-0.8); NEUTROPHILS # 4.8 10^3/uL (1.5-8.5); NEUTROPHILS % 58.3 % (36.0-66.0); PLATELET COUNT, AUTOMATED 250 10^3/uL (150-450); RED BLOOD COUNT 5.04 10^6/uL (4.30-6.10); WHITE BLOOD COUNT 8.2 10^3/uL (4.0-10.0)
[2023-05-29 21:27] LABS: ALBUMIN 3.7 G/DL (3.2-5.2); ALKALINE PHOSPHATASE 61 U/L (46-116); ALT/SGPT 74 U/L (7.0-40); AST/SGOT 30 U/L (<34); BILIRUBIN,TOTAL 0.3 MG/DL (0.3-1.2); BLOOD UREA NITROGEN 16 MG/DL (9-23); CALCIUM LEVEL 9.1 MG/DL (8.5-10.1); CARBON DIOXIDE LEVEL 28 MMOL/L (20-31); CHLORIDE LEVEL 106 MMOL/L (98-107); CREATININE FOR GFR 0.67 MG/DL (0.70-1.30); GLOMERULAR FILTRATION RATE > 60.0 (>56); GLUCOSE, FASTING 105 MG/DL (60-100); POTASSIUM SERUM 4.3 MMOL/L (3.5-5.1); SODIUM LEVEL 140 MMOL/L (136-145); TOTAL PROTEIN 7.2 G/DL (5.7-8.2)
[2023-05-29 21:32] LABS: RSV AMPLIFICATION NEGATIVE (NEGATIVE)
[2023-05-30 01:20] LABS: CK-MB VALUE MASS 1.3 NG/ML (<3.6)
[2023-05-30 01:22] LABS: CPK CREATINE PHOSPHOKINASE 89 U/L (46-171); MB/CK RELATIVE INDEX 1.46 (< OR =4)
[2023-05-30 02:24] LABS: CK-MB VALUE MASS 1.4 NG/ML (<3.6)
[2023-05-30 02:27] LABS: MB/CK RELATIVE INDEX 1.4 (< OR =4)
[2023-05-30] MEDS ORDERED: ISOVUE-370 76% 100ML VIAL As Ordered ONE (03:32)
[2023-05-30 03:44] LABS: VALPROIC ACID (DEPAKOTE) 13.6 UG/ML (50.0-100.0)
[2023-05-30] MEDS ORDERED: ACETAMINOPHEN TAB 650MG DOSE (2X325MG) PO PRN (05:20)
[2023-05-30] MEDS ORDERED: MOM 30ML SUSPENSION UDC PO PRN (05:20)
[2023-05-30] MEDS ORDERED: MAALOX 30 ML SUSP *UDC PO PRN (05:20)
[2023-05-30] MEDS: ASPIRIN 325 MG TAB PO ONE (05:35)
[2023-05-30] MEDS ORDERED: MELO15TA28 PO (06:18)
[2023-05-30] MEDS ORDERED: TRIA1CRE5 EXT (06:18)
[2023-05-30] MEDS ORDERED: COSE1INJ SC (06:18)
[2023-05-30] MEDS ORDERED: CALC0.0017 TOP (06:18)
[2023-05-30] MEDS ORDERED: CARV3.12 PO (06:18)
[2023-05-30] MEDS ORDERED: DIVA250T67 PO (06:18)
[2023-05-30] MEDS ORDERED: HOME MED LIST COMPLETE! XX SCH (06:20)
[2023-05-30 06:25] LABS: RSV AMPLIFICATION NEGATIVE (NEGATIVE)
[2023-05-30] MEDS: CALCIPOTRIENE CREAM 0.005% 60GM TOP SCH (09:00)
[2023-05-30] MEDS: HEPARIN SOD (PORCINE) 5000UNITS/ML 1ML VIAL/SYRINGE SC SCH (09:00)
[2023-05-30] MEDS ORDERED: PROHANCE 279.3MG/ML 5ML VIAL As Ordered ONE (09:42)
[2023-05-30] MEDS ORDERED: PROHANCE 279.3MG/ML 15ML VIAL As Ordered ONE (09:43)
[2023-05-30 10:16] LABS: ERYTHROCYTE SEDIMENTATION RATE 39 mm/hr (0-20)
[2023-05-30] MEDS: OMEPRAZOLE 20MG CAP PO SCH (10:39)
[2023-05-30] MEDS: ASPIRIN 81MG ENTERIC TABLET PO SCH (10:39)
[2023-05-30] MEDS: ATORVASTATIN 20 MG TAB PO SCH (10:40)
[2023-05-30] MEDS ORDERED: LOSA25TA13 PO (11:46)
[2023-05-30] MEDS ORDERED: ATOR1TAB21 PO (11:46)
[2023-05-30] MEDS ORDERED: ASPI81TAEC PO (11:46)
[2023-05-30 13:40] VITALS: BP 152/90; TEMP 97.6; O2SAT 96
[2023-05-30] MEDS ORDERED: DIVALPROEX 250MG TAB PO SCH (21:00)
== END 2023-05-30 23:47 | disposition home or self-care (01) ==
LOC: M ED 19:14 → M ED INP 19:15
PROVIDERS: ADMIT Internal Medicine; ATTEND Internal Medicine
DX: R55 Syncope and collapse (principal); R20.2 Paresthesia of skin; G43.909 Migraine, unspecified, not intractable, without status migrainosus; L40.9 Psoriasis, unspecified; H43.399 Other vitreous opacities, unspecified eye; I35.1 Nonrheumatic aortic (valve) insufficiency; Z79.82 Long term (current) use of aspirin; Z79.899 Other long term (current) drug therapy; Z88.8 Allergy status to other drugs, medicaments and biological substances
CPT/HCPCS: 36415; 70450; 70496; 70498; 70553; 71046; 80053; 80164; 82550; 82553; 84484; 85025; 85652; 86140; 87631; 93005; 93041; 94760; 99285; A9576; Q9967

== ENCOUNTER → 2024-03-05 | Day surgery (SDC) | payer BC ==
[~2024-03-05] VITALS: Ht 182.9 cm; Wt 117.3 kg
[~2024-03-05] MED LIST changes: +ASPI81TAEC PO; +ATOR1TAB21 PO; -AUGM0.05 TOP; +AUGM0.0511 TOP; +COSE1INJ SC; +DIVA250T67 PO; +LOSA25TA13 PO; +MELO15TA28 PO; +RISA150P SQ; +TRIA1CRE5 EXT; +propofoL 200 MG/20 ML VIAL As Ordered ONE
[2024-03-05 10:26] VITALS: TEMP 98.5
[2024-03-05 10:41] VITALS: BP 129/75; O2SAT 94
== END | disposition home or self-care (01) ==
LOC: M OPP 08:42
PROVIDERS: ATTEND Surgery
DX: Z12.11 Encounter for screening for malignant neoplasm of colon (principal); Z86.0100 Personal history of colon polyps, unspecified; K64.0 First degree hemorrhoids; I10 Essential (primary) hypertension; K21.9 Gastro-esophageal reflux disease without esophagitis; G43.909 Migraine, unspecified, not intractable, without status migrainosus; Z87.891 Personal history of nicotine dependence; Z88.8 Allergy status to other drugs, medicaments and biological substances; Z79.899 Other long term (current) drug therapy

== ENCOUNTER → 2024-11-24 | Outpatient (CLI) | payer BC ==
[~2024-11-24] MED LIST changes: -DEPA250T32 PO; +DIVA-65 PO; -propofoL 200 MG/20 ML VIAL As Ordered ONE
[2024-11-24 16:03] LABS: PLATELET COUNT, AUTOMATED 216 10^3/uL (150-450)
[2024-11-24 16:24] LABS: CPK CREATINE PHOSPHOKINASE 82 U/L (46-171)
[2024-11-24 16:26] LABS: FREE T4 1.07 NG/DL (0.89-1.76)
[2024-11-24 16:46] LABS: ALT/SGPT 93 U/L (7.0-40); AST/SGOT 63 U/L (<34); CALCIUM LEVEL 9.4 MG/DL (8.5-10.1); CARBON DIOXIDE LEVEL 29 MMOL/L (20-31); CHLORIDE LEVEL 104 MMOL/L (98-107); CREATININE FOR GFR 0.76 MG/DL (0.70-1.30); GLOMERULAR FILTRATION RATE > 90.0 (>56); MAGNESIUM LEVEL 2.2 MG/DL (1.8-2.4); POTASSIUM SERUM 4.4 MMOL/L (3.5-5.1); SODIUM LEVEL 143 MMOL/L (136-145)
[2024-11-24 18:08] LABS: ATYPICAL LYMPH 15 % (0-5); BASOPHILS 2 % (0-1); EOSINOPHILS 1 % (0-3); LYMPHOCYTES 25 % (16-44); MONOCYTES 3 % (0-5); NEUTROPHILS 53 % (28-66); PLATELET ESTIMATE NORMAL (NORMAL)
== END ==
LOC: M RAD 14:57
PROVIDERS: ATTEND Nurse Practitioner Family
DX: R06.02 Shortness of breath (principal); M79.661 Pain in right lower leg